=== PATIENT | male | born 1955 | race Caucasian/White ===

== ENCOUNTER 2020-06-06 10:27 | Inpatient (IN) | payer OTHER ==
--- NOTE | 2020-06-06 10:54 | ED ---
General Adult HPI - General Chief complaint: Recheck/Abnormal Lab/Rx Stated complaint: hernia, water retention Time Seen by Provider: 06/06/20 10:38 Source: patient Mode of arrival: ambulatory Limitations: no limitations - History of Present Illness Initial comments: 65-year-old male with a past medical history of hypertension, liver disease, alcoholism presents to the emergency room for abdominal distention. Patient reports he has liver disease that required paracentesis one month ago. States 7 L was removed. Patient states that he has had abdominal distention since that time but has been progressively worsening. Today was worse than before so he came into the ER. Patient is from [place] and does not have any medical care here in the [place]. Patient's paracentesis one month ago was at [facility]. Patient has no other complaints at this time including shortness of breath, chest pain, nausea or vomiting, headache, or visual changes. - Related Data Home Medications Medication Instructions Recorded Confirmed No Known Home Medications 06/06/20 06/06/20 Allergies Allergy/AdvReac Type Severity Reaction Status Date / Time No Known Allergies Allergy Verified 06/06/20 12:48 Review of Systems ROS Statement: Those systems with pertinent positive or pertinent negative responses have been documented in the HPI. ROS Other: All systems not noted in ROS Statement are negative. Past Medical History Past Medical History: Hypertension, Liver Disease History of Any Multi-Drug Resistant Organisms: None Reported Past Surgical History: Appendectomy Additional Past Surgical History / Comment(s): paracentesis, jaw Past Psychological History: No Psychological Hx Reported Smoking Status: Never smoker Past Alcohol Use History: None Reported Past Drug Use History: None Reported, Marijuana General Exam Limitations: no limitations General appearance: alert, in no apparent distress Head exam: Present: atraumatic, normocephalic, normal inspection Eye exam: Present: normal appearance, PERRL, EOMI. Absent: scleral icterus, conjunctival injection, periorbital swelling ENT exam: Present: normal exam, mucous membranes moist Neck exam: Present: normal inspection. Absent: tenderness, meningismus, lympha denopathy Respiratory exam: Present: normal lung sounds bilaterally. Absent: respiratory distress, wheezes, rales, rhonchi, stridor Cardiovascular Exam: Present: regular rate, normal rhythm, normal heart sounds. Absent: systolic murmur, diastolic murmur, rubs, gallop, clicks GI/Abdominal exam: Present: soft, distended (Significant abdominal distention with pitting edema), normal bowel sounds. Absent: tenderness, guarding, rebound, rigid Neurological exam: Present: alert Course Vital Signs 06/06/20 06/06/20 06/06/20 10:30 11:34 13:00 Temperature 98.2 F Pulse Rate 97 87 Respiratory 18 18 20 Rate Blood Pressure 147/86 141/83 O2 Sat by Pulse 100 98 Oximetry EKG Findings - EKG Comments: EKG Findings:: Normal sinus rhythm, ventricular rate 92, VA interval 172, QTc 467 Medical Decision Making - Medical Decision Making Vitals are stable. Patient does have a distended abdomen with pitting edema of the abdomen and legs. There Is no erythema of the abdomen. No tenderness. No evidence for a peritonitis. CBC CMP unremarkable. INR 1.2 which is likely secondary to liver disease, patient does not take any blood thinners. X-ray of the abdomen shows a nonobstructive bowel gas pattern. Chest x-ray does show a possible infiltrate versus atelectasis. Patient does not have cough or fever. Suspect this is atelectasis. Discussed case with Dr. Estrada who is on-call for the [facility]. He does except as admission. Agreeable to GI and IR consultation. - Lab Data Result diagrams: 06/06/20 11:15 06/06/20 10:58 Lab Results 06/06/20 06/06/20 06/06/20 Range/Units 10:58 11:15 11:15 WBC 4.4 (3.8-10.6) k/uL RBC 4.14 L (4.30-5.90) m/uL Hgb 14.4 (13.0-17.5) gm/dL Hct 41.7 (39.0-53.0) % MCV 100.8 H (80.0-100.0) fL MCH 34.7 (25.0-35.0) pg MCHC 34.4 (31.0-37.0) g/dL RDW 13.6 (11.5-15.5) % Plt Count 145 L (150-450) k/uL MPV 7.5 Neutrophils % 63 % Lymphocytes % 20 % Monocytes % 10 % Eosinophils % 3 % Basophils % 1 % Neutrophils # 2.8 (1.3-7.7) k/uL Lymphocytes # 0.9 L (1.0-4.8) k/uL Monocytes # 0.4 (0-1.0) k/uL Eosinophils # 0.1 (0-0.7) k/uL Basophils # 0.1 (0-0.2) k/uL Macrocytosis Slight PT 12.7 H (9.0-12.0) sec INR 1.2 H (<1.2) APTT 28.4 (22.0-30.0) sec Sodium 131 L (137-145) mmol/L Potassium 4.5 (3.5-5.1) mmol/L Chloride 102 (98-107) mmol/L Carbon Dioxide 23 (22-30) mmol/L Anion Gap 6 mmol/L BUN 10 (9-20) mg/dL Creatinine 0.63 L (0.66-1.25) mg/dL Est GFR (CKD-EPI)AfAm >90 (>60 ml/min/1.73 sqM) Est GFR (CKD-EPI)NonAf >90 (>60 ml/min/1.73 sqM) Glucose 98 (74-99) mg/dL Calcium 8.6 (8.4-10.2) mg/dL Total Bilirubin 2.3 H (0.2-1.3) mg/dL AST 53 (17-59) U/L ALT 19 (4-49) U/L Alkaline Phosphatase 94 (38-126) U/L Total Protein 8.1 (6.3-8.2) g/dL Albumin 2.8 L (3.5-5.0) g/dL Amylase 48 (30-110) U/L Lipase 95 (23-300) U/L Serum Alcohol <10 mg/dL Disposition Clinical Impression: Anasarca, Liver disease Disposition: ADMITTED IP TO THIS HOSP Is patient prescribed a controlled substance at d/c from ED?: No Referrals: None,Stated [Primary Care Provider] - 1-2 days Time of Disposition: 13:12
[2020-06-06 11:28] LABS: Basophils # (A) 0.1 k/uL (0-0.2); Basophils % (A) 1 %; Eosinophils # (A) 0.1 k/uL (0-0.7); Eosinophils % (A) 3 %; HCT 41.7 % (39.0-53.0); HGB 14.4 gm/dL (13.0-17.5); Lymphocytes # (A) 0.9 k/uL (1.0-4.8); Lymphocytes % (A) 20 %; MCH 34.7 pg (25.0-35.0); MCHC 34.4 g/dL (31.0-37.0); MCV 100.8 fL (80.0-100.0); Macrocytosis Slight; Mean Platelet Volume 7.5; Monocytes # (A) 0.4 k/uL (0-1.0); Monocytes % (A) 10 %; Neutrophils # (A) 2.8 k/uL (1.3-7.7); Neutrophils % (A) 63 %; Platelet Count 145 k/uL (150-450); RBC 4.14 m/uL (4.30-5.90); RDW 13.6 % (11.5-15.5); WBC 4.4 k/uL (3.8-10.6)
[2020-06-06 11:30] LABS: ALT 19 U/L (4-49); AST 53 U/L (17-59); African American GFR (CKD) >90 (>60 ml/min/1.73 sqM); Albumin 2.8 g/dL (3.5-5.0); Alcohol <10 mg/dL; Alkaline Phosphatase 94 U/L (38-126); Amylase 48 U/L (30-110); Anion Gap 6 mmol/L; Blood Urea Nitrogen 10 mg/dL (9-20); Calcium 8.6 mg/dL (8.4-10.2); Carbon Dioxide 23 mmol/L (22-30); Chloride 102 mmol/L (98-107); Glucose 98 mg/dL (74-99); Lipase 95 U/L (23-300); Non-African American GFR(CKD) >90 (>60 ml/min/1.73 sqM); Potassium 4.5 mmol/L (3.5-5.1); Sodium 131 mmol/L (137-145); Total Bilirubin 2.3 mg/dL (0.2-1.3); Total Protein 8.1 g/dL (6.3-8.2)
[2020-06-06 12:09] LABS: INR 1.2 (<1.2); Partial Thromboplastin Time 28.4 sec (22.0-30.0); Prothrombin Time 12.7 sec (9.0-12.0)
--- NOTE | 2020-06-06 12:29 | XR ---
EXAMINATION TYPE: XR KUB DATE OF EXAM: 06/06/2020 COMPARISON: NONE HISTORY: Pain TECHNIQUE: Single supine KUB image of the abdomen is obtained FINDINGS: Small bowel demonstrates no evidence for dilatation or air fluid levels. Gas and fecal material is seen in non-distended colon. No convincing evidence for pneumoperitoneum. No unusual calcifications. The lung bases are clear. The osseous structures are intact. IMPRESSION: 1. Overall nonobstructive bowel gas pattern.
--- NOTE | 2020-06-06 12:29 | XR ---
EXAMINATION TYPE: XR chest 1V portable DATE OF EXAM: 06/06/2020 HISTORY: Shortness of breath. COMPARISON: None. TECHNIQUE: Single view of the chest is submitted. FINDINGS: Demonstrated are scattered senescent parenchymal change. Right basilar infiltrate and/or atelectasis. The remainder of the lungs are clear. The heart is stable. Hilar and mediastinal structures are within normal limits. Degenerative changes are seen of the dorsal spine. IMPRESSION: 1. Right basilar infiltrate and/or atelectasis. The remainder of the lungs are clear.
[2020-06-06] MEDS ORDERED: NALOXONE 0.4 MG/ML 1 ML VIAL IV PRN (13:08)
[2020-06-06] MEDS ORDERED: HYDROmorphone 0.5 MG/0.5 ML SYRINGE IVP STA (13:09)
[2020-06-06] MEDS: SODIUM CHLORIDE 0.9% 1,000 ML IV SCH (13:33)
--- NOTE | 2020-06-06 14:17 | US ---
EXAMINATION TYPE: US abdomen limited DATE OF EXAM: 06/06/2020 COMPARISON: NONE CLINICAL HISTORY: to assess for fluid pocket please.. Ascites Large amount of fluid visualized. Limited abdomen ultrasound performed. IMPRESSION: Large amount of ascites is present.
[2020-06-06 15:21] LABS: Appearance,Urine Cloudy (Clear); Bacteria,Urine Moderate /hpf; Bilirubin,Urine Negative (Negative); Blood,Urine Trace (Negative); Color,Urine Orange; Glucose,Urine (UA) Negative (Negative); Hyaline Casts,Urine 2 /lpf (0-2); Ketones,Urine Trace (Negative); Leukocyte Esterase,Urine Small (Negative); Mucus,Urine Many /hpf; Nitrite,Urine Positive (Negative); Protein,Urine 1+ (Negative); RBC,Urine 9 /hpf (0-5); Specific Gravity,Urine 1.032 (1.001-1.035); Squamous Epithelial Cell,Urine 1 /hpf (0-4); WBC,Urine 18 /hpf (0-5)
[2020-06-06] MEDS: HYDROmorphone 0.5 MG/0.5 ML SYRINGE IVP PRN ×2 (18:23→22:18)
--- NOTE | 2020-06-06 21:03 | HP ---
HISTORY AND PHYSICAL HISTORY OF PRESENT ILLNESS: 65-year-old male with hypertension, liver disease, alcoholism, presents to the emergency room with severe bloating of the abdomen and ascitic wave. He had a paracentesis 1 month ago with 7 L were removed. Since then, he has taken no diuretics. He is from [place]. No medical care in the [place]. He came in with severe swelling of his abdomen and legs, anasarca type changes with severe abdominal girth. Medicines negative. ALLERGIES: Negative. REVIEW OF SYSTEMS: Fourteen-point review of system: Severe some weight gain in the legs and abdomen. PAST MEDICAL HISTORY: History of hypertension, liver disease, hepatitis C. SURGERIES: Appendectomy. Paracentesis. PHYSICAL EXAMINATION: Vital signs are reviewed. Psych: Fair mood and affect. Giving appropriate answers. NEUROLOGIC: Cranial nerves intact. GI is huge ascites and fluid wave to the abdomen. Full-term gravid abdomen size. HEMATOLOGIC: 2 to 3+ edema in the lower legs. ASSESSMENT: 1. Acute on chronic ascites. 2. Hepatitis C. 3. Liver failure. Diuresis, paracentesis will be done. Consult GI. Please see further orders. MMODL / IJN: [id number] /
[2020-06-06] MEDS: FUROSEMIDE 10 MG/ML 2 ML VIAL IV SCH (21:26)
[2020-06-07] MEDS: HYDROmorphone 0.5 MG/0.5 ML SYRINGE IVP PRN ×5 (01:22→23:38)
[2020-06-07 09:18] LABS: Basophils # (A) 0.05 X 10*3/uL (0.00-0.10); Basophils % (A) 1.2 %; Eosinophils # (A) 0.14 X 10*3/uL (0.04-0.35); Eosinophils % (A) 3.3 %; HGB 12.4 g/dL (13.0-17.0); Lymphocytes # (A) 1.14 X 10*3/uL (0.90-5.00); Lymphocytes % (A) 26.9 %; MCH 33.3 pg (27.0-32.0); MCHC 32.6 g/dL (32.0-37.0); MCV 102.2 fL (80.0-97.0); Mean Platelet Volume 8.8 fL (9.5-12.2); Monocytes # (A) 0.57 X 10*3/uL (0.20-1.00); Monocytes % (A) 13.4 %; Neutrophils # (A) 2.33 X 10*3/uL (1.80-7.70); Platelet Count 105 X 10*3/uL (140-440); RBC 3.72 X 10*6/uL (4.40-5.60); RDW 14.4 % (11.5-14.5); WBC 4.24 X 10*3/uL (4.50-10.00)
[2020-06-07] MEDS: FUROSEMIDE 10 MG/ML 2 ML VIAL IV SCH (09:21)
[2020-06-07 10:44] LABS: African American GFR (CKD) 121.4 (60.0-200.0); Albumin 2.5 g/dL (3.80-4.90); Albumin/Globulin Ratio 0.52 (1.60-3.17); Calcium 8.1 mg/dL (8.7-10.3); Globulin 4.8 g/dL (1.6-3.3); Non-African American GFR(CKD) 104.8 (60.0-200.0); Potassium 4.4 mmol/L (3.5-5.5); Total Bilirubin 2.4 mg/dL (0.2-1.2); Total Protein 7.3 g/dL (6.2-8.2)
[2020-06-07 11:28] LABS: INR 1.3 (<1.2); Prothrombin Time 13.2 sec (9.0-12.0)
[2020-06-07] MEDS: THIAMINE 100 MG TAB PO SCH (13:18)
[2020-06-07] MEDS: SODIUM CHLORIDE 0.9% 1,000 ML IV SCH (13:20)
--- NOTE | 2020-06-07 13:50 | US ---
EXAMINATION TYPE: US paracentesis abd w/image DATE OF EXAM: 06/07/2020 COMPARISON: NONE HISTORY: Ascites. PROCEDURE: Maximal barrier technique was utilized. The skin overlying a suitable pocket of fluid was localized with ultrasound and the overlying skin was prepped and draped. Ultrasound was utilized with sterile technique. Lidocaine was used for local anesthesia and a skin jose m made with a scalpel. Catheter was advanced under direct ultrasound guidance into a suitable pocket of fluid and approximately 13.1 lite rs of serous fluid were removed. Catheter was withdrawn and hemostasis achieved. There is no immedi ate complication; the patient is discharged in stable condition. IMPRESSION: STATUS POST ULTRASOUND GUIDED PARACENTESIS FOR PALLIATION OF ASCITES. THIS PROCEDURE WA S PERFORMED BY THE UNDERSIGNED. Specimen obtained for laboratory analysis.
[2020-06-07] MEDS: ALBUMIN HUMAN 25% 50 ML in EMPTY BAG 1 BAG IVPB SCH ×4 (15:42→16:59)
[2020-06-07 16:13] LABS: Appearance,BF Clear; Nucleated Cells, Body Fluid 53 /uL; RBC, Body Fluid 41 /uL
[2020-06-07 17:47] LABS: Mononuclear WBC,Body Fluid 86 %; Polynuclear WBC,Body Fluid 14 %; Total Cells Counted,Body Fluid 100
[2020-06-07] MEDS: FUROSEMIDE 10 MG/ML 4 ML VIAL IV SCH (22:09)
[2020-06-08 00:32] LABS: Total Protein, Body Fluid 1740 mg/dL
--- NOTE | 2020-06-08 00:51 | P.PN ---
Subjective Progress Note Date: 06/07/20 Principal diagnosis: Ascites Alcoholic liver cirrhosis Patient is a 65-year-old male with a known history of alcoholic liver cirrhosis and previous history of paracentesis and alcohol abuse presents to ER with the complaints of abdominal distention and bilateral leg swelling. Patient states that he did have paracentesis about a month ago and removed 7 L fluid. Patient has been having worsening abdominal distention and presented to ER. Denied any complaints of chest pain or shortness of breath. No fever no chills. Denies any abdominal pain. No headache or dizziness or lightheadedness. Patient is from [place] and does not have any medical care in the [place]. 06/07/2020 Patient underwent paracentesis today with 10 L fluid removal. Patient was being infused with albumin currently. No complaints of abdominal pain. Shortness of breath is better. No chest pain. No nausea vomiting abdominal pain or diarrhea. Patient is being continued Lasix 40 mg every 12 and spironolactone 50 mg daily was added. GI is on board. Urine culture showed gram-negative bacilli. Patient will be started ceftriaxone and follow-up with final culture reports. Peritoneal fluid cytology showed no evidence of SBP. Follow-up culture report. Current medications reviewed. Objective - Vital Signs Vital signs: Vital Signs Temp 98.0 F 06/07/20 21:05 Pulse 72 06/07/20 21:05 Resp 18 06/07/20 21:05 BP 108/57 06/07/20 21:05 Pulse Ox 95 06/07/20 21:05 Intake & Output 06/07/20 06/07/20 06/08/20 06:59 18:59 06:59 Intake Total 200 Balance 200 Intake: Oral 200 Other: Voiding Method Toilet Toilet Toilet Urinal Urinal Urinal # Voids 3 1 - Exam PHYSICAL EXAMINATION: Patient is lying in the bed comfortably, no acute distress, awake alert and oriented.. HEENT: Normocephalic. Neck is supple. Pupils reactive. Nostrils clear. Oral cavity is moist. Ears reveal no drainage. Neck reveals no JVD, carotid bruits, or thyromegaly. CHEST EXAMINATION: Trachea is central. Symmetrical expansion. Bibasilar diminished air entry no wheezing or crackles.. CARDIAC: Normal S1, S2 with no gallops. No murmurs ABDOMEN: Soft. Bowel sounds present, Significantly distended abdomen with large ascites. No organomegaly. No abdominal bruits. Extremities: 2+ LE edema. No clubbing or cyanosis Neurologically awake, alert, oriented x3 with well-coordinated movements. No focal deficits noted Skin: No rash or skin lesions. Psychiatric: Coperative. Nonsuicidal Musculoskeletal: No joint swelling or deformity. Normal range of motion. - Labs CBC & Chem 7: 06/07/20 06:06 06/07/20 06:06 Labs: Abnormal Lab Results - Last 24 Hours (Table) 06/06/20 06/07/20 06/07/20 Range/Units 22:36 06:06 06:06 WBC 4.24 L (4.50-10.00) X 10*3/uL RBC 3.72 L (4.40-5.60) X 10*6/uL Hgb 12.4 L (13.0-17.0) g/dL Hct 38.0 L (39.6-50.0) % MCV 102.2 H (80.0-97.0) fL MCH 33.3 H (27.0-32.0) pg Plt Count 105 L (140-440) X 10*3/uL MPV 8.8 L (9.5-12.2) fL PT 13.2 H (9.0-12.0) sec INR 1.3 H (<1.2) Sodium 132 L (135-145) mmol/L Carbon Dioxide 21.0 L (21.6-31.8) mmol/L Calcium 8.1 L (8.7-10.3) mg/dL Total Bilirubin 2.4 H (0.2-1.2) mg/dL AST 55 H (14-35) U/L Albumin 2.50 L (3.80-4.90) g/dL Globulin 4.8 H (1.6-3.3) g/dL Albumin/Globulin Ratio 0.52 L (1.60-3.17) g/dL Microbiology - Last 24 Hours (Table) 06/06/20 14:22 Urine Culture - Preliminary Urine,Clean Catch Gram Neg Bacilli Assessment and Plan Assessment: Recurrent ascites due to alcoholic liver disease Gram-negative bacilli urinary tract infection hepatitis C Prior history of alcohol abuse DVT prophylaxis with heparin subcu Plan: Patient will be continued on IV Lasix and spironolactone. Patient is currently status post paracentesis with 13.1 l fluid removal. GI is on board. Follow-up culture reports. Continue with ceftriaxone due to gram-negative bacilli urinary tract infection. Prognosis guarded at this time. Time with Patient: Greater than 30
[2020-06-08 01:34] LABS: Albumin, Fluid Source Paracentesis Fluid
[2020-06-08] MEDS: HYDROmorphone 0.5 MG/0.5 ML SYRINGE IVP PRN ×6 (04:52→22:00)
--- NOTE | 2020-06-08 07:10 | P.CONS ---
History of Present Illness - Reason for Consult Consult date: 06/07/20 Ascites, decompensated liver disease Requesting physician: Awilda Webster - Chief Complaint Abdominal distention - History of Present Illness 65-year-old male with multiple medical comorbidities including alcohol abuse, decompensated alcoholic cirrhosis of the liver with ascites who presented to the hospital due to abdominal distention. The patient has had multiple h ospitalizations since late last year. Initially this was at an outside hospital and more recently in 2020 the patient has been hospitalized at [facility] as well as at [facility] for decompensated liver cirrhosis with ascites and scrotal edema. The patient has been seen by the gastroenterology service on his recent admissions and has undergone multiple large-volume paracentesis. The patient hasn't started on diuretic therapy with high-dose Lasix and Aldactone and has been noncompliant with medications after discharge. He reports as he did not take the medications and presumed alcohol consumption after discharge. He presents back with increasing abdominal distention with lower extremity swelling. No other acute complaints at this time. The patient is status post paracentesis with 13.1 L of ascitic fluid removed. Review of Systems REVIEW OF SYSTEMS: CONSTITUTIONAL: Denies any fevers, chills, but he does report fatigue and weight gain in association with medication noncompliance. CARDIOVASCULAR: Denies any chest pain, palpitations high or low blood pressures RESPIRATORY: Denies any shortness of breath, hemoptysis or cough. GENITOURINARY: No dysuria or hematuria, he does have scrotal edema and reports soreness in his genital. MUSCULOSKELETAL: No weakness reported. SKIN: Denies any new rashes or lesions, jaundice or pallor. PSYCHIATRIC: Denies any depression or anxiety, alcohol abuse. NEUROLOGY: Denies headache, denies any new focal deficits. EARS/NOSE/THROAT: No recent hearing change, congestion, nasal discharge or sore throat. EYES: No pain in eyes, discharge or change in vision. GASTROINTESTINAL: As per HPI. Past Medical History Past Medical History: Hypertension, Liver Disease History of Any Multi-Drug Resistant Organisms: None Reported Past Surgical History: Appendectomy Additional Past Surgical History / Comment(s): paracentesis, jaw Past Anesthesia/Blood Transfusion Reactions: No Reported Reaction Past Psychological History: No Psychological Hx Reported Smoking Status: Never smoker Past Alcohol Use History: None Reported Past Drug Use History: None Reported, Marijuana Medications and Allergies Home Medications Medication Instructions Recorded Confirmed Type No Known Home Medications 06/06/20 06/06/20 History Allergies Allergy/AdvReac Type Severity Reaction Status Date / Time No Known Allergies Allergy Verified 06/06/20 12:48 Physical Exam Vitals: Vital Signs Temp Pulse Pulse Resp BP BP Pulse Ox 06/07/20 12:20 84 18 115/50 96 06/07/20 11:50 82 18 116/52 95 06/07/20 11:29 88 18 121/68 97 06/07/20 11:00 89 18 123/66 99 06/07/20 10:30 98 18 129/65 98 06/07/20 07:00 98.0 F 92 18 129/81 96 06/07/20 02:00 91 18 06/07/20 01:32 98.7 F 91 18 127/78 97 06/06/20 22:07 98.3 F 96 22 149/90 98 06/06/20 21:29 98.2 F 89 18 136/79 98 06/06/20 20:00 96 22 06/06/20 19:00 88 20 118/72 98 06/06/20 18:00 90 20 130/74 98 06/06/20 17:00 90 20 140/82 98 06/06/20 15:00 90 20 149/82 98 06/06/20 14:00 20 98 Intake and Output 06/06/20 06/07/20 06/07/20 22:59 06:59 14:59 Other: Voiding Method Toilet Toilet Toilet Urinal Urinal Urinal # Voids 2 3 On physical examination, patient appears comfortable in no apparent distress. HEAD: Normocephalic, atraumatic. EYES: No scleral icterus. No conjunctival injection. MOUTH: No lesions, tongue midline. NECK: Trachea midline, no gross abnormalities. CHEST: Clear to auscultation with no wheezing or rhonchi appreciated. HEART: Regular rate and rhythm. ABDOMEN: Soft, abdominal distention. Bowel sounds are positive. No organomegaly. No guarding or rigidity. EXTREMITIES: Bilateral 2+ lower extremity edema with chronic skin changes. SKIN: No rashes, no jaundice. NEUROLOGIC: Alert and oriented x3. No focal deficits. Results CBC & Chem 7: 06/07/20 06:06 06/07/20 06:06 Labs: Abnormal Lab Results - Last 24 Hours (Table) 06/06/20 06/06/20 06/07/20 Range/Units 14:22 22:36 06:06 WBC 4.24 L (4.50-10.00) X 10*3/uL RBC 3.72 L (4.40-5.60) X 10*6/uL Hgb 12.4 L (13.0-17.0) g/dL Hct 38.0 L (39.6-50.0) % MCV 102.2 H (80.0-97.0) fL MCH 33.3 H (27.0-32.0) pg Plt Count 105 L (140-440) X 10*3/uL MPV 8.8 L (9.5-12.2) fL PT 13.2 H (9.0-12.0) sec INR 1.3 H (<1.2) Sodium (135-145) mmol/L Carbon Dioxide (21.6-31.8) mmol/L Calcium (8.7-10.3) mg/dL Total Bilirubin (0.2-1.2) mg/dL AST (14-35) U/L Albumin (3.80-4.90) g/dL Globulin (1.6-3.3) g/dL Albumin/Globulin Ratio (1.60-3.17) g/dL Urine Protein 1+ H (Negative) Urine Ketones Trace H (Negative) Urine Blood Trace H (Negative) Ur Leukocyte Esterase Small H (Negative) Urine RBC 9 H (0-5) /hpf Urine WBC 18 H (0-5) /hpf Urine Bacteria Moderate H (None) /hpf Urine Mucus Many H (None) /hpf 06/07/20 Range/Units 06:06 WBC (4.50-10.00) X 10*3/uL RBC (4.40-5.60) X 10*6/uL Hgb (13.0-17.0) g/dL Hct (39.6-50.0) % MCV (80.0-97.0) fL MCH (27.0-32.0) pg Plt Count (140-440) X 10*3/uL MPV (9.5-12.2) fL PT (9.0-12.0) sec INR (<1.2) Sodium 132 L (135-145) mmol/L Carbon Dioxide 21.0 L (21.6-31.8) mmol/L Calcium 8.1 L (8.7-10.3) mg/dL Total Bilirubin 2.4 H (0.2-1.2) mg/dL AST 55 H (14-35) U/L Albumin 2.50 L (3.80-4.90) g/dL Globulin 4.8 H (1.6-3.3) g/dL Albumin/Globulin Ratio 0.52 L (1.60-3.17) g/dL Urine Protein (Negative) Urine Ketones (Negative) Urine Blood (Negative) Ur Leukocyte Esterase (Negative) Urine RBC (0-5) /hpf Urine WBC (0-5) /hpf Urine Bacteria (None) /hpf Urine Mucus (None) /hpf Microbiology - Last 24 Hours (Table) 06/06/20 14:22 Urine Culture - Preliminary Urine,Clean Catch US - abdomen: report reviewed (Ultrasound paracentesis with 13.1 L of ascitic fluid removed) Assessment and Plan (1) Decompensation of cirrhosis of liver Narrative/Plan: 65-year-old male with decompensated alcoholic cirrhosis of the liver with ascites. Patient has had multiple admissions to local area hospitals due to fluid overload with large volume paracentesis. Patient has been started on high dose diuretic therapy with Aldactone and Lasix however compliant with m edications after discharge and has resumed drinking alcohol. Current Visit: Yes Status: Acute Code(s): K72.90 - HEPATIC FAILURE, UNSPECIFIED WITHOUT COMA; K74.60 - UNSPECIFIED CIRRHOSIS OF LIVER SNOMED Code (s): 106422668 (2) Ascites due to alcoholic cirrhosis Current Visit: Yes Status: Acute Code(s): K70.31 - ALCOHOLIC CIRRHOSIS OF LIVER WITH ASCITES SNOMED Code(s): 2410901671107772 (3) Noncompliance with medication regimen Current Visit: Yes Status: Acute Code(s): Z91.14 - PATIENT'S OTHER NONCOMPLIANCE WITH MEDICATION REGIMEN SNOMED Code(s): 684571762 (4) Alcohol abuse Current Visit: Yes Status: Acute Code(s): F10.10 - ALCOHOL ABUSE, UNCOMP LICATED SNOMED Code(s): 43096722 Plan: Supportive care Sodium restricted diet Continue to monitor CBC, BMP, LFTs Lasix increased to 40 mg IV twice daily Spironolactone 50 mg daily added Alcohol abstinence Extensive discussion with the patient on the need for medication compliance and alcohol abstinence, overall prognosis is poor Continue large volume paracentesis as needed Albumin ordered due to large-volume paracentesis with 13.1 L of ascitic fluid removed Social work consult placed, patient at risk for readmission Thank you for allowing us to participate in the care of the patient
[2020-06-08] MEDS: THIAMINE 100 MG TAB PO SCH (08:12)
[2020-06-08] MEDS: FUROSEMIDE 10 MG/ML 4 ML VIAL IV SCH ×2 (08:12→22:00)
[2020-06-08 08:13] LABS: African American GFR (CKD) >90 (>60 ml/min/1.73 sqM); Anion Gap 4 mmol/L; Blood Urea Nitrogen 14 mg/dL (9-20); Calcium 7.9 mg/dL (8.4-10.2); Carbon Dioxide 26 mmol/L (22-30); Chloride 101 mmol/L (98-107); Glucose 91 mg/dL (74-99); Non-African American GFR(CKD) >90 (>60 ml/min/1.73 sqM); Potassium 3.8 mmol/L (3.5-5.1); Sodium 131 mmol/L (137-145)
[2020-06-08] MEDS: SPIRONOLACTONE 25 MG TAB PO SCH (08:20)
[2020-06-08 11:42] LABS: Basophils # (A) 0.04 X 10*3/uL (0.00-0.10); Basophils % (A) 1.1 %; Eosinophils % (A) 2.8 %; HCT 35.3 % (39.6-50.0); HGB 11.6 g/dL (13.0-17.0); Lymphocytes # (A) 1.06 X 10*3/uL (0.90-5.00); Lymphocytes % (A) 29.2 %; MCH 33.2 pg (27.0-32.0); MCHC 32.9 g/dL (32.0-37.0); MCV 101.1 fL (80.0-97.0); Mean Platelet Volume 8.5 fL (9.5-12.2); Monocytes # (A) 0.48 X 10*3/uL (0.20-1.00); Monocytes % (A) 13.2 %; Neutrophils # (A) 1.95 X 10*3/uL (1.80-7.70); Neutrophils % (A) 53.7 %; Platelet Count 99 X 10*3/uL (140-440); RBC 3.49 X 10*6/uL (4.40-5.60); RDW 13.8 % (11.5-14.5); WBC 3.63 X 10*3/uL (4.50-10.00)
[2020-06-08] MEDS: SODIUM CHLORIDE 0.9% 1,000 ML IV SCH (14:31)
--- NOTE | 2020-06-08 15:22 | P.PN ---
Subjective Progress Note Date: 06/08/20 Ascites Alcoholic liver cirrhosis Patient is a 65-year-old male with a known history of alcoholic liver cirrhosis and previous history of paracentesis and alcohol abuse presents to ER with the complaints of abdominal distention and bilateral leg swelling. Patient states that he did have paracentesis about a month ago and removed 7 L fluid. Patient has been having worsening abdominal distention and presented to ER. Denied any complaints of chest pain or shortness of breath. No fever no chills. Denies any abdominal pain. No headache or dizziness or lightheadedness. Patient is from [place] and does not have any medical care in the . 06/07/2020 Patient underwent paracentesis today with 10 L fluid removal. Patient was being infused with albumin currently. No complaints of abdominal pain. Shortness of breath is better. No chest pain. No nausea vomiting abdominal pain or diarrhea. Patient is being continued Lasix 40 mg every 12 and spironolactone 50 mg daily was added. GI is on board. Urine culture showed gram-negative bacilli. Patient will be started ceftriaxone and follow-up with final culture reports. Peritoneal fluid cytology showed no evidence of SBP. Follow-up culture report. 06/08/2020 Patient is seen and evaluated and follow-up continues to have severe abdominal distention and being followed by GI. Patient was started on Lasix along with Aldactone and will continue. Patient will likely need another paracentesis in a few days after recovery from almost 13 L removed yesterday. Patient is also status post albumin infusion. Patient continues to have abdominal discomfort and tenderness although states is somewhat improved. Urine culture preliminary shows gram-negative bacilli and patient was started on IV ceftriaxone and will continue to monitor until cultures finalize to determine discharge antibiotics. Hemoglobin is stable at 11.6. Sodium is 131 with a potassium of 3.8 and current creatinine is 0.68. Review of systems: Constitutional: No reports of fatigue, fever, or chills Cardiovascular: No reports of chest pain or palpitations Respiratory: No reports of shortness of breath or cough GI: No reports of nausea, vomiting, or diarrhea, reports continued abdominal discomfort and tenderness : No reports of dysuria or retention Neurovascular: No reports of weakness or numbness All medications have been reviewed Objective - Vital Signs Vital signs: Vital Signs Temp 98.5 F 06/08/20 07:56 Pulse 83 06/08/20 07:56 Resp 20 06/08/20 07:56 BP 105/61 06/08/20 07:56 Pulse Ox 97 06/08/20 07:56 Intake & Output 06/07/20 06/08/20 06/08/20 18:59 06:59 18:59 Intake Total 200 240 Balance 200 240 Intake: Oral 200 240 Other: Voiding Method Toilet Toilet Toilet Urinal Urinal Urinal # Voids 2 - Exam PHYSICAL EXAMINATION: Patient is sitting up in the bed comfortably, no acute distress, awake alert and oriented.. HEENT: Normocephalic. Neck is supple. Pupils reactive. Nostrils clear. Oral cavity is moist. Ears reveal no drainage. Neck reveals no JVD, carotid bruits, or thyromegaly. CHEST EXAMINATION: Trachea is central. Symmetrical expansion. Bibasilar diminished air entry no wheezing or crackles.. CARDIAC: Normal S1, S2 with no gallops. No murmurs ABDOMEN: Soft. Bowel sounds present, continues with Significantly distended abdomen with large ascites. No organomegaly. No abdominal bruits. Mild abdominal tenderness on palpation Extremities: 2+ LE edema. No clubbing or cyanosis Neurologically awake, alert, oriented x3 with well-coordinated movements. No focal deficits noted Skin: No rash or skin lesions. Psychiatric: Cooperative. Non-suicidal Musculoskeletal: No joint swelling or deformity. Normal range of motion. - Labs CBC & Chem 7: 06/08/20 06:49 06/08/20 06:49 Labs: Abnormal Lab Results - Last 24 Hours (Table) 06/08/20 06/08/20 Range/Units 06:49 06:49 WBC 3.63 L (4.50-10.00) X 10*3/uL RBC 3.49 L (4.40-5.60) X 10*6/uL Hgb 11.6 L (13.0-17.0) g/dL Hct 35.3 L (39.6-50.0) % MCV 101.1 H (80.0-97.0) fL MCH 33.2 H (27.0-32.0) pg Plt Count 99 L (140-440) X 10*3/uL Plt Count Comment DECREASED A MPV 8.5 L (9.5-12.2) fL Sodium 131 L (137-145) mmol/L Calcium 7.9 L (8.4-10.2) mg/dL Microbiology - Last 24 Hours (Table) 06/06/20 14:22 Urine Culture - Preliminary Urine,Clean Catch Gram Neg Bacilli Assessment and Plan Assessment: Recurrent ascites due to alcoholic liver disease status post paracentesis with almost 13 m removal Gram-negative bacilli urinary tract infection hepatitis C Prior history of alcohol abuse DVT prophylaxis with heparin subcu Full code Plan: Patient will be continued on IV Lasix and spironolactone. Patient is recently status post paracentesis with 13.1 l fluid removal yesterday and also received albumin infusions. GI is on board. Per GI recommendations patient may follow- up outpatient with nurse practitioner Obdulia Lopez in the office and discuss paracentesis again. Follow-up culture reports. Continue with ceftriaxone due to gram-negative bacilli urinary tract infection while awaiting for cultures to finalize. Prognosis guarded at this time. Further recommendations to follow. Possible discharge in 24-48 hours.
--- NOTE | 2020-06-08 15:25 | P.PN ---
Subjective Progress Note Date: 06/08/20 Principal diagnosis: Ascites, decompensated liver disease Should seen and examined sitting up at bedside. He is tolerating a low sodium diet. He states he still has some abdominal discomfort due to distention. He is status post paracentesis yesterday with 13.1 L of fluid removal. Fluid studies reviewed and consistent with cirrhosis of the liver. Patient also states that he was positive for hepatitis C and treated years ago with interferon. He is denying any nausea or vomiting. He is alert and oriented 3. Objective - Vital Signs Vital signs: Vital Signs Temp 98.5 F 06/08/20 07:56 Pulse 83 06/08/20 07:56 Resp 20 06/08/20 07:56 BP 105/61 06/08/20 07:56 Pulse Ox 97 06/08/20 07:56 Intake & Output 06/07/20 06/08/20 06/08/20 18:59 06:59 18:59 Intake Total 200 Balance 200 Intake: Oral 200 Other: Voiding Method Toilet Toilet Toilet Urinal Urinal Urinal # Voids 2 - Exam General appearance: The patient is alert, oriented, appears in no acute distress. HET: Head is normocephalic and atraumatic. Conjunctiva pink. Sclera icteric. Neck: Supple without lymphadenopathy. Abdomen: Soft, tender, grossly distended. No guarding or rigidity. Extremities: Normal skin color and turgor. Bilateral pedal edema Skin: No rashes, jaundice Neurological: No focal deficits. Alert and oriented 3. - Labs CBC & Chem 7: 06/08/20 06:49 06/08/20 06:49 Labs: Abnormal Lab Results - Last 24 Hours (Table) 06/06/20 06/07/20 06/07/20 Range/Units 22:36 06:06 06:06 WBC 4.24 L (4.50-10.00) X 10*3/uL RBC 3.72 L (4.40-5.60) X 10*6/uL Hgb 12.4 L (13.0-17.0) g/dL Hct 38.0 L (39.6-50.0) % MCV 102.2 H (80.0-97.0) fL MCH 33.3 H (27.0-32.0) pg Plt Count 105 L (140-440) X 10*3/uL MPV 8.8 L (9.5-12.2) fL PT 13.2 H (9.0-12.0) sec INR 1.3 H (<1.2) Sodium 132 L (135-145) mmol/L Carbon Dioxide 21.0 L (21.6-31.8) mmol/L Calcium 8.1 L (8.7-10.3) mg/dL Total Bilirubin 2.4 H (0.2-1.2) mg/dL AST 55 H (14-35) U/L Albumin 2.50 L (3.80-4.90) g/dL Globulin 4.8 H (1.6-3.3) g/dL Albumin/Globulin Ratio 0.52 L (1.60-3.17) g/dL 06/08/20 Range/Units 06:49 WBC (4.50-10.00) X 10*3/uL RBC (4.40-5.60) X 10*6/uL Hgb (13.0-17.0) g/dL Hct (39.6-50.0) % MCV (80.0-97.0) fL MCH (27.0-32.0) pg Plt Count (140-440) X 10*3/uL MPV (9.5-12.2) fL PT (9.0-12.0) sec INR (<1.2) Sodium 131 L (135-145) mmol/L Carbon Dioxide (21.6-31.8) mmol/L Calcium 7.9 L (8.7-10.3) mg/dL Total Bilirubin (0.2-1.2) mg/dL AST (14-35) U/L Albumin (3.80-4.90) g/dL Globulin (1.6-3.3) g/dL Albumin/Globulin Ratio (1.60-3.17) g/dL Microbiology - Last 24 Hours (Table) 06/06/20 14:22 Urine Culture - Preliminary Urine,Clean Catch Gram Neg Bacilli Assessment and Plan (1) Decompensation of cirrhosis of liver Narrative/Plan: 65-year-old male with decompensated alcoholic cirrhosis of the liver with ascites. Patient has had multiple admissions to local area hospitals due to fluid overload with large volume paracentesis. Patient has been started on high dose diuretic therapy with Aldactone and Lasix however compliant with medications after discharge and has resumed drinking alcohol. Current Visit: Yes Status: Acute Code(s): K72.90 - HEPATIC FAILURE, UNSPE CIFIED WITHOUT COMA; K74.60 - UNSPECIFIED CIRRHOSIS OF LIVER SNOMED Code(s): 271920056 (2) Ascites due to alcoholic cirrhosis Narrative/Plan: The patient is status post paracentesis of 13.1 L of fluid removal and albumin. He will likely need weekly outpatient paracentesis. Patient has been noncompliant in the past with diuretics, discussed again with patient importance of compliance with diuretics. Current Visit: Yes Status: Acute Code(s): K70.31 - ALCOHOLIC CIRRHOSIS OF LIVER WITH ASCITES SNOMED Code(s): 1504530639147311 (3) Alcohol abuse Current Visit: Yes Status: Acute Code(s): F10.10 - ALCOHOL ABUSE, UNCOMPLICATED SNOMED Code(s): 71235621 (4) Noncompliance with medication regimen Current Visit: Yes Status: Acute Code(s): Z91.14 - PATIENT'S OTHER NONCOMPLIANCE WITH MEDICATION REGIMEN SNOMED Code(s): 997965466 Plan: Supportive care Sodium restricted diet Continue to monitor CBC, BMP, LFTs Lasix increased to 40 mg IV twice daily Spironolactone 50 mg daily added Alcohol abstinence Extensive discussion with the patient on the need for medication compliance and alcohol abstinence, overall prognosis is poor Continue large volume paracentesis as needed Albumin ordered due to large-volume paracentesis with 13.1 L of ascitic fluid removed Social work consult placed, patient at risk for readmission Thank you for allowing us to participate in the care of the patient, patient may be discharged home with outpatient follow up Dr. Lala I agree with the dictator's note, documented as a scribe by Sheela Romano.
[2020-06-09] MEDS: HYDROmorphone 0.5 MG/0.5 ML SYRINGE IVP PRN ×5 (01:36→23:17)
[2020-06-09] MEDS: FUROSEMIDE 10 MG/ML 4 ML VIAL IV SCH ×3 (09:14→23:17)
[2020-06-09] MEDS: SPIRONOLACTONE 25 MG TAB PO SCH (09:14)
[2020-06-09] MEDS: THIAMINE 100 MG TAB PO SCH (09:14)
--- NOTE | 2020-06-09 12:24 | P.PN ---
Subjective Progress Note Date: 06/09/20 Principal diagnosis: Decompensated alcoholic cirrhosis, ascites The patient is seen lying in bed in no acute complaints. Tolerating diet. Objective - Vital Signs Vital signs: Vital Signs Temp 98.1 F 06/09/20 08:13 Pulse 85 06/09/20 08:13 Resp 20 06/09/20 08:13 BP 120/64 06/09/20 08:13 Pulse Ox 95 06/09/20 08:13 Intake & Output 06/08/20 06/09/20 06/09/20 18:59 06:59 18:59 Intake Total 480 240 Balance 480 240 Intake: Oral 480 240 Other: Voiding Method Toilet Toilet Toilet Urinal Urinal Urinal # Voids 2 3 - Exam On physical examination, patient appears comfortable in no apparent distress. HEAD: Normocephalic, atraumatic. EYES: No scleral icterus. No conjunctival injection. MOUTH: No lesions, tongue midline. NECK: Trachea midline, no gross abnormalities. ABDOMEN: Soft, obese, moderately distended with reducible umbilical hernia and positive fluid wave. Bowel sounds are positive. No organomegaly. No guarding or rigidity. EXTREMITIES: Bilateral 2+ pedal edema. SKIN: No rashes, no jaundice. NEUROLOGIC: Alert and oriented x3. No focal deficits. - Labs CBC & Chem 7: 06/08/20 06:49 06/08/20 06:49 Labs: Abnormal Lab Results - Last 24 Hours (Table) 06/08/20 Range/Units 06:49 WBC 3.63 L (4.50-10.00) X 10*3/uL RBC 3.49 L (4.40-5.60) X 10*6/uL Hgb 11.6 L (13.0-17.0) g/dL Hct 35.3 L (39.6-50.0) % MCV 101.1 H (80.0-97.0) fL MCH 33.2 H (27.0-32.0) pg Plt Count 99 L (140-440) X 10*3/uL Plt Count Comment DECREASED A MPV 8.5 L (9.5-12.2) fL Assessment and Plan (1) Decompensation of cirrhosis of liver Narrative/Plan: 65-year-old male with decompensated alcoholic cirrhosis of the liver with ascites. Patient has had multiple admissions to local area hospitals due to fluid overload with large volume paracentesis. Patient has been started on high dose diuretic therapy with Aldactone and Lasix however compliant with medications after discharge and has resumed drinking alcohol. Current Visit: Yes Status: Acute Code(s): K72.90 - HEPATIC FAILURE, UNSPECIFIED WITHOUT COMA; K74.60 - UNSPECIFIED CIRRHOSIS OF LIVER SNOMED Co de(s): 929418466 (2) Ascites due to alcoholic cirrhosis Current Visit: Yes Status: Acute Code(s): K70.31 - ALCOHOLIC CIRRHOSIS OF LIVER WITH ASCITES SNOMED Code(s): 5433856455801041 (3) Noncompliance with medication regimen Current Visit: Yes Status: Acute Code(s): Z91.14 - PATIENT'S OTHER NONCOMPLIANCE WITH MEDICATION REGIMEN SNOMED Code(s): 049208549 (4) Alcohol abuse Current Visit: Yes Status: Acute Code(s): F10.10 - ALCOHOL ABUSE, UNCO MPLICATED SNOMED Code(s): 84472897 Plan: Supportive care Sodium restricted diet Continue to monitor CBC, BMP, LFTs Lasix increased to 40 mg IV 3 times a day Spironolactone increased to 100 mg daily Alcohol abstinence Extensive discussion with the patient on the need for medication compliance and alcohol abstinence, overall prognosis is poor Consider repeat paracentesis on Thursday if patient has not been discharged Thank you for allowing us to participate in the care of the patient
[2020-06-09] MEDS: SODIUM CHLORIDE 0.9% 1,000 ML IV SCH (13:57)
[2020-06-10] MEDS: HYDROmorphone 0.5 MG/0.5 ML SYRINGE IVP PRN ×6 (03:12→22:32)
[2020-06-10] MEDS: THIAMINE 100 MG TAB PO SCH (08:03)
[2020-06-10] MEDS: SPIRONOLACTONE 25 MG TAB PO SCH (08:03)
[2020-06-10] MEDS: FUROSEMIDE 10 MG/ML 4 ML VIAL IV SCH ×3 (08:03→23:43)
--- NOTE | 2020-06-10 10:51 | P.PN ---
Subjective Progress Note Date: 06/10/20 Principal diagnosis: Decompensated alcoholic cirrhosis, ascites The patient is seen lying in bed and still reporting abdominal distention. No acute complaints. Tolerating diet. Objective - Vital Signs Vital signs: Vital Signs Temp 97.4 F L 06/10/20 08:12 Pulse 84 06/10/20 08:12 Resp 19 06/10/20 08:12 BP 127/68 06/10/20 08:12 Pulse Ox 95 06/10/20 08:12 Intake & Output 06/09/20 06/10/20 06/10/20 18:59 06:59 18:59 Intake Total 720 180 Balance 720 180 Intake: Oral 720 180 Other: Voiding Method Toilet Toilet Urinal Urinal # Voids 3 3 - Exam On physical examination, patient appears comfortable in no apparent distress. HEAD: Normocephalic, atraumatic. EYES: No scleral icterus. No conjunctival injection. MOUTH: No lesions, tongue midline. NECK: Trachea midline, no gross abnormalities. ABDOMEN: Soft, obese, moderately distended with reducible umbilical hernia and positive fluid wave. Bowel sounds are positive. No organomegaly. No guarding or rigidity. EXTREMITIES: Bilateral 2+ pedal edema. SKIN: No rashes, no jaundice. NEUROLOGIC: Alert and oriented x3. No focal deficits. - Labs CBC & Chem 7: 06/08/20 06:49 06/08/20 06:49 Labs: Microbiology - Last 24 Hours (Table) 06/06/20 14:22 Urine Culture - Final Urine,Clean Catch Escherichia coli Assessment and Plan (1) Decompensation of cirrhosis of liver Narrative/Plan: 65-year-old male with decompensated alcoholic cirrhosis of the liver with ascites. Patient has had multiple admissions to local area hospitals due to fluid overload with large volume paracentesis. Patient has been started on high dose diuretic therapy with Aldactone and Lasix however compliant with medications after discharge and has resumed drinking alcohol. Current Visit: Yes Status: Acute Code(s): K72.90 - HEPATIC FAILURE, UNSPECIFIED WITHOUT COMA; K74.60 - UNSPECIFIED CIRRHOSIS OF LIVER SNOMED Code(s): 409464851 (2) Ascites due to alcoholic cirrhosis Current Visit: Yes Status: Acute Code(s): K70.31 - ALCOHOLIC CIRRHOSIS OF LI MALLY WITH ASCITES SNOMED Code(s): 0767483432779881 (3) Noncompliance with medication regimen Current Visit: Yes Status: Acute Code(s): Z91.14 - PATIENT'S OTHER NONCOMPLIANCE WITH MEDICATION REGIMEN SNOMED Code(s): 374011134 (4) Alcohol abuse Current Visit: Yes Status: Acute Code(s): F10.10 - ALCOHOL ABUSE, UNCOMPLICATED SNOMED Code(s): 21599282 Plan: Supportive care Sodium restricted diet Continue to monitor CBC, BMP, LFTs Lasix IV 3 times a day Spironolactone 100 mg daily Alcohol abstinence Extensive discussion with the patient on the need for medication compliance and alcohol abstinence, overall prognosis is poor Therapeutic paracentesis ordered Thank you for allowing us to participate in the care of the patient
[2020-06-10] MEDS: SODIUM CHLORIDE 0.9% 1,000 ML IV SCH (12:59)
--- NOTE | 2020-06-11 02:15 | P.PN ---
Subjective Progress Note Date: 06/09/20 Principal diagnosis: Ascites Alcoholic liver cirrhosis Patient is a 65-year-old male with a known history of alcoholic liver cirrhosis and previous history of paracentesis and alcohol abuse presents to ER with the complaints of abdominal distention and bilateral leg swelling. Patient states that he did have paracentesis about a month ago and removed 7 L fluid. Patient has been having worsening abdominal distention and presented to ER. Denied any complaints of chest pain or shortness of breath. No fever no chills. Denies any abdominal pain. No headache or dizziness or lightheadedness. Patient is from [place] and does not have any medical care in the . 06/07/2020 Patient underwent paracentesis today with 10 L fluid removal. Patient was being infused with albumin currently. No complaints of abdominal pain. Shortness of breath is better. No chest pain. No nausea vomiting abdominal pain or diarrhea. Patient is being continued Lasix 40 mg every 12 and spironolactone 50 mg daily was added. GI is on board. Urine culture showed gram-negative bacilli. Patient will be started ceftriaxone and follow-up with final culture reports. Peritoneal fluid cytology showed no evidence of SBP. Follow-up culture report. 06/09/2020 Patient is currently lying in the bed. Awake alert oriented x3. Denies any abdominal pain. Patient states that he is feeling tired.. Abdominal still distended with ascites. Patient is being treated Lasix and spironolactone. GI is on board. Patient has been afebrile. Urine culture showed E. coli. Continue ceftriaxone. Current medications reviewed. Objective - Vital Signs Vital signs: Vital Signs Temp 97.8 F 06/09/20 14:45 Pulse 83 06/09/20 14:45 Resp 20 06/09/20 14:45 BP 101/57 06/09/20 14:45 Pulse Ox 97 06/09/20 14:45 Intake & Output 06/09/20 06/09/20 06/10/20 06:59 18:59 06:59 Intake Total 720 Balance 720 Intake: Oral 720 Other: Voiding Method Toilet Toilet Urinal Urinal # Voids 3 3 - Exam PHYSICAL EXAMINATION: Patient is lying in the bed comfortably, no acute distress, awake alert and oriented.. HEENT: Normocephalic. Neck is supple. Pupils reactive. Nostrils clear. Oral cavity is moist. Ears reveal no drainage. Neck reveals no JVD, carotid bruits, or thyromegaly. CHEST EXAMINATION: Trachea is central. Symmetrical expansion. Bibasilar di minished air entry no wheezing or crackles.. CARDIAC: Normal S1, S2 with no gallops. No murmurs ABDOMEN: Soft. Bowel sounds present, Significantly distended abdomen with large ascites. No organomegaly. No abdominal bruits. Extremities: 2+ LE edema. No clubbing or cyanosis Neurologically awake, alert, oriented x3 with well-coordinated movements. No focal deficits noted Skin: No rash or skin lesions. Psychiatric: Coperative. Nonsuicidal Musculoskeletal: No joint swelling or deformity. Normal range of motion. - Labs CBC & Chem 7: 06/08/20 06:49 06/08/20 06:49 Labs: Microbiology - Last 24 Hours (Table) 06/06/20 14:22 Urine Culture - Final Urine,Clean Catch Escherichia coli Assessment and Plan Assessment: Recurrent ascites due to alcoholic liver disease Gram-negative bacilli/ Ecoli urinary tract infection hepatitis C Prior history of alcohol abuse DVT prophylaxis with heparin subcu Plan: Patient will be continued on IV Lasix and spironolactone. Patient is currently status post paracentesis with 13.1 l fluid removal. Repeat paracentesis on Thursday due to significant ascites. GI is on board. Follow-up culture reports. Continue with ceftriaxone due to gram-negative bacilli urinary tract infection. Prognosis guarded at this time. Time with Patient: Greater than 30
--- NOTE | 2020-06-11 02:16 | P.PN ---
Subjective Progress Note Date: 06/10/20 Principal diagnosis: Ascites Alcoholic liver cirrhosis Patient is a 65-year-old male with a known history of alcoholic liver cirrhosis and previous history of paracentesis and alcohol abuse presents to ER with the complaints of abdominal distention and bilateral leg swelling. Patient states that he did have paracentesis about a month ago and removed 7 L fluid. Patient has been having worsening abdominal distention and presented to ER. Denied any complaints of chest pain or shortness of breath. No fever no chills. Denies any abdominal pain. No headache or dizziness or lightheadedness. Patient is from [place] and does not have any medical care in the [place]. 06/07/2020 Patient underwent paracentesis today with 10 L fluid removal. Patient was being infused with albumin currently. No complaints of abdominal pain. Shortness of breath is better. No chest pain. No nausea vomiting abdominal pain or diarrhea. Patient is being continued Lasix 40 mg every 12 and spironolactone 50 mg daily was added. GI is on board. Urine culture showed gram-negative bacilli. Patient will be started ceftriaxone and follow-up with final culture reports. Peritoneal fluid cytology showed no evidence of SBP. Follow-up culture report. 06/09/2020 Patient is currently lying in the bed. Awake alert oriented x3. Denies any abdominal pain. Patient states that he is feeling tired.. Abdominal still distended with ascites. Patient is being treated Lasix and spironolactone. GI is on board. Patient has been afebrile. Urine culture showed E. coli. Continue ceftriaxone. 06/09/2020 Patient is currently resting in the bed. Still complains of abdominal distention and feeling tired. Continued on IV Lasix and spironolactone. Monitor electrolytes. Repeat paracentesis tomorrow followed by albumin infusion. GI is on board. Patient has been afebrile. Continue antibiotics for an E. coli urinary tract infection. No nausea vomiting or diarrhea. Current medications reviewed. Objective - Vital Signs Vital signs: Vital Signs Temp 98.5 F 06/10/20 19:33 Pulse 85 06/10/20 19:33 Resp 18 06/10/20 19:33 BP 109/62 06/10/20 19:33 Pulse Ox 96 06/10/20 19:33 Intake & Output 06/10/20 06/10/20 06/11/20 06:59 18:59 06:59 Intake Total 660 Balance 660 Intake: Oral 660 Other: Voiding Method Toilet Toilet Urinal Urinal # Voids 3 4 # Bowel Movements 1 - Exam PHYSICAL EXAMINATION: Patient is lying in the bed comfortably, no acute distress, awake alert and oriented.. HEENT: Normocephalic. Neck is supple. Pupils reactive. Nostrils clear. Oral cavity is moist. Ears reveal no drainage. Neck reveals no JVD, carotid bruits, or thyromegaly. CHEST EXAMINATION: Trachea is central. Symmetrical expansion. Bibasilar diminished air entry no wheezing or crackles.. CARDIAC: Normal S1, S2 with no gallops. No murmurs ABDOMEN: Soft. Bowel sounds present, Significantly distended abdomen with large ascites. No organomegaly. No abdominal bruits. Extremities: 2+ LE edema. No clubbing or cyanosis Neurologically awake, alert, oriented x3 with well-coordinated movements. No focal deficits noted Skin: No rash or skin lesions. Psychiatric: Coperative. Nonsuicidal Musculoskeletal: No joint swelling or deformity. Normal range of motion. - Labs CBC & Chem 7: 06/08/20 06:49 06/08/20 06:49 Assessment and Plan Assessment: Recurrent ascites due to alcoholic liver disease Gram-negative bacilli/ Ecoli urinary tract infection hepatitis C Prior history of alcohol abuse DVT prophylaxis with heparin subcu Plan: Patient will be continued on IV Lasix and spironolactone. Patient is currently status post paracentesis with 13.1 l fluid removal. Repeat paracentesis on Thursday due to significant ascites. GI is on board. Follow-up culture reports. Continue with ceftriaxone due to gram-negative bacilli urinary tract infection. Prognosis guarded at this time.
[2020-06-11] MEDS: HYDROmorphone 0.5 MG/0.5 ML SYRINGE IVP PRN ×4 (02:58→21:32)
[2020-06-11 06:27] LABS: Basophils % (A) 1 %; Eosinophils # (A) 0.1 k/uL (0-0.7); Eosinophils % (A) 4 %; HCT 34.9 % (39.0-53.0); Lymphocytes % (A) 31 %; MCHC 32.8 g/dL (31.0-37.0); MCV 100.6 fL (80.0-100.0); Macrocytosis Slight; Mean Platelet Volume 6.6; Monocytes # (A) 0.4 k/uL (0-1.0); Monocytes % (A) 11 %; Neutrophils # (A) 1.7 k/uL (1.3-7.7); Neutrophils % (A) 50 %; Platelet Count 120 k/uL (150-450); RBC 3.47 m/uL (4.30-5.90); WBC 3.3 k/uL (3.8-10.6)
[2020-06-11 06:28] LABS: ALT 16 U/L (4-49); AST 48 U/L (17-59); African American GFR (CKD) >90 (>60 ml/min/1.73 sqM); Albumin 2.2 g/dL (3.5-5.0); Albumin/Globulin Ratio 0.5; Alkaline Phosphatase 79 U/L (38-126); Anion Gap 4 mmol/L; Blood Urea Nitrogen 15 mg/dL (9-20); Calcium 7.4 mg/dL (8.4-10.2); Carbon Dioxide 29 mmol/L (22-30); Chloride 99 mmol/L (98-107); Globulin 4.3 g/dL; Glucose 93 mg/dL (74-99); Non-African American GFR(CKD) >90 (>60 ml/min/1.73 sqM); Potassium 3.1 mmol/L (3.5-5.1); Sodium 132 mmol/L (137-145); Total Bilirubin 1.6 mg/dL (0.2-1.3); Total Protein 6.5 g/dL (6.3-8.2)
[2020-06-11 06:33] LABS: HGB 11.4 gm/dL (13.0-17.5)
[2020-06-11] MEDS: FUROSEMIDE 10 MG/ML 4 ML VIAL IV SCH ×3 (07:58→23:22)
[2020-06-11 10:14] LABS: Mean Platelet Volume 6.6; Platelet Count 146 k/uL (150-450)
[2020-06-11 10:26] LABS: INR 1.2 (<1.2); Prothrombin Time 12.7 sec (9.0-12.0)
--- NOTE | 2020-06-11 11:31 | P.PN ---
Subjective Progress Note Date: 06/11/20 Principal diagnosis: Ascites, decompensated liver disease This is a pleasant 65-year-old male with multiple medical comorbidities including alcohol abuse, decompensated alcoholic cirrhosis of the liver with ascites who was admitted to the hospital for increased abdominal distention. He has multiple hospitalizations for the same, he is noncompliant with medications and follow-up appointments. He said previous multiple large-volume paracentesis in the past. He continues to drink alcohol. Today he denies any severe abdominal pain, nausea, or vomiting. He still reports abdominal discomfort due to distention. He is scheduled today for a therapeutic paracentesis. He is status post paracentesis 4 days ago with 13.1 L of fluid removed. Objective - Vital Signs Vital signs: Vital Signs Temp 98.2 F 06/11/20 07:03 Pulse 80 06/11/20 07:03 Resp 18 06/11/20 08:00 BP 102/50 06/11/20 07:03 Pulse Ox 96 06/11/20 07:03 Intake & Output 06/10/20 06/11/20 06/11/20 18:59 06:59 18:59 Intake Total 660 Balance 660 Intake: Oral 660 Other: Voiding Method Toilet Toilet Toilet Urinal Urinal Urinal # Voids 4 4 # Bowel Movements 1 - Exam General appearance: The patient is alert, oriented, appears in no acute distress. HET: Head is normocephalic and atraumatic. Conjunctiva pink. Sclera icteric. Neck: Supple without lymphadenopathy. Abdomen: Soft, tender, grossly distended. No guarding or rigidity. Extremities: Normal skin color and turgor. Bilateral pedal edema Skin: No rashes, jaundice Neurological: No focal deficits. Alert and oriented 3. - Labs CBC & Chem 7: 06/11/20 09:42 06/11/20 05:41 Labs: Abnormal Lab Results - Last 24 Hours (Table) 06/11/20 06/11/20 06/11/20 Range/Units 05:41 05:41 09:42 WBC 3.3 L (3.8-10.6) k/uL RBC 3.47 L (4.30-5.90) m/uL Hgb 11.4 L D (13.0-17.5) gm/dL Hct 34.9 L (39.0-53.0) % MCV 100.6 H (80.0-100.0) fL Plt Count 120 L 146 L (150-450) k/uL PT (9.0-12.0) sec INR (<1.2) Sodium 132 L (137-145) mmol/L Potassium 3.1 L (3.5-5.1) mmol/L Creatinine 0.60 L (0.66-1.25) mg/dL Calcium 7.4 L (8.4-10.2) mg/dL Total Bilirubin 1.6 H (0.2-1.3) mg/dL Albumin 2.2 L (3.5-5.0) g/dL 06/11/20 Range/Units 09:42 WBC (3.8-10.6) k/uL RBC (4.30-5.90) m/uL Hgb (13.0-17.5) gm/dL Hct (39.0-53.0) % MCV (80.0-100.0) fL Plt Count (150-450) k/uL PT 12.7 H (9.0-12.0) sec INR 1.2 H (<1.2) Sodium (137-145) mmol/L Potassium (3.5-5.1) mmol/L Creatinine (0.66-1.25) mg/dL Calcium (8.4-10.2) mg/dL Total Bilirubin (0.2-1.3) mg/dL Albumin (3.5-5.0) g/dL Assessment and Plan (1) Decompensation of cirrhosis of liver Narrative/Plan: 65-year-old male with decompensated alcoholic cirrhosis of the liver with ascites. Patient has had multiple admissions to local area hospitals due to fluid overload with large volume paracentesis. Patient has been started on high dose diuretic therapy with Aldactone and Lasix however compliant with medications after discharge and has resumed drinking alcohol. Current Visit: Yes Status: Acute Code(s): K72.90 - HEPATIC FAILURE, UNSPEC IFIED WITHOUT COMA; K74.60 - UNSPECIFIED CIRRHOSIS OF LIVER SNOMED Code(s): 186970938 (2) Ascites due to alcoholic cirrhosis Narrative/Plan: The patient is status post paracentesis of 13.1 L of fluid removal and albumin. He will likely need weekly outpatient paracentesis. Patient has been noncompliant in the past with diuretics, discussed again with patient importance of compliance with diuretics. Patient is scheduled for repeat therapeutic paracentesis today Current Visit: Yes Status: Acute Code(s): K70.31 - ALCOHOLIC CIRRHOSIS OF LIVER WITH ASCITES SNOMED Code(s): 7158225111821639 (3) Alcohol abuse Current Visit: Yes Status: Acute Code(s): F10.10 - ALCOHOL ABUSE, UNCOMPLICATED SNOMED Code(s): 59505594 (4) Noncompliance with medication regimen Current Visit: Yes Status: Acute Code(s): Z91.14 - PATIENT'S OTHER NONCOMPLIANCE WITH MEDICATION REGIMEN SNOMED Code(s): 070382522 Plan: 1. Supportive care 2. Sodium restricted diet 3. Continue to monitor CBC, BMP, LFTs 4. Continue Lasix 40 mg IV 3 times daily 5. Spironolactone 100 mg daily added 6. Alcohol abstinence 7. Extensive discussion with the patient on the need for medication compliance and alcohol abstinence, overall prognosis is poor 8. Continue large volume paracentesis as needed 9. Social work consult placed, patient at risk for readmission Thank you for this consultation, we will continue to follow Dr. Allan Juarez I agree with the dictator's note, documented as a scribe by Sheela Romano.
[2020-06-11] MEDS: THIAMINE 100 MG TAB PO SCH (18:12)
[2020-06-11] MEDS: SPIRONOLACTONE 25 MG TAB PO SCH (18:12)
[2020-06-11] MEDS: ALBUMIN HUMAN 25% 50 ML in EMPTY BAG 1 BAG IVPB SCH ×4 (20:07→21:34)
[2020-06-11] MEDS: SODIUM CHLORIDE 0.9% 1,000 ML IV SCH (20:14)
[2020-06-12] MEDS: HYDROmorphone 0.5 MG/0.5 ML SYRINGE IVP PRN ×7 (00:43→22:47)
[2020-06-12] MEDS: SPIRONOLACTONE 25 MG TAB PO SCH (08:20)
[2020-06-12] MEDS: FUROSEMIDE 10 MG/ML 4 ML VIAL IV SCH ×3 (08:20→22:50)
[2020-06-12] MEDS: THIAMINE 100 MG TAB PO SCH (08:20)
[2020-06-12 10:22] LABS: Basophils # (A) 0.03 X 10*3/uL (0.00-0.10); Basophils % (A) 0.9 %; Eosinophils # (A) 0.13 X 10*3/uL (0.04-0.35); HCT 33.6 % (39.6-50.0); HGB 11.2 g/dL (13.0-17.0); Lymphocytes # (A) 1.11 X 10*3/uL (0.90-5.00); Lymphocytes % (A) 33.8 %; MCH 33.1 pg (27.0-32.0); MCHC 33.3 g/dL (32.0-37.0); MCV 99.4 fL (80.0-97.0); Monocytes # (A) 0.42 X 10*3/uL (0.20-1.00); Monocytes % (A) 12.8 %; Neutrophils # (A) 1.59 X 10*3/uL (1.80-7.70); Neutrophils % (A) 48.5 %; Platelet Count 95 X 10*3/uL (140-440); RBC 3.38 X 10*6/uL (4.40-5.60); RDW 13.3 % (11.5-14.5); WBC 3.28 X 10*3/uL (4.50-10.00)
[2020-06-12 10:29] LABS: INR 1.29 (0.90-1.11); Prothrombin Time 13.8 sec (9.9-11.9)
[2020-06-12 10:58] LABS: Reticulocyte % 2.1 % (0.10-1.80)
[2020-06-12 11:27] LABS: Ferritin 100.8 ng/mL (22.0-322.0); Folate, Serum 5.6 ng/mL
[2020-06-12 11:43] LABS: % Iron Saturation 10.89 (15.00-50.00); African American GFR (CKD) 121.4 (60.0-200.0); Albumin 2.4 g/dL (3.80-4.90); Albumin/Globulin Ratio 0.69 (1.60-3.17); Anion Gap 5.2 mmol/L (4.00-12.00); Calcium 7.7 mg/dL (8.7-10.3); Carbon Dioxide 28.8 mmol/L (21.6-31.8); Globulin 3.5 g/dL (1.6-3.3); Non-African American GFR(CKD) 104.8 (60.0-200.0); Potassium 3.2 mmol/L (3.5-5.5); Protein, Total 5.7 g/dL (6.2-8.2); Total Bilirubin 1.2 mg/dL (0.2-1.2); Total Protein 5.9 g/dL (6.2-8.2)
[2020-06-12 12:43] LABS: Immunoglobulin M 70.1 mg/dL (40.0-280.0)
--- NOTE | 2020-06-12 12:45 | P.PN ---
Subjective Progress Note Date: 06/12/20 Principal diagnosis: Ascites, decompensated liver disease This is a pleasant 65-year-old male with multiple medical comorbidities including alcohol abuse, decompensated alcoholic cirrhosis of the liver with ascites who was admitted to the hospital for increased abdominal distention. He has multiple hospitalizations for the same, he is noncompliant with medications and follow-up appointments. He previously has had multiple large-volume paracentesis in the past. He continues to drink alcohol. Today he denies any severe abdominal pain, nausea, or vomiting. Nominal distention improved, he is status post paracentesis unknown amount of fluid removed, report pending. Darryl tology has been consulted per primary medicine for pancytopenia. No acute changes through the night, no signs of GI bleed. Objective - Vital Signs Vital signs: Vital Signs Temp 98.4 F 06/12/20 07:10 Pulse 76 06/12/20 07:10 Resp 14 06/12/20 07:10 BP 98/54 06/12/20 07:10 Pulse Ox 96 06/12/20 07:10 Intake & Output 06/11/20 06/12/20 06/12/20 18:59 06:59 18:59 Other: Voiding Method Toilet Toilet Toilet Urinal Urinal Urinal # Voids 1 2 # Bowel Movements 2 - Exam General appearance: The patient is alert, oriented, appears in no acute distress. HET: Head is normocephalic and atraumatic. Conjunctiva pink. Sclera icteric. Neck: Supple without lymphadenopathy. Abdomen: Soft, tender, distended. No guarding or rigidity. Extremities: Normal skin color and turgor. Bilateral pedal edema Skin: No rashes, jaundice Neurological: No focal deficits. Alert and oriented 3. - Labs CBC & Chem 7: 06/12/20 06:00 06/12/20 06:00 Labs: Abnormal Lab Results - Last 24 Hours (Table) 06/12/20 06/12/20 Range/Units 06:00 06:00 WBC 3.28 L (4.50-10.00) X 10*3/uL RBC 3.38 L (4.40-5.60) X 10*6/uL Hgb 11.2 L (13.0-17.0) g/dL Hct 33.6 L (39.6-50.0) % MCV 99.4 H (80.0-97.0) fL MCH 33.1 H (27.0-32.0) pg Plt Count 95 L (140-440) X 10*3/uL MPV 9.0 L (9.5-12.2) fL Neutrophils # 1.59 L (1.80-7.70) X 10*3/uL PT 13.8 H (9.9-11.9) sec INR 1.29 H (0.90-1.11) Assessment and Plan (1) Decompensation of cirrhosis of liver Narrative/Plan: 65-year-old male with decompensated alcoholic cirrhosis of the liver with ascites. Patient has had multiple admissions to local area hospitals due to fluid overload with large volume paracentesis. Patient has been started on high dose diuretic therapy with Aldactone and Lasix however compliant with medications after discharge and has resumed drinking alcohol. Current Visit: Yes Status: Acute Code(s): K72.90 - HEPATIC FAILURE, UNSPECIFIED WITHOUT COMA; K74.60 - UNSPECIFIED CIRRHOSIS OF LIVER SNOMED Code(s): 500932012 (2) Ascites due to alcoholic cirrhosis Narrative/Plan: The patient is status post paracentesis of 13.1 L of fluid removal and albumin. He will likely need weekly outpatient paracentesis. Patient has been noncompliant in the past with diuretics, discussed again with patient importance of compliance with diuretics. Patient had a repeat paracentesis, report pending. Current Visit: Yes Status: Acute Code(s): K70.31 - ALCOHOLIC CIRRHOSIS OF LIVER WITH ASCITES SNOMED Code(s): 0588604101761101 (3) Alcohol abuse Current Visit: Yes Status: Acute Code(s): F10.10 - ALCOHOL ABUSE, UNCOMPLICATED SNOMED Code(s): 87316311 (4) Noncompliance with medication regimen Current Visit: Yes Status: Acute Code(s): Z91.14 - PATIENT'S OTHER NONCOMPLIANCE WITH MEDICATION REGIMEN SNOMED Code(s): 199287217 Plan: 1. Supportive care 2. Sodium restricted diet 3. Continue to monitor CBC, BMP, LFTs 4. Continue Lasix 40 mg IV 3 times daily 5. Spironolactone 100 mg daily added 6. Alcohol abstinence 7. Extensive discussion with the patient on the need for medication compliance and alcohol abstinence, overall prognosis is poor 8. Continue large volume paracentesis as needed 9. Social work consult placed, patient at risk for readmission Thank you for this consultation, she may be discharged home from a gastroenterology standpoint once otherwise medically stable. Discussed again with patient he will need close follow-up with gastroenterology as well as outpatient weekly to biweekly paracentesis. Dr. Allan Juarez I agree with the dictator's note, documented as a scribe by Sheela Romano.
[2020-06-12 15:46] LABS: Erythrocyte Sedimentation Rate 14 mm/Hr (0-20)
--- NOTE | 2020-06-12 16:04 | PN ---
PROGRESS NOTE DATE OF SERVICE: 06/11/2020 This is a 65-year-old white male, alcohol abuse, decompensated liver with severe ascites. He underwent paracentesis today. Blood pressure 90s over 50s. Pulse 70 to 76, respiratory rate 12-16, temperature 98.4. CARDIOVASCULAR: S1, S2. LUNGS: Clear. GI: Soft. Distended due to obesity and severe fluid wave. Gravid type abdomen. ASSESSMENT: 1. Ascites. 2. Alcoholic cirrhosis. 3. Decompensated cirrhosis of the liver. 4. Alcohol abuse. 5. Alcohol abstinence. Large-volume paracentesis is scheduled for tomorrow. Prognosis guarded. MMODL / IJN: [id number] /
--- NOTE | 2020-06-12 18:49 | PN ---
PROGRESS NOTE A 65-year-old white male who remains on pain control, Lasix 40 IV q.8h, Rocephin for possible infection, spironolactone 100 mg daily, thiamine [address] Juarez wants aggressive treatment done so IV Lasix is to be continued. He has pancytopenia, for which Dr. Washburn has been consulted. INR is 1.29. Sodium 134, potassium 3.2. Prognosis is extremely guarded. Wait for further recommendations from GI and long-term treatment for outpatient paracentesis which may have to be done on a weekly basis. MMODL / IJN: [id number] /
--- NOTE | 2020-06-12 19:11 | P.CONS ---
History of Present Illness - Reason for Consult Consult date: 06/11/20 Pancytopenia Requesting physician: Hector Estrada - History of Present Illness Mr. Hendrickson is a 65 year old male patient who has known history of ETOH abuse, cirrhosis of the liver, we have been assessed to further assess for pancytopenia. He has abdominal ascites and known non-adherence to medications. Review of Systems All systems: negative Constitutional: Reports as per HPI Past Medical History Past Medical History: Hypertension, Liver Disease History of Any Multi-Drug Resistant Organisms: None Reported Past Surgical History: Appendectomy Additional Past Surgical History / Comment(s): paracentesis, jaw Past Anesthesia/Blood Transfusion Reactions: No Reported Reaction Past Psychological History: No Psychological Hx Reported Smoking Status: Never smoker Past Alcohol Use History: None Reported Past Drug Use History: None Reported, Marijuana Medications and Allergies Home Medications Medication Instructions Recorded Confirmed Type No Known Home Medications 06/06/20 06/06/20 History Allergies Allergy/AdvReac Type Severity Reaction Status Date / Time No Known Allergies Allergy Verified 06/06/20 12:48 Physical Exam Vitals: Vital Signs Temp Pulse Resp BP BP Pulse Ox 06/11/20 20:40 98.4 F 77 18 97/53 99 06/11/20 17:50 88 16 112/64 97 06/11/20 17:26 81 16 108/57 96 06/11/20 17:02 76 16 109/59 96 06/11/20 16:30 78 16 116/60 97 06/11/20 16:00 76 16 113/54 96 06/11/20 14:13 98.1 F 76 20 115/63 97 06/11/20 08:00 18 06/11/20 07:03 98.2 F 80 18 102/50 96 06/11/20 01:59 98.2 F 77 18 103/64 95 Intake and Output 06/11/20 06/11/20 06/11/20 06:59 14:59 22:59 Other: Voiding Method Toilet Urinal # Voids 4 1 - Constitutional General appearance: cooperative, no acute distress - EENT Eyes: EOMI, PERRLA ENT: NA/AT, normal oropharynx - Respiratory Respiratory: bilateral: diminished - Cardiovascular Rhythm: irregularly irregular leg Peripheral Edema: bilateral: 3+ - Gastrointestinal General gastrointestinal: distended - Genitourinary Male genitourinary: scrotal edema - Integumentary Integumentary: pale - Neurologic Neurologic: CNII-XII intact - Musculoskeletal Musculoskeletal: generalized weakness - Psychiatric Psychiatric: A&O x's 3 Results CBC & Chem 7: 06/12/20 06:00 06/12/20 06:00 Labs: Abnormal Lab Results - Last 24 Hours (Table) 06/11/20 06/11/20 06/11/20 Range/Units 05:41 05:41 09:42 WBC 3.3 L (3.8-10.6) k/uL RBC 3.47 L (4.30-5.90) m/uL Hgb 11.4 L D (13.0-17.5) gm/dL Hct 34.9 L (39.0-53.0) % MCV 100.6 H (80.0-100.0) fL Plt Count 120 L 146 L (150-450) k/uL PT (9.0-12.0) sec INR (<1.2) Sodium 132 L (137-145) mmol/L Potassium 3.1 L (3.5-5.1) mmol/L Creatinine 0.60 L (0.66-1.25) mg/dL Calcium 7.4 L (8.4-10.2) mg/dL Total Bilirubin 1.6 H (0.2-1.3) mg/dL Albumin 2.2 L (3.5-5.0) g/dL 06/11/20 Range/Units 09:42 WBC (3.8-10.6) k/uL RBC (4.30-5.90) m/uL Hgb (13.0-17.5) gm/dL Hct (39.0-53.0) % MCV (80.0-100.0) fL Plt Count (150-450) k/uL PT 12.7 H (9.0-12.0) sec INR 1.2 H (<1.2) Sodium (137-145) mmol/L Potassium (3.5-5.1) mmol/L Creatinine (0.66-1.25) mg/dL Calcium (8.4-10.2) mg/dL Total Bilirubin (0.2-1.3) mg/dL Albumin (3.5-5.0) g/dL Assessment and Plan (1) Pancytopenia Current Visit: Yes Status: Acute Code(s): D61.818 - OTHER PANCYTOPENIA SNOMED Code(s): 726199690 (2) Alcohol abuse Current Visit: Yes Status: Acute Code(s): F10.10 - ALCOHOL ABUSE, UNCOMPLICATED SNOMED Code(s): 86813710 (3) Ascites due to alcoholic cirrhosis Current Visit: Yes Status: Acute Code(s): K70.31 - ALCOHOLIC CIRRHOSIS OF LIVER WITH ASCITES SNOMED Code(s): 8746506878161229 Plan: Pancytopenia likely due to liver disease and ETOH Additional pancytopenia work-up ordered At this time his bloodwork is within safe ranges and no intervention is needed Further recs to follow Physician Attest: I have completed the full history and physical and agree with above dictation, dictated as a ascribe.
[2020-06-12] MEDS: SODIUM CHLORIDE 0.9% 1,000 ML IV SCH (19:49)
[2020-06-13] MEDS: HYDROmorphone 0.5 MG/0.5 ML SYRINGE IVP PRN ×5 (05:43→23:35)
[2020-06-13] MEDS: THIAMINE 100 MG TAB PO SCH (07:51)
[2020-06-13] MEDS: SPIRONOLACTONE 25 MG TAB PO SCH (07:51)
[2020-06-13] MEDS: FUROSEMIDE 10 MG/ML 4 ML VIAL IV SCH (07:51)
--- NOTE | 2020-06-13 08:50 | US ---
EXAMINATION TYPE: US paracentesis abd w/image DATE OF EXAM: 06/11/2020 COMPARISON: none HISTORY: Ascites. PROCEDURE: Maximal barrier technique was utilized. The skin overlying a suitable pocket of fluid was localized with ultrasound and the overlying skin was prepped and draped. Ultrasound was utilized with sterile technique. Lidocaine was used for local anesthesia and a skin jose m made with a scalpel. Catheter was advanced under direct ultrasound guidance into a suitable pocket of fluid and approximately 12.2 lite rs of serous fluid were removed. Catheter was withdrawn and hemostasis achieved. There is no immedi ate complication; the patient is discharged in stable condition. IMPRESSION: STATUS POST ULTRASOUND GUIDED PARACENTESIS FOR PALLIATION OF ASCITES. THIS PROCEDURE WA S PERFORMED BY THE UNDERSIGNED.
[2020-06-13 10:05] LABS: Albumin 2.3 g/dL (3.80-4.90); Albumin/Globulin Ratio 0.68 (1.60-3.17); Anion Gap 5.1 mmol/L (4.00-12.00); BUN/Creat Ratio 22.86 Ratio (12.00-20.00); Calcium 7.7 mg/dL (8.7-10.3); Carbon Dioxide 28.9 mmol/L (21.6-31.8); Globulin 3.4 g/dL (1.6-3.3); Non-African American GFR(CKD) 98.3 (60.0-200.0); Potassium 3.4 mmol/L (3.5-5.5); Total Bilirubin 0.9 mg/dL (0.2-1.2); Total Protein 5.7 g/dL (6.2-8.2)
[2020-06-13 12:44] LABS: Basophils # (A) 0.04 X 10*3/uL (0.00-0.10); Basophils % (A) 1.2 %; Eosinophils # (A) 0.15 X 10*3/uL (0.04-0.35); Eosinophils % (A) 4.6 %; HCT 34.5 % (39.6-50.0); HGB 11.5 g/dL (13.0-17.0); Lymphocytes # (A) 1.14 X 10*3/uL (0.90-5.00); Lymphocytes % (A) 34.7 %; MCHC 33.3 g/dL (32.0-37.0); MCV 99.1 fL (80.0-97.0); Mean Platelet Volume 9.6 fL (9.5-12.2); Monocytes # (A) 0.49 X 10*3/uL (0.20-1.00); Monocytes % (A) 14.9 %; Neutrophils # (A) 1.46 X 10*3/uL (1.80-7.70); Neutrophils % (A) 44.3 %; Platelet Count 85 X 10*3/uL (140-440); RBC 3.48 X 10*6/uL (4.40-5.60); RDW 13.4 % (11.5-14.5); WBC 3.29 X 10*3/uL (4.50-10.00)
[2020-06-13] MEDS: SODIUM CHLORIDE 0.9% 1,000 ML IV SCH (12:51)
--- NOTE | 2020-06-13 13:15 | P.PN ---
Subjective Progress Note Date: 06/13/20 Iron deficiency note, rec GI further evaluation, awaiting for rest of anemia/pancytopenia work-up Objective - Vital Signs Vital signs: Vital Signs Temp 97.9 F 06/13/20 08:00 Pulse 81 06/13/20 08:00 Resp 20 06/13/20 08:00 BP 108/56 06/13/20 08:00 Pulse Ox 95 06/13/20 08:00 Intake & Output 06/12/20 06/13/20 06/13/20 18:59 06:59 18:59 Intake Total 400 400 Balance 400 400 Intake: Oral 400 400 Other: Voiding Method Toilet Toilet Toilet Urinal Urinal Urinal # Voids 3 2 # Bowel Movements 1 1 - Exam - Constitutional General appearance: cooperative, no acute distress - EENT Eyes: EOMI, PERRLA ENT: NA/AT, normal oropharynx - Respiratory Respiratory: bilateral: diminished - Cardiovascular Rhythm: irregularly irregular leg Peripheral Edema: bilateral: 3+ - Gastrointestinal General gastrointestinal: distended - Genitourinary Male genitourinary: scrotal edema - Integumentary Integumentary: pale - Neurologic Neurologic: CNII-XII intact - Musculoskeletal Musculoskeletal: generalized weakness - Psychiatric Psychiatric: A&O x's 3 - Labs CBC & Chem 7: 06/13/20 05:10 06/13/20 05:10 Labs: Abnormal Lab Results - Last 24 Hours (Table) 06/08/20 06/13/20 06/13/20 Range/Units 11:06 05:10 05:10 WBC 3.29 L (4.50-10.00) X 10*3/uL RBC 3.48 L (4.40-5.60) X 10*6/uL Hgb 11.5 L (13.0-17.0) g/dL Hct 34.5 L (39.6-50.0) % MCV 99.1 H (80.0-97.0) fL MCH 33.0 H (27.0-32.0) pg Plt Count 85 L (140-440) X 10*3/uL Plt Count Comment DECREASED A Neutrophils # 1.46 L (1.80-7.70) X 10*3/uL Sodium 134 L (135-145) mmol/L Potassium 3.4 L (3.5-5.5) mmol/L BUN/Creatinine Ratio 22.86 H (12.00-20.00) Ratio Calcium 7.7 L (8.7-10.3) mg/dL AST 51 H (14-35) U/L Total Protein 5.7 L (6.2-8.2) g/dL Albumin 2.30 L (3.80-4.90) g/dL Globulin 3.4 H (1.6-3.3) g/dL Albumin/Globulin Ratio 0.68 L (1.60-3.17) g/dL Hepatitis C RNA Quant 3800 H (0-0) IU/mL Assessment and Plan (1) Pancytopenia Current Visit: Yes Status: Acute Code(s): D61.818 - OTHER PANCYTOPENIA SNOMED Code(s): 009643218 (2) Alcohol abuse Current Visit: Yes Status: Acute Code(s): F10.10 - ALCOHOL ABUSE, UNCOMPLICATED SNOMED Code(s): 58798585 (3) Ascites due to alcoholic cirrhosis Current Visit: Yes Status: Acute Code(s): K70.31 - ALCOHOLIC CIRRHOSIS OF LIVER WITH ASCITES SNOMED Code(s): 2583071226022381 Plan: Pancytopenia likely due to liver disease and ETOH Additional pancytopenia work-up ordered At this time his bloodwork is within safe ranges and no intervention is needed Still awaiting full work-up, iron studies are decreased this could be nutritional versus GI blood loss, recommend further evaluation by GI
[2020-06-13 13:45] LABS: Albumin 2.28 g/dL (3.80-4.90); Gamma Globulin 1.89 g/dL (0.70-1.50)
--- NOTE | 2020-06-13 15:49 | P.PN ---
Subjective Progress Note Date: 06/13/20 Principal diagnosis: Ascites, decompensated liver disease This is a pleasant 65-year-old male with multiple medical comorbidities including alcohol abuse, decompensated alcoholic cirrhosis of the liver with ascites who was admitted to the hospital for increased abdominal distention. He has multiple hospitalizations for the same, he is noncompliant with medications and follow-up appointments. He previously has had multiple large-volume paracentesis in the past. HEENT and evaluated today lying in bed. He is without any acute changes through the night. He is status post 2 large-volume paracentesis this admission. He denies any abdominal pain, nausea, or vomiting. Abdominal distention improved since his paracentesis. Objective - Vital Signs Vital signs: Vital Signs Temp 98.6 F 06/13/20 14:00 Pulse 74 06/13/20 14:00 Resp 16 06/13/20 14:00 BP 103/47 06/13/20 14:00 Pulse Ox 96 06/13/20 14:00 Intake & Output 06/12/20 06/13/20 06/13/20 18:59 06:59 18:59 Intake Total 400 1080 Balance 400 1080 Intake: Oral 400 1080 Other: Voiding Method Toilet Toilet Toilet Urinal Urinal Urinal # Voids 3 2 # Bowel Movements 1 1 - Exam General appearance: The patient is alert, oriented, appears in no acute distress. HET: Head is normocephalic and atraumatic. Conjunctiva pink. Sclera icteric. Neck: Supple without lymphadenopathy. Abdomen: Soft, tnontender, distended, however improved. No guarding or rigidity. Extremities: Normal skin color and turgor. Bilateral pedal edema Skin: No rashes, jaundice Neurological: No focal deficits. Alert and oriented 3. - Labs CBC & Chem 7: 06/13/20 05:10 06/13/20 05:10 Labs: Abnormal Lab Results - Last 24 Hours (Table) 06/08/20 06/12/20 06/13/20 Range/Units 11:06 06:00 05:10 WBC 3.29 L (4.50-10.00) X 10*3/uL RBC 3.48 L (4.40-5.60) X 10*6/uL Hgb 11.5 L (13.0-17.0) g/dL Hct 34.5 L (39.6-50.0) % MCV 99.1 H (80.0-97.0) fL MCH 33.0 H (27.0-32.0) pg Plt Count 85 L (140-440) X 10*3/uL Plt Count Comment DECREASED A Neutrophils # 1.46 L (1.80-7.70) X 10*3/uL Sodium (135-145) mmol/L Potassium (3.5-5.5) mmol/L BUN/Creatinine Ratio (12.00-20.00) Ratio Calcium (8.7-10.3) mg/dL AST (14-35) U/L Total Protein (6.2-8.2) g/dL Albumin (3.80-4.90) g/dL Albumin (PEP) 2.28 L (3.80-4.90) g/dL Globulin (1.6-3.3) g/dL Albumin/Globulin Ratio (1.60-3.17) g/dL Llubo-0-Sfpigencv 0.33 L (0.60-1.00) g/dL Gamma Globulins 1.89 H (0.70-1.50) g/dL Hepatitis C RNA Quant 3800 H (0-0) IU/mL 06/13/20 Range/Units 05:10 WBC (4.50-10.00) X 10*3/uL RBC (4.40-5.60) X 10*6/uL Hgb (13.0-17.0) g/dL Hct (39.6-50.0) % MCV (80.0-97.0) fL MCH (27.0-32.0) pg Plt Count (140-440) X 10*3/uL Plt Count Comment Neutrophils # (1.80-7.70) X 10*3/uL Sodium 134 L (135-145) mmol/L Potassium 3.4 L (3.5-5.5) mmol/L BUN/Creatinine Ratio 22.86 H (12.00-20.00) Ratio Calcium 7.7 L (8.7-10.3) mg/dL AST 51 H (14-35) U/L Total Protein 5.7 L (6.2-8.2) g/dL Albumin 2.30 L (3.80-4.90) g/dL Albumin (PEP) (3.80-4.90) g/dL Globulin 3.4 H (1.6-3.3) g/dL Albumin/Globulin Ratio 0.68 L (1.60-3.17) g/dL Zuwtv-7-Vhjuwgbty (0.60-1.00) g/dL Gamma Globulins (0.70-1.50) g/dL Hepatitis C RNA Quant (0-0) IU/mL Assessment and Plan (1) Decompensation of cirrhosis of liver Narrative/Plan: 65-year-old male with decompensated alcoholic cirrhosis of the liver with ascites. Patient has had multiple admissions to local area hospitals due to fluid overload with large volume paracentesis. Patient has been started on high dose diuretic therapy with Aldactone and Lasix however compliant with medications after discharge and has resumed drinking alcohol. Current Visit: Yes Status: Acute Code(s): K72.90 - HEPATIC FAILURE, UNSPECIFIED WITHOUT COMA; K74.60 - UNSPECIFIED CIRRHOSIS OF LIVER SNOMED Code(s): 806390682 (2) Ascites due to alcoholic cirrhosis Narrative/Plan: The patient is status post paracentesis of 13.1 L of fluid removal and albumin. He will likely need weekly outpatient paracentesis. Patient has been noncompliant in the past with diuretics, discussed again with patient importance of compliance with diuretics. Patient had a repeat paracentesis, with 12 L of fluid removed Current Visit: Yes Status: Acute Code(s): K70.31 - ALCOHOLIC CIRRHOSIS OF LIVER WITH ASCITES SNOMED Code(s): 0381958482315612 (3) Alcohol abuse Current Visit: Yes Status: Acute Code(s): F10.10 - ALCOHOL ABUSE, UNCOMPLICATED SNOMED Code(s): 58824856 (4) Noncompliance with medication regimen Current Visit: Yes Status: Acute Code(s): Z91.14 - PATIENT'S OTHER NONCOMPLIANCE WITH MEDICATION REGIMEN SNOMED Code(s): 114233709 Plan: 1. Supportive care 2. Sodium restricted diet 3. Continue to monitor CBC, BMP, LFTs 4. Decrease Lasix to 40 mg twice a day, patient to go home on Lasix 40 mg by mouth twice a day 5. Increase Spironolactone 100 mg twice a day 6. Alcohol abstinence 7. Extensive discussion with the patient on the need for medication compliance and alcohol abstinence, overall prognosis is poor 8. Continue large volume paracentesis as needed 9. Social work consult placed, patient at risk for readmission Thank you for this consultation, she may be discharged home from a gastroenterology standpoint once otherwise medically stable. Discussed again with patient he will need close follow-up with gastroenterology as well as outpatient weekly to biweekly paracentesis. Dr. Allan Juarez I agree with the dictator's note, documented as a scribe by Sheela Romano.
[2020-06-13] MEDS ORDERED: FUROSEMIDE 10 MG/ML 4 ML VIAL IV SCH (21:00)
[2020-06-14] MEDS: HYDROmorphone 0.5 MG/0.5 ML SYRINGE IVP PRN ×7 (02:07→23:03)
[2020-06-14] MEDS: POTASSIUM CHLORIDE ER 20 MEQ TAB.ER PO SCH (08:25)
[2020-06-14] MEDS: SPIRONOLACTONE 25 MG TAB PO SCH (08:25)
[2020-06-14] MEDS: THIAMINE 100 MG TAB PO SCH (08:25)
[2020-06-14] MEDS: FUROSEMIDE 40 MG TAB PO SCH ×2 (08:25→16:27)
[2020-06-14 09:19] LABS: Basophils # (A) 0.04 X 10*3/uL (0.00-0.10); Eosinophils # (A) 0.23 X 10*3/uL (0.04-0.35); Eosinophils % (A) 5.7 %; HCT 35.3 % (39.6-50.0); HGB 11.7 g/dL (13.0-17.0); Lymphocytes # (A) 1.39 X 10*3/uL (0.90-5.00); Lymphocytes % (A) 34.5 %; MCHC 33.1 g/dL (32.0-37.0); MCV 99.4 fL (80.0-97.0); Mean Platelet Volume 9.4 fL (9.5-12.2); Monocytes # (A) 0.49 X 10*3/uL (0.20-1.00); Monocytes % (A) 12.2 %; Neutrophils # (A) 1.87 X 10*3/uL (1.80-7.70); Neutrophils % (A) 46.4 %; Platelet Count 106 X 10*3/uL (140-440); RBC 3.55 X 10*6/uL (4.40-5.60); RDW 13.1 % (11.5-14.5); WBC 4.03 X 10*3/uL (4.50-10.00)
[2020-06-14 11:33] LABS: Albumin 2.4 g/dL (3.80-4.90); Albumin/Globulin Ratio 0.67 (1.60-3.17); Anion Gap 6.9 mmol/L (4.00-12.00); BUN/Creat Ratio 24.29 Ratio (12.00-20.00); Calcium 7.9 mg/dL (8.7-10.3); Carbon Dioxide 27.1 mmol/L (21.6-31.8); Globulin 3.6 g/dL (1.6-3.3); Non-African American GFR(CKD) 98.3 (60.0-200.0); Potassium 3.7 mmol/L (3.5-5.5); Total Bilirubin 1.1 mg/dL (0.3-1.2)
[2020-06-14 14:07] VITALS: BMI 38.3
--- NOTE | 2020-06-14 15:55 | P.GSCN ---
History of Present Illness Consult date: 06/14/20 History of present illness: CHIEF COMPLAINT: Abdominal distention HISTORY OF PRESENT ILLNESS: This is a 65-year-old male with a known history of alcohol abuse, hepatitis C, liver cirrhosis with abdominal ascites that requires frequent paracentesis. Patient admitted to the hospital for abdominal distention. Patient has had 2 large volume paracentesis during this admission. Surgical service has been consulted in regards to patient's umbilical hernia. Patient denies any abdominal pain. Denies any pain at the hernia site. Denies any nausea or vomiting. Reports having regular bowel movements. He is afebrile. Patient seen and examined with Dr. haque PAST MEDICAL HISTORY: See list. PAST SURGICAL HISTORY: See list. MEDICATIONS: See list. ALLERGIES: See list. SOCIAL HISTORY: No illicit drug use. REVIEW OF SYSTEMS: CONSTITUTIONAL: Denies fever or chills. HEENT: Denies blurred vision, vision changes, or eye pain. Denies hemoptysis CARDIOVASCULAR: Denies chest pain or pressure. RESPIRATORY: No shortness of breath. GASTROINTESTINAL: See HPI for pertinent findings HEMATOLOGIC: Denies bleeding disorders. GENITOURINARY: Denies any blood in urine or increased urinary frequency. SKIN: Denies pruitis. Denies rash. PHYSICAL EXAM: VITAL SIGNS: Reviewed GENERAL: Well-developed in no acute distress. HEENT: No sclera icterus. Extraocular movements grossly intact. Moist buccal mucosa. Head is atraumatic, normocephalic. No nasal drainage. ABDOMEN: Soft. Distended umbilical hernia present. Nontender. NEUROLOGIC: Alert and oriented. Cranial nerves II through XII grossly intact. LABORATORY DATA: WBC 4.03 he will 11.7 platelets 106 IMAGING: ASSESSMENT: 1. Umbilical hernia 2. Liver cirrhosis with abdominal ascites PLAN: -No surgical intervention planned. Patient would be high risk for surgery due to his liver cirrhosis and abdominal ascites -Continue supportive care Thank you for this consultation Physician Master Lay Out Specialist note has been reviewed by physician. Signing provider agrees with the documented findings, assessment, and plan of care. Past Medical History Past Medical History: Hypertension, Liver Disease History of Any Multi-Drug Resistant Organisms: None Reported Past Surgical History: Appendectomy Additional Past Surgical History / Comment(s): paracentesis, jaw Past Anesthesia/Blood Transfusion Reactions: No Reported Reaction Past Psychological History: No Psychological Hx Reported Smoking Status: Never smoker Past Alcohol Use History: None Reported Past Drug Use History: None Reported, Marijuana Medications and Allergies Home Medications Medication Instructions Recorded Confirmed Type Furosemide [Lasix] 40 mg PO BID@0900,1600 90 Days #90 06/13/20 Rx tab Potassium Chloride ER [K-Dur 20] 20 meq PO DAILY 90 Days #90 06/13/20 Rx tab.er.prt Spironolactone [Aldactone] 100 mg PO DAILY 90 Days #90 tab 06/13/20 Rx Thiamine [Vitamin B-1] 100 mg PO DAILY 90 Days #90 tab 06/13/20 Rx Allergies Allergy/AdvReac Type Severity Reaction Status Date / Time No Known Allergies Allergy Verified 06/06/20 12:48 Surgical - Exam Vital Signs Temp Pulse Resp BP Pulse Ox 98.2 F 97 18 147/86 100 06/06/20 10:30 06/06/20 10:30 06/06/20 10:30 06/06/20 10:30 06/06/20 10:30 Results - Labs 06/14/20 06:04 06/14/20 06:04 Abnormal Lab Results - Last 24 Hours (Table) 06/13/20 06/14/20 06/14/20 Range/Units 16:06 06:04 06:04 WBC 4.03 L (4.50-10.00) X 10*3/uL RBC 3.55 L (4.40-5.60) X 10*6/uL Hgb 11.7 L (13.0-17.0) g/dL Hct 35.3 L (39.6-50.0) % MCV 99.4 H (80.0-97.0) fL MCH 33.0 H (27.0-32.0) pg Plt Count 106 L (140-440) X 10*3/uL MPV 9.4 L (9.5-12.2) fL BUN/Creatinine Ratio 24.29 H (12.00-20.00) Ratio Glucose 121 H (70-110) mg/dL Calcium 7.9 L (8.7-10.3) mg/dL AST 56 H (14-35) U/L Total Protein 6.0 L (6.2-8.2) g/dL Albumin 2.40 L (3.80-4.90) g/dL Globulin 3.6 H (1.6-3.3) g/dL Albumin/Globulin Ratio 0.67 L (1.60-3.17) g/dL Vitamin B12 984.0 H (200.0-944.0) pg/mL Diabetes panel 06/14/20 Range/Units 06:04 Sodium 136 (135-145) mmol/L Potassium 3.7 (3.5-5.5) mmol/L Chloride 102 (96-109) mmol/L Carbon Dioxide 27.1 (21.6-31.8) mmol/L BUN 17.0 (9.0-27.0) mg/dL Creatinine 0.7 (0.6-1.5) mg/dL Glucose 121 H (70-110) mg/dL Calcium 7.9 L (8.7-10.3) mg/dL AST 56 H (14-35) U/L ALT 20 (10-49) U/L Alkaline Phosphatase 91 (41-126) U/L Total Protein 6.0 L (6.2-8.2) g/dL Albumin 2.40 L (3.80-4.90) g/dL Calcium panel 06/14/20 Range/Units 06:04 Calcium 7.9 L (8.7-10.3) mg/dL Albumin 2.40 L (3.80-4.90) g/dL Pituitary panel 06/14/20 Range/Units 06:04 Sodium 136 (135-145) mmol/L Potassium 3.7 (3.5-5.5) mmol/L Chloride 102 (96-109) mmol/L Carbon Dioxide 27.1 (21.6-31.8) mmol/L BUN 17.0 (9.0-27.0) mg/dL Creatinine 0.7 (0.6-1.5) mg/dL Glucose 121 H (70-110) mg/dL Calcium 7.9 L (8.7-10.3) mg/dL Adrenal panel 06/14/20 Range/Units 06:04 Sodium 136 (135-145) mmol/L Potassium 3.7 (3.5-5.5) mmol/L Chloride 102 (96-109) mmol/L Carbon Dioxide 27.1 (21.6-31.8) mmol/L BUN 17.0 (9.0-27.0) mg/dL Creatinine 0.7 (0.6-1.5) mg/dL Glucose 121 H (70-110) mg/dL Calcium 7.9 L (8.7-10.3) mg/dL Total Bilirubin 1.1 (0.3-1.2) mg/dL AST 56 H (14-35) U/L ALT 20 (10-49) U/L Alkaline Phosphatase 91 (41-126) U/L Total Protein 6.0 L (6.2-8.2) g/dL Albumin 2.40 L (3.80-4.90) g/dL
--- NOTE | 2020-06-14 15:59 | P.PN ---
Subjective Progress Note Date: 06/14/20 Principal diagnosis: Ascites, decompensated liver disease This is a pleasant 65-year-old male with multiple medical comorbidities including alcohol abuse, decompensated alcoholic cirrhosis of the liver with ascites who was admitted to the hospital for increased abdominal distention. He has multiple hospitalizations for the same, he is noncompliant with medications and follow-up appointments. He previously has had multiple large-volume paracentesis in the past. He is seen and evaluated today lying in bed. He is without any acute changes through the night. He is status post 2 large-volume paracentesis this admission. He denies any abdominal pain, nausea, or vomiting. Denies any coffee-ground emesis, hematemesis, dark or maroon-colored stools. Abdominal distention improved since his paracentesis. Globin remained stable at 11.7, liver enzymes have been trending down. Objective - Vital Signs Vital signs: Vital Signs Temp 98.2 F 06/14/20 07:20 Pulse 75 06/14/20 07:20 Resp 20 06/14/20 08:00 BP 122/63 06/14/20 07:20 Pulse Ox 95 06/14/20 07:20 Intake & Output 06/13/20 06/14/20 06/14/20 18:59 06:59 18:59 Intake Total 1280 460 200 Balance 1280 460 200 Weight 124.738 kg Intake: Oral 1280 460 200 Other: Voiding Method Toilet Toilet Toilet Urinal Urinal Urinal # Voids 2 3 - Exam General appearance: The patient is alert, oriented, appears in no acute distress. HET: Head is normocephalic and atraumatic. Conjunctiva pink. Sclera icteric. Neck: Supple without lymphadenopathy. Abdomen: Soft, tnontender, distended, however improved, umbilical hernia, reducible. No guarding or rigidity. Extremities: Normal skin color and turgor. Bilateral pedal edema Skin: No rashes, jaundice Neurological: No focal deficits. Alert and oriented 3. - Labs CBC & Chem 7: 06/14/20 06:04 06/14/20 06:04 Labs: Abnormal Lab Results - Last 24 Hours (Table) 06/13/20 06/14/20 06/14/20 Range/Units 16:06 06:04 06:04 WBC 4.03 L (4.50-10.00) X 10*3/uL RBC 3.55 L (4.40-5.60) X 10*6/uL Hgb 11.7 L (13.0-17.0) g/dL Hct 35.3 L (39.6-50.0) % MCV 99.4 H (80.0-97.0) fL MCH 33.0 H (27.0-32.0) pg Plt Count 106 L (140-440) X 10*3/uL MPV 9.4 L (9.5-12.2) fL BUN/Creatinine Ratio 24.29 H (12.00-20.00) Ratio Glucose 121 H (70-110) mg/dL Calcium 7.9 L (8.7-10.3) mg/dL AST 56 H (14-35) U/L Total Protein 6.0 L (6.2-8.2) g/dL Albumin 2.40 L (3.80-4.90) g/dL Globulin 3.6 H (1.6-3.3) g/dL Albumin/Globulin Ratio 0.67 L (1.60-3.17) g/dL Vitamin B12 984.0 H (200.0-944.0) pg/mL Assessment and Plan (1) Decompensation of cirrhosis of liver Narrative/Plan: 65-year-old male with decompensated alcoholic cirrhosis of the liver with ascites. Patient has had multiple admissions to local area hospitals due to fluid overload with large volume paracentesis. Patient has been started on high dose diuretic therapy with Aldactone and Lasix however compliant with medications after discharge and has resumed drinking alcohol. Current Visit: Yes Status: Acute Code(s): K72.90 - HEPATIC FAILURE, UNSPECIFIED WITHOUT COMA; K74.60 - UNSPECIFIED CIRRHOSIS OF LIVER SNOMED Code(s): 741968836 (2) Ascites due to alcoholic cirrhosis Narrative/Plan: The patient is status post paracentesis of 13.1 L of fluid removal and albumin. He will likely need weekly outpatient paracentesis. Patient has been noncom pliant in the past with diuretics, discussed again with patient importance of compliance with diuretics. Patient had a repeat paracentesis, with 12 L of fluid removed Current Visit: Yes Status: Acute Code(s): K70.31 - ALCOHOLIC CIRRHOSIS OF LIVER WITH ASCITES SNOMED Code(s): 7253590054329565 (3) Alcohol abuse Current Visit: Yes Status: Acute Code(s): F10.10 - ALCOHOL ABUSE, UNCOMPLICATED SNOMED Code(s): 48924260 (4) Noncompliance with medication regimen Current Visit: Yes Status: Acute Code(s): Z91.14 - PATIENT'S OTHER NONCOMPLIANCE WITH MEDICATION REGIMEN SNOMED Code(s): 564194756 Plan: 1. Supportive care 2. Sodium restricted diet 3. Continue to monitor CBC, BMP, LFTs 4. Continue Lasix to 40 mg twice a day, patient to go home on Lasix 40 mg by mouth twice a day 5. Continue Spironolactone 100 mg twice a day 6. Alcohol abstinence 7. Extensive discussion with the patient on the need for medication compliance and alcohol abstinence, overall prognosis is poor 8. Continue large volume paracentesis as needed 9. No plans for endoscopic evaluation during this admission 10. Social work consult placed, patient at risk for readmission Thank you for this consultation, he may be discharged home from a gastroenterology standpoint once otherwise medically stable. Discussed again with patient he will need close follow-up with gastroenterology as well as outpatient weekly to biweekly paracentesis. Dr. Allan Juarez I agree with the dictator's note, documented as a scribe by Sheela Romano.
--- NOTE | 2020-06-14 19:25 | P.PN ---
Subjective Progress Note Date: 06/14/20 Discussed with kelsi CARIAS monitor outpatient for possible GI evaluation, no immediate risk felt inpatient Objective - Vital Signs Vital signs: Vital Signs Temp 98.4 F 06/14/20 14:00 Pulse 81 06/14/20 14:00 Resp 16 06/14/20 14:00 BP 113/54 06/14/20 14:00 Pulse Ox 98 06/14/20 14:00 Intake & Output 06/14/20 06/14/20 06/15/20 06:59 18:59 06:59 Intake Total 460 450 Balance 460 450 Weight 124.738 kg Intake: IV 50 cefTRIAXone 1 gm In 50 Sodium Chloride 0.9% 50 ml @ 100 mls/hr IVPB Q24HR [facility] Rx#:[id number] Oral 460 400 Other: Voiding Method Toilet Toilet Urinal # Voids 3 3 - Exam - Constitutional General appearance: cooperative, no acute distress - EENT Eyes: EOMI, PERRLA ENT: NA/AT, normal oropharynx - Respiratory Respiratory: bilateral: diminished - Cardiovascular Rhythm: irregularly irregular leg Peripheral Edema: bilateral: 3+ - Gastrointestinal General gastrointestinal: distended - Genitourinary Male genitourinary: scrotal edema - Integumentary Integumentary: pale - Neurologic Neurologic: CNII-XII intact - Musculoskeletal Musculoskeletal: generalized weakness - Psychiatric Psychiatric: A&O x's 3 - Labs CBC & Chem 7: 06/14/20 06:04 06/14/20 06:04 Labs: Abnormal Lab Results - Last 24 Hours (Table) 06/13/20 06/14/20 06/14/20 Range/Units 16:06 06:04 06:04 WBC 4.03 L (4.50-10.00) X 10*3/uL RBC 3.55 L (4.40-5.60) X 10*6/uL Hgb 11.7 L (13.0-17.0) g/dL Hct 35.3 L (39.6-50.0) % MCV 99.4 H (80.0-97.0) fL MCH 33.0 H (27.0-32.0) pg Plt Count 106 L (140-440) X 10*3/uL MPV 9.4 L (9.5-12.2) fL BUN/Creatinine Ratio 24.29 H (12.00-20.00) Ratio Glucose 121 H (70-110) mg/dL Calcium 7.9 L (8.7-10.3) mg/dL AST 56 H (14-35) U/L Total Protein 6.0 L (6.2-8.2) g/dL Albumin 2.40 L (3.80-4.90) g/dL Globulin 3.6 H (1.6-3.3) g/dL Albumin/Globulin Ratio 0.67 L (1.60-3.17) g/dL Vitamin B12 984.0 H (200.0-944.0) pg/mL Assessment and Plan (1) Pancytopenia Current Visit: Yes Status: Acute Code(s): D61.818 - OTHER PANCYTOPENIA SNOMED Code(s): 934710323 (2) Alcohol abuse Current Visit: Yes Status: Acute Code(s): F10.10 - ALCOHOL ABUSE, UNCOMPLICATED SNOMED Code(s): 72006002 (3) Ascites due to alcoholic cirrhosis Current Visit: Yes Status: Acute Code(s): K70.31 - ALCOHOLIC CIRRHOSIS OF LIVER WITH ASCITES SNOMED Code(s): 7258897575308880 Plan: Pancytopenia likely due to liver disease and ETOH Additional pancytopenia work-up ordered At this time his bloodwork is within safe ranges and no intervention is needed iron studies are decreased this could be nutritional versus GI blood loss, Discussed with GI and will follow outpatient for further evaluation
[2020-06-14] MEDS: SODIUM CHLORIDE 0.9% 1,000 ML IV SCH (23:06)
[2020-06-15] MEDS: HYDROmorphone 0.5 MG/0.5 ML SYRINGE IVP PRN ×3 (01:51→09:11)
[2020-06-15 07:35] VITALS: BP 112/67; PULSE 73; RESP 16; TEMP 98.2
[2020-06-15] MEDS: POTASSIUM CHLORIDE ER 20 MEQ TAB.ER PO SCH (08:02)
[2020-06-15] MEDS: THIAMINE 100 MG TAB PO SCH (08:02)
[2020-06-15] MEDS: FUROSEMIDE 40 MG TAB PO SCH (08:03)
[2020-06-15] MEDS: SPIRONOLACTONE 25 MG TAB PO SCH (08:03)
--- NOTE | 2020-06-15 09:01 | P.PN ---
Subjective Progress Note Date: 06/15/20 Principal diagnosis: Ascites, decompensated liver disease This is a pleasant 65-year-old male with multiple medical comorbidities including alcohol abuse, decompensated alcoholic cirrhosis of the liver with ascites who was admitted to the hospital for increased abdominal distention. He has multiple hospitalizations for the same, he is noncompliant with medications and follow-up appointments. He previously has had multiple large-volume paracentesis in the past. He is seen and evaluated today lying in bed. He is without any acute changes through the night. He is status post 2 large-volume paracentesis this admission. He denies any abdominal pain, nausea, or vomiting. Denies any coffee-ground emesis, hematemesis, dark or maroon-colored stools. As for discharge home today with his son. Discuss with patient the importance of medication compliance, follow-up in office next week to schedule outpatient paracentesis. Patient states he does not know if he wants to go through all that. I discussed with him he can discuss further treatment with GI office at follow-up appointment. Objective - Vital Signs Vital signs: Vital Signs Temp 98.2 F 06/15/20 07:35 Pulse 73 06/15/20 07:35 Resp 16 06/15/20 07:35 BP 112/67 06/15/20 07:35 Pulse Ox 97 06/15/20 07:35 Intake & Output 06/14/20 06/15/20 06/15/20 18:59 06:59 18:59 Intake Total 450 240 Balance 450 240 Weight 124.738 kg Intake: IV 50 cefTRIAXone 1 gm In 50 Sodium Chloride 0.9% 50 ml @ 100 mls/hr IVPB Q24HR [facility] Rx#:[id number] Oral 400 240 Other: Voiding Method Toilet Toilet # Voids 3 3 - Exam General appearance: The patient is alert, oriented, appears in no acute distress. HET: Head is normocephalic and atraumatic. Conjunctiva pink. Sclera anicteric. Neck: Supple without lymphadenopathy. Abdomen: Soft, tnontender, distended, umbilical hernia, reducible. No guarding or rigidity. Extremities: Normal skin color and turgor. Bilateral pedal edema Skin: No rashes, mild jaundice Neurological: No focal deficits. Alert and oriented 3. - Labs CBC & Chem 7: 06/14/20 06:04 06/14/20 06:04 Labs: Abnormal Lab Results - Last 24 Hours (Table) 06/13/20 06/14/20 06/14/20 Range/Units 16:06 06:04 06:04 WBC 4.03 L (4.50-10.00) X 10*3/uL RBC 3.55 L (4.40-5.60) X 10*6/uL Hgb 11.7 L (13.0-17.0) g/dL Hct 35.3 L (39.6-50.0) % MCV 99.4 H (80.0-97.0) fL MCH 33.0 H (27.0-32.0) pg Plt Count 106 L (140-440) X 10*3/uL MPV 9.4 L (9.5-12.2) fL BUN/Creatinine Ratio 24.29 H (12.00-20.00) Ratio Glucose 121 H (70-110) mg/dL Calcium 7.9 L (8.7-10.3) mg/dL AST 56 H (14-35) U/L Total Protein 6.0 L (6.2-8.2) g/dL Albumin 2.40 L (3.80-4.90) g/dL Globulin 3.6 H (1.6-3.3) g/dL Albumin/Globulin Ratio 0.67 L (1.60-3.17) g/dL Vitamin B12 984.0 H (200.0-944.0) pg/mL Assessment and Plan (1) Decompensation of cirrhosis of liver Narrative/Plan: 65-year-old male with decompensated alcoholic cirrhosis of the liver with ascites. Patient has had multiple admissions to local area hospitals due to fluid overload with large volume paracentesis. Patient has been started on high dose diuretic therapy with Aldactone and Lasix however compliant with medications after discharge and has resumed drinking alcohol. Current Visit: Yes Status: Acute Code(s): K72.90 - HEPATIC FAILURE, UNSPECIFIED WITHOUT COMA; K74.60 - UNSPECIFIED CIRRHOSIS OF LIVER SNOMED Code(s): 840696192 (2) Ascites due to alcoholic cirrhosis Narrative/Plan: The patient is status post paracentesis of 13.1 L of fluid removal and albumin. He will likely need weekly outpatient paracentesis. Patient has been noncompliant in the past with diuretics, discussed again with patient importance of compliance with diuretics. Patient had a repeat paracentesis, with 12 L of fluid removed Current Visit: Yes Status: Acute Code(s): K70.31 - ALCOHOLIC CIRRHOSIS OF LIVER WITH ASCITES SNOMED Code(s): 4692980599449481 (3) Alcohol abuse Current Visit: Yes Status: Acute Code(s): F10.10 - ALCOHOL ABUSE, UNCOMPLICATED SNOMED Code(s): 68803830 (4) Noncompliance with medication regimen Current Visit: Yes Status: Acute Code(s): Z91.14 - PATIENT'S OTHER NONCOMPLIANCE WITH MEDICATION REGIMEN SNOMED Code(s): 321831870 Plan: 1. Supportive care 2. Sodium restricted diet 3. Continue to monitor CBC, BMP, LFTs 4. Continue Lasix to 40 mg twice a day, patient to go home on Lasix 40 mg by mouth twice a day 5. Continue Spironolactone 100 mg twice a day 6. Alcohol abstinence 7. Extensive discussion with the patient on the need for medication compliance and alcohol abstinence, overall prognosis is poor 8. Continue large volume paracentesis as needed 9. No plans for endoscopic evaluation during this admission 10. Social work consult placed, patient at risk for readmission Thank you for this consultation, he may be discharged home from a astroenterology standpoint once otherwise medically stable. Discussed again with patient improtanceofmedication compliance and close follow-up with gastroenterology as well as outpatient weekly to biweekly paracentesis. Dr. Allan Juarez I agree with the dictator's note, documented as a scribe by Sheela Romano.
[2020-06-15] MEDS ORDERED: IBUPROFEN 200 MG TAB PO PRN (10:10)
--- NOTE | 2020-06-15 10:12 | PN ---
PROGRESS NOTE DATE OF SERVICE: 06/14/2020 A 65-year-old white male who has end-stage liver disease. Hemoglobin stable at 11.7. He is going to be set up with GI as an outpatient for possible weekly secondary to severe ascites and end-stage renal disease. Surgery is going to see him for possible umbilical hernia repair before he goes home. He has had 2 large volume paracenteses this admission. Denies any coffee-ground emesis. He is going to go home with his son since he come to the house. PHYSICAL EXAMINATION: Temperature 98.2, pulse 70s, respiratory rate 16 to 18, blood pressure 112/67, O2 97%. CARDIOVASCULAR: S1, S2. GI: Soft, distended due to large fluid wave, umbilical hernia. Mild jaundice. Labs are reviewed. He has a large umbilical hernia. ASSESSMENT: Decompensated cirrhosis of the liver. Remains on Lasix, spironolactone, and quit alcohol drinking has been stressed to him multiple times. He has had 13.1 L and 12 L fluid removed. Diuretics are to be complied with as an outpatient, which he has not done recently, noncompliance in the past. Prognosis is guarded. MMODL / IJN: [id number] /
--- NOTE | 2020-06-15 13:42 | P.PN ---
Subjective Progress Note Date: 06/15/20 CHIEF COMPLAINT: Abdominal distention HISTORY OF PRESENT ILLNESS: 30 service is following in regards to patient's umbilical hernia. Patient denies any abdominal pain. Denies any nausea or vomiting. He is having bowel movements. He is tolerating diet. He is afebrile. WBC 4.03 PHYSICAL EXAM: VITAL SIGNS: Reviewed. GENERAL: Well-developed in no acute distress. HEENT: No sclera icterus. Extraocular movements grossly intact. Moist buccal mucosa. Head is atraumatic, normocephalic. ABDOMEN: Soft. Distended Nontender. Umbilical hernia nontender with palpation NEUROLOGIC: Alert and oriented. Cranial nerves II through XII grossly intact. ASSESSMENT: 1. Umbilical hernia 2. Liver cirrhosis with abdominal ascites PLAN: -No surgical intervention planned. Patient would be high risk for surgery due to his liver cirrhosis and abdominal ascites -Continue supportive care -Patient can be discharge from surgical standpoint Physician Carpenter Prototype note has been reviewed by physician. Signing provider agrees with the documented findings, assessment, and plan of care. Objective - Vital Signs Vital signs: Vital Signs Temp 98.2 F 06/15/20 07:35 Pulse 73 06/15/20 07:35 Resp 16 06/15/20 08:00 BP 112/67 06/15/20 07:35 Pulse Ox 97 06/15/20 07:35 Intake & Output 06/14/20 06/15/20 06/15/20 18:59 06:59 18:59 Intake Total 450 240 634 Balance 450 240 634 Weight 124.738 kg Intake: IV 50 cefTRIAXone 1 gm In 50 Sodium Chloride 0.9% 50 ml @ 100 mls/hr IVPB Q24HR [facility] Rx#:[id number] Oral 400 240 634 Other: Voiding Method Toilet Toilet Toilet # Voids 3 3 - Labs CBC & Chem 7: 06/14/20 06:04 06/14/20 06:04
--- NOTE | 2020-06-15 19:53 | P.PN ---
Subjective Progress Note Date: 06/15/20 Principal diagnosis: late entry seen and evaluated in am patient hoping for discharge today Objective - Vital Signs Vital signs: Vital Signs Temp 98.2 F 06/15/20 07:35 Pulse 73 06/15/20 07:35 Resp 16 06/15/20 08:00 BP 112/67 06/15/20 07:35 Pulse Ox 97 06/15/20 07:35 Intake & Output 06/15/20 06/15/20 06/16/20 06:59 18:59 06:59 Intake Total 240 634 Balance 240 634 Intake: Oral 240 634 Other: Voiding Method Toilet Toilet # Voids 3 - Exam - Constitutional General appearance: cooperative, no acute distress - EENT Eyes: EOMI, PERRLA ENT: NA/AT, normal oropharynx - Respiratory Respiratory: bilateral: diminished - Cardiovascular Rhythm: irregularly irregular leg Peripheral Edema: bilateral: 3+ - Gastrointestinal General gastrointestinal: distended - Genitourinary Male genitourinary: scrotal edema - Integumentary Integumentary: pale - Neurologic Neurologic: CNII-XII intact - Musculoskeletal Musculoskeletal: generalized weakness - Psychiatric Psychiatric: A&O x's 3 - Labs CBC & Chem 7: 06/14/20 06:04 06/14/20 06:04 Assessment and Plan (1) Pancytopenia Status: Acute Code(s): D61.818 - OTHER PANCYTOPENIA SNOMED Code(s): 089425257 (2) Alcohol abuse Status: Acute Code(s): F10.10 - ALCOHOL ABUSE, UNCOMPLICATED SNOMED Code(s): 25128868 (3) Ascites due to alcoholic cirrhosis Status: Acute Code(s): K70.31 - ALCOHOLIC CIRRHOSIS OF LIVER WITH ASCITES SNOMED Code(s): 2716759115363212 Plan: Pancytopenia likely due to liver disease and ETOH Additional pancytopenia work-up ordered At this time his bloodwork is within safe ranges and no intervention is needed iron studies are decreased this could be nutritional versus GI blood loss, Discussed with GI and will follow outpatient for further evaluation Labs stable, ok for discharge from oncology stand point, discussed with primary and nursing
[2020-06-18 13:55] LABS: HCV Qualitative Result DETECTED (Not detected); HCV Quant Log 3.32 (<1.08)
== END 2020-06-15 14:17 | disposition home or self-care (01) | DRG 433 ==
LOC: EC 10:27 → 6NMEDSUR 13:08 → OBSVTOIN 06-09 13:45 → 6NMEDSUR 06-11 23:26
PROVIDERS: ADMIT Family Medicine; ATTEND Family Medicine
PROC: 0W9G3ZZ Drainage of Peritoneal Cavity, Percutaneous Approach (ICD-10-PCS; principal; 2020-06-07)
PROC: 0W9G3ZZ Drainage of Peritoneal Cavity, Percutaneous Approach (ICD-10-PCS; 2020-06-13)
DX: K70.31 Alcoholic cirrhosis of liver with ascites (principal); N39.0 Urinary tract infection, site not specified; D61.818 Other pancytopenia; F10.20 Alcohol dependence, uncomplicated; Z91.14 Patient's other noncompliance with medication regimen; B19.20 Unspecified viral hepatitis C without hepatic coma; B96.20 Unspecified Escherichia coli [E. coli] as the cause of diseases classified elsewhere; I10 Essential (primary) hypertension; K72.90 Hepatic failure, unspecified without coma; K42.9 Umbilical hernia without obstruction or gangrene; Z20.822 Contact with and (suspected) exposure to COVID-19; Z91.19 Patient's noncompliance with other medical treatment and regimen; E66.9 Obesity, unspecified; Z68.38 Body mass index [BMI] 38.0-38.9, adult; Z79.899 Other long term (current) drug therapy
CPT/HCPCS: 36415; 49083; 71045; 74018; 76705; 80048; 80053; 80320; 81001; 82042; 82140; 82150; 82607; 82728; 82746; 82784; 83540; 83550; 83615; 83690; 83883; 83921; 84157; 84165; 85025; 85045; 85049; 85610; 85652; 85730; 86334; 87077; 87086; 87186; 87522; 87635; 89050; 93005; 99285

== ENCOUNTER 2020-08-08 12:41 | Inpatient (IN) | payer OTHER ==
--- NOTE | 2020-08-08 14:17 | ED ---
General Adult HPI - General Chief complaint: Recheck/Abnormal Lab/Rx Stated complaint: fluid retention Time Seen by Provider: 08/08/20 12:55 Source: patient, EMS, RN notes reviewed, old records reviewed Mode of arrival: wheelchair Limitations: no limitations - History of Present Illness Initial comments: This is a 65-year-old male who comes to the emergency department for abdominal distention and leg edema. Patient has a history of drinking and ascites. Patient isn't really sure why is here he states he should've asked my son he is the one that called the ambulance. Patient denies any difficulty breathing or abdominal pain. Patient did tell triage that he might have some difficulty breathing but he denied it to me. Patient however is not oriented to place or time. Patient is oriented to self. Patient denies any headache patient states he did fall a few days ago and asked why he has an abrasion on his forehead. Patient denies any neck pain. Patient denies numbness or weakness. Patient denies any chest pain or palpitations. Patient denies any recent fever chills or cough per patient denies any vomiting or diarrhea. Patient does state he is still drinking. - Related Data Previous Rx's Medication Instructions Recorded Furosemide [Lasix] 40 mg PO BID@0900,1600 90 Days #90 06/13/20 tab Potassium Chloride ER [K-Dur 20] 20 meq PO DAILY 90 Days #90 06/13/20 tab.er.prt Spironolactone [Aldactone] 100 mg PO DAILY 90 Days #90 tab 06/13/20 Thiamine [Vitamin B-1] 100 mg PO DAILY 90 Days #90 tab 06/13/20 Allergies Allergy/AdvReac Type Severity Reaction Status Date / Time No Known Allergies Allergy Verified 08/08/20 13:22 Review of Systems ROS Statement: Those systems with pertinent positive or pertinent negative responses have been documented in the HPI. ROS Other: All systems not noted in ROS Statement are negative. Past Medical History Past Medical History: Hypertension, Liver Disease History of Any Multi-Drug Resistant Organisms: None Reported Past Surgical History: Appendectomy Additional Past Surgical History / Comment(s): paracentesis, jaw Past Anesthesia/Blood Transfusion Reactions: No Reported Reaction Past Psychological History: No Psychological Hx Reported Smoking Status: Never smoker Past Alcohol Use History: None Reported Past Drug Use History: None Reported, Marijuana General Exam - General Exam Comments Initial Comments: GENERAL: Patient is well-developed and well-nourished. Patient is nontoxic and well- hydrated and is in mild distress. ENT: Neck is soft and supple. No significant lymphadenopathy is noted. Oropharynx is clear. Moist mucous membranes. Neck has full range of motion without eliciting any pain. EYES: The sclera were anicteric and conjunctiva were pink and moist. Extraocular movements were intact and pupils were equal round and reactive to light. Eyelids were unremarkable. PULMONARY: Unlabored respirations. Good breath sounds bilaterally. No audible rales rhonchi or wheezing was noted. CARDIOVASCULAR: There is a regular rate and rhythm without any murmurs gallops or rubs. ABDOMEN: Abdomen is grossly distended typical of ascites. Patient has an umbilical hernia which is easily reducible SKIN: Skin is clear with no lesions or rashes and otherwise unremarkable. NEUROLOGIC: Patient is alert and oriented 1. Cranial nerves II through XII are grossly intact. Motor and sensory are also intact. Normal speech, volume and content. Symmetrical smile. MUSCULOSKELETAL: Normal extremities with adequate strength and full range of motion. 3+ edema bilaterally LYMPHATICS: No significant lymphadenopathy is noted PSYCHIATRIC: Normal psychiatric evaluation. Limitations: no limitations Course Vital Signs 08/08/20 08/08/20 13:21 14:01 Temperature 97.6 F Pulse Rate 109 H Pulse Rate [ 110 H [employer] ] Respiratory 22 Rate Blood Pressure 102/70 O2 Sat by Pulse 95 Oximetry Medical Decision Making - Medical Decision Making EKG shows sinus tachycardia at 111 bpm VA interval is 176 QRS is 88 QT interval 346 QTC is 470. Patient's EKG shows no ST segment elevation or depression. Patient has obvious ascites. CT of the brain shows no acute abnormality. CBC is C-spine shows no acute abnormality. X-ray of the chest shows no acute abnormality. I spoke with sounds this out once patient admitted radiology be consulted for paracentesis. - Lab Data Result diagrams: 08/08/20 14:10 08/08/20 14:10 Lab Results 08/08/20 08/08/20 08/08/20 Range/Units 14:10 14:10 14:10 WBC 5.7 (3.8-10.6) k/uL RBC 4.11 L (4.30-5.90) m/uL Hgb 13.7 (13.0-17.5) gm/dL Hct 38.9 L (39.0-53.0) % MCV 94.7 D (80.0-100.0) fL MCH 33.4 (25.0-35.0) pg MCHC 35.3 (31.0-37.0) g/dL RDW 14.2 (11.5-15.5) % Plt Count 126 L (150-450) k/uL MPV 6.9 Neutrophils % 78 % Lymphocytes % 14 % Monocytes % 6 % Eosinophils % 1 % Basophils % 1 % Neutrophils # 4.4 (1.3-7.7) k/uL Lymphocytes # 0.8 L (1.0-4.8) k/uL Monocytes # 0.3 (0-1.0) k/uL Eosinophils # 0.1 (0-0.7) k/uL Basophils # 0.0 (0-0.2) k/uL PT (9.0-12.0) sec INR (<1.2) APTT (22.0-30.0) sec Sodium 131 L (137-145) mmol/L Potassium 4.6 (3.5-5.1) mmol/L Chloride 100 (98-107) mmol/L Carbon Dioxide 19 L (22-30) mmol/L Anion Gap 12 mmol/L BUN 13 (9-20) mg/dL Creatinine 1.02 (0.66-1.25) mg/dL Est GFR (CKD-EPI)AfAm 88 (>60 ml/min/1.73 sqM) Est GFR (CKD-EPI)NonAf 77 (>60 ml/min/1.73 sqM) Glucose 90 (74-99) mg/dL Calcium 8.7 (8.4-10.2) mg/dL Magnesium 1.7 (1.6-2.3) mg/dL Total Bilirubin 4.5 H (0.2-1.3) mg/dL AST 63 H (17-59) U/L ALT 20 (4-49) U/L Alkaline Phosphatase 99 (38-126) U/L Ammonia 21 (<30) umol/L Total Protein 8.5 H (6.3-8.2) g/dL Albumin 3.4 L (3.5-5.0) g/dL Amylase 60 (30-110) U/L Lipase 39 (23-300) U/L Serum Alcohol <10 mg/dL 08/08/20 Range/Units 14:10 WBC (3.8-10.6) k/uL RBC (4.30-5.90) m/uL Hgb (13.0-17.5) gm/dL Hct (39.0-53.0) % MCV (80.0-100.0) fL MCH (25.0-35.0) pg MCHC (31.0-37.0) g/dL RDW (11.5-15.5) % Plt Count (150-450) k/uL MPV Neutrophils % % Lymphocytes % % Monocytes % % Eosinophils % % Basophils % % Neutrophils # (1.3-7.7) k/uL Lymphocytes # (1.0-4.8) k/uL Monocytes # (0-1.0) k/uL Eosinophils # (0-0.7) k/uL Basophils # (0-0.2) k/uL PT 12.5 H (9.0-12.0) sec INR 1.2 H (<1.2) APTT 26.3 (22.0-30.0) sec Sodium (137-145) mmol/L Potassium (3.5-5.1) mmol/L Chloride (98-107) mmol/L Carbon Dioxide (22-30) mmol/L Anion Gap mmol/L BUN (9-20) mg/dL Creatinine (0.66-1.25) mg/dL Est GFR (CKD-EPI)AfAm (>60 ml/min/1.73 sqM) Est GFR (CKD-EPI)NonAf (>60 ml/min/1.73 sqM) Glucose (74-99) mg/dL Calcium (8.4-10.2) mg/dL Magnesium (1.6-2.3) mg/dL Total Bilirubin (0.2-1.3) mg/dL AST (17-59) U/L ALT (4-49) U/L Alkaline Phosphatase (38-126) U/L Ammonia (<30) umol/L Total Protein (6.3-8.2) g/dL Albumin (3.5-5.0) g/dL Amylase (30-110) U/L Lipase (23-300) U/L Serum Alcohol mg/dL Disposition Clinical Impression: Ascites Disposition: ADMITTED IP TO THIS HOSP Referrals: None,Stated [Primary Care Provider] - 1-2 days Time of Disposition: 15:41
[2020-08-08 14:31] LABS: Basophils % (A) 1 %; Eosinophils # (A) 0.1 k/uL (0-0.7); Eosinophils % (A) 1 %; HCT 38.9 % (39.0-53.0); HGB 13.7 gm/dL (13.0-17.5); Lymphocytes # (A) 0.8 k/uL (1.0-4.8); Lymphocytes % (A) 14 %; MCH 33.4 pg (25.0-35.0); MCHC 35.3 g/dL (31.0-37.0); Mean Platelet Volume 6.9; Monocytes # (A) 0.3 k/uL (0-1.0); Monocytes % (A) 6 %; Neutrophils # (A) 4.4 k/uL (1.3-7.7); Neutrophils % (A) 78 %; Platelet Count 126 k/uL (150-450); RBC 4.11 m/uL (4.30-5.90); RDW 14.2 % (11.5-15.5); WBC 5.7 k/uL (3.8-10.6)
[2020-08-08 14:36] LABS: MCV 94.7 fL (80.0-100.0)
[2020-08-08 14:44] LABS: INR 1.2 (<1.2); Partial Thromboplastin Time 26.3 sec (22.0-30.0); Prothrombin Time 12.5 sec (9.0-12.0)
--- NOTE | 2020-08-08 14:56 | XR ---
EXAMINATION TYPE: XR chest 1V portable DATE OF EXAM: 08/08/2020 COMPARISON: 06/06/2020 INDICATION: Short of breath TECHNIQUE: Single frontal view of the chest is obtained. FINDINGS: The heart size is normal. The pulmonary vasculature is normal. The lungs are clear. There is chronic elevation of the right diaphragm. Old clavicular fractures are present IMPRESSION: 1. No acute pulmonary process.
[2020-08-08 15:05] LABS: ALT 20 U/L (4-49); AST 63 U/L (17-59); African American GFR (CKD) 88 (>60 ml/min/1.73 sqM); Albumin 3.4 g/dL (3.5-5.0); Alcohol <10 mg/dL; Alkaline Phosphatase 99 U/L (38-126); Amylase 60 U/L (30-110); Anion Gap 12 mmol/L; Blood Urea Nitrogen 13 mg/dL (9-20); Calcium 8.7 mg/dL (8.4-10.2); Carbon Dioxide 19 mmol/L (22-30); Chloride 100 mmol/L (98-107); Glucose 90 mg/dL (74-99); Lipase 39 U/L (23-300); Magnesium 1.7 mg/dL (1.6-2.3); Non-African American GFR(CKD) 77 (>60 ml/min/1.73 sqM); Potassium 4.6 mmol/L (3.5-5.1); Sodium 131 mmol/L (137-145); Total Bilirubin 4.5 mg/dL (0.2-1.3); Total Protein 8.5 g/dL (6.3-8.2)
--- NOTE | 2020-08-08 15:06 | CT ---
EXAMINATION TYPE: CT brain tyler coburn DATE OF EXAM: 08/08/2020 COMPARISON: None HISTORY: Trauma, shortness of breath, alcoholism CT DLP: 1382.3 mGycm Automated exposure control for dose reduction was used. TECHNIQUE: CT scan of the head and cervical spine are performed without contrast. FINDINGS: There is no acute intracranial hemorrhage, mass effect, or midline shift identified. The re is encephalomalacia involving the left occipital lobe consistent with remote infarct, correlate fo r appropriate history. The ventricles and sulci are within normal limits in size for patient's age, t here is cortical atrophy, periventricular white matter shows patchy low attenuation. There are cereb ral vascular calcifications. The patient is edentulous. The globes are intact and the visualized sinu ses are clear. Cervical spine is visualized in its entirety from C1 through upper thoracic levels and demonstrates s atisfactory alignment without evidence of acute fracture or dislocation. Prevertebral soft tissue ap pears within normal limits. There is multilevel disc disease, spondylosis with loss of disc height, t here is associated facet arthropathy change. Probable nutrient foramen present through the posterior elements of the right C2 vertebral body The C1-C2 articulation is unremarkable. Carotid artery calci fications are present. IMPRESSION: 1. There is no acute fracture or dislocation evident in the cervical spine. 2. No acute intracranial hemorrhage, mass effect, or midline shift is seen. Chronic small vessel isch emic changes including cerebral vascular accident, age related atrophy
[2020-08-08] MEDS ORDERED: THIAMINE 100 MG/ML 2 ML VIAL IM STA (15:42)
--- NOTE | 2020-08-08 17:00 | P.HPIM ---
History of Present Illness H&P Date: 08/08/20 This is a 65-year-old male with past medical history significant for heavy alcohol abuse with alcoholic liver cirrhosis that was brought into the emergency room by his son secondary to abdominal distention. Patient is awake and alert. He is oriented 3. He is a very poor historian. I called his son over the phone to obtain medical history. He told me that his father is been living with his brother that has not been taking care of him. Patient continues to drink. He has been getting weaker and now is unable to move around. He went to visit him today and found him with severe abdominal distention and decided to bring him to the hospital for further evaluation. Patient himself does not have any specific complaints. Apparently he had multiple falls over the last several weeks. Review of Systems Review of system: 14 points review of systems were obtained and were negative except to what were mentioned in the HPI. Past Medical History Past Medical History: Hypertension, Liver Disease History of Any Multi-Drug Resistant Organisms: None Reported Past Surgical History: Appendectomy Additional Past Surgical History / Comment(s): paracentesis, jaw Past Anesthesia/Blood Transfusion Reactions: No Reported Reaction Past Psychological History: No Psychological Hx Reported Smoking Status: Never smoker Past Alcohol Use History: None Reported Past Drug Use History: None Reported, Marijuana Medications and Allergies Home Medications Medication Instructions Recorded Confirmed Type Furosemide [Lasix] 40 mg PO BID@0900,1600 90 Days #90 06/13/20 08/08/20 Rx tab Potassium Chloride ER [K-Dur 20] 20 meq PO DAILY 90 Days #90 06/13/20 08/08/20 Rx tab.er.prt Spironolactone [Aldactone] 100 mg PO DAILY 90 Days #90 tab 06/13/20 08/08/20 Rx Thiamine [Vitamin B-1] 100 mg PO DAILY 90 Days #90 tab 06/13/20 08/08/20 Rx Allergies Allergy/AdvReac Type Severity Reaction Status Date / Time No Known Allergies Allergy Verified 08/08/20 16:09 Physical Exam Vitals: Vital Signs Temp Pulse Pulse Resp BP Pulse Ox 08/08/20 15:20 112 H 18 120/89 98 08/08/20 14:01 110 H 08/08/20 13:21 97.6 F 109 H 22 102/70 95 Intake and Output 06/08/08/20 08/08/20 06:59 14:59 22:59 Other: Weight 127.006 kg General: The patient is awake and alert, in no distress Eye: there is normal conjunctiva bilaterally. Neck: The neck is supple, there is no JVD. Cardiovascular: Normal S1-S2, no S3-S4, no murmurs. Respiratory: Lungs clear to auscultation bilaterally Gastrointestinal: Abdomen is severely distended with evidence of large ascites Musculoskeletal: There is +2 pedal edema. Neurological:. Speech is normal. Skin: Skin is warm and dry Results CBC & Chem 7: 08/08/20 14:10 08/08/20 14:10 Labs: Abnormal Lab Results - Last 24 Hours (Table) 08/08/20 08/08/20 08/08/20 Range/Units 14:10 14:10 14:10 RBC 4.11 L (4.30-5.90) m/uL Hct 38.9 L (39.0-53.0) % Plt Count 126 L (150-450) k/uL Lymphocytes # 0.8 L (1.0-4.8) k/uL PT 12.5 H (9.0-12.0) sec INR 1.2 H (<1.2) Sodium 131 L (137-145) mmol/L Carbon Dioxide 19 L (22-30) mmol/L Total Bilirubin 4.5 H (0.2-1.3) mg/dL AST 63 H (17-59) U/L Total Protein 8.5 H (6.3-8.2) g/dL Albumin 3.4 L (3.5-5.0) g/dL Assessment and Plan Assessment: 1. Large ascites, recurrent 2. Decompensated alcoholic liver cirrhosis 3. Alcohol abuse 4. Physical debility 5. Noncompliance with medication 6. CODE STATUS: Patient is full code Today, I reviewed his medication list and lab work results. Consult IR for paracentesis. Anticipate that patient will require large paracentesis so albumin ordered to be given after paracentesis. Continue diuretics with IV Lasix 40 mg twice daily and spironolactone 100 mg daily. Consult PT/OT and social work. I discussed with his son today over the phone with the status and plan for discharge. He would like to take them with him home.
--- NOTE | 2020-08-08 17:01 | P.PN ---
Progress Note - Text Progress Note Date: 08/08/20 Today, I had a prolonged discussion over the phone with his son El regarding goals of care and CODE STATUS. We discussed the meaning of resuscitation including cardiac resuscitation and intubation and mechanical ventilator if needed. His son told me that patient wishes to be a full code. They're not interested in comfort measures at this time.
[2020-08-08] MEDS ORDERED: IBUPROFEN 400 MG TAB PO STA (20:10)
[2020-08-08] MEDS: FUROSEMIDE 10 MG/ML 4 ML VIAL IV SCH (20:21)
[2020-08-08] MEDS: LORazepam 2 MG/ML INJ IV PRN (21:24)
[2020-08-09] MEDS ORDERED: traMADol 50 MG TAB PO STA (00:23)
[2020-08-09] MEDS: LORazepam 2 MG/ML INJ IV PRN ×6 (02:17→23:26)
[2020-08-09] MEDS: FUROSEMIDE 10 MG/ML 4 ML VIAL IV SCH ×2 (08:18→20:03)
[2020-08-09] MEDS: SPIRONOLACTONE 25 MG TAB PO SCH (08:18)
[2020-08-09] MEDS: THIAMINE 100 MG TAB PO SCH ×2 (08:18→17:30)
[2020-08-09] MEDS ORDERED: THIAMINE 100 MG TAB PO SCH (09:00)
[2020-08-09] MEDS ORDERED: POTASSIUM CHLORIDE ER 20 MEQ TAB.ER PO SCH (09:00)
[2020-08-09] MEDS ORDERED: SPIRONOLACTONE 25 MG TAB PO SCH (09:00)
[2020-08-09 09:41] LABS: African American GFR (CKD) 80.6 (60.0-200.0); BUN/Creat Ratio 14.55 Ratio (12.00-20.00); Calcium 7.8 mg/dL (8.7-10.3); Magnesium 1.6 mg/dL (1.5-2.4); Non-African American GFR(CKD) 69.6 (60.0-200.0); Potassium 4.1 mmol/L (3.5-5.5)
[2020-08-09] MEDS ORDERED: ALBUMIN HUMAN 25% 50 ML in EMPTY BAG 1 BAG IVPB SCH (10:00)
--- NOTE | 2020-08-09 14:21 | US ---
EXAMINATION TYPE: US paracentesis abd w/image DATE OF EXAM: 08/09/2020 COMPARISON: NONE HISTORY: Ascites. PROCEDURE: Maximal barrier technique was utilized. The skin overlying a suitable pocket of fluid was localized with ultrasound and the overlying skin was prepped and draped. Ultrasound was utilized with sterile technique. Lidocaine was used for local anesthesia and a skin jose m made with a scalpel. Catheter was advanced under direct ultrasound guidance into a suitable pocket of fluid and approximately 10.7 lite rs of serous fluid were removed. Catheter was withdrawn and hemostasis achieved. There is no immedi ate complication; the patient is discharged in stable condition. IMPRESSION: STATUS POST ULTRASOUND GUIDED PARACENTESIS FOR PALLIATION OF ASCITES. THIS PROCEDURE WA S PERFORMED BY THE UNDERSIGNED.
--- NOTE | 2020-08-09 15:23 | P.EN ---
I Responded to a rapid response called on patient secondary to tachycardia. Patient just returned from paracentesis after approximately 10 L of fluid were removed. Patient was tachycardic with heart rate of 175. I'll obtain a 12-lead EKG showing evidence of SVT. Patient was hemodynamically stable. Plan was to push IV adenosine that his IV was nonfunctional and by the time nurses established a new IV his heart rate was down to the 90s and in normal sinus rhythm. Patient blood pressure dropped transiently to 85/40 after heart rate improvement his blood pressure was back to 108/60. He is about to receive IV albumin infusion. He was also noted to have urinary retention on bladder scan was approximately 600 mL of urine noted. Machuca catheter was inserted. Patient was stabilized.
--- NOTE | 2020-08-09 15:28 | P.PN ---
Subjective Progress Note Date: 08/09/20 Patient just returned from paracentesis. A rapid response was called secondary to tachycardia detailed on separate note. Patient himself does not have any complaints. He is frustrated that we wanted him eat his lunch quietly. Objective - Vital Signs Vital signs: Vital Signs Temp 97.9 F 08/09/20 07:00 Pulse 96 08/09/20 13:11 Resp 16 08/09/20 13:11 BP 110/61 08/09/20 13:11 Pulse Ox 95 08/09/20 13:11 Intake & Output 08/08/20 08/09/20 08/09/20 18:59 06:59 18:59 Output Total 150 Balance -150 Weight 127.006 kg Output: Urine 150 Other: Voiding Method Bedside Commode Urinal Urinal Diaper Diaper # Voids 2 2 - Exam General: The patient is awake and alert, in no distress Eye: there is normal conjunctiva bilaterally. Neck: The neck is supple, there is no JVD. Cardiovascular: Normal S1-S2, no S3-S4, no murmurs. Respiratory: Lungs clear to auscultation bilaterally Gastrointestinal: Abdomen is soft, still distended but significantly better compared to yesterday Musculoskeletal: There is no pedal edema. Neurological:. Speech is normal. Skin: Skin is warm and dry - Labs CBC & Chem 7: 08/08/20 14:10 08/09/20 04:52 Labs: Abnormal Lab Results - Last 24 Hours (Table) 08/09/20 Range/Units 04:52 Sodium 131 L (135-145) mmol/L Glucose 111 H (70-110) mg/dL Calcium 7.8 L (8.7-10.3) mg/dL Assessment and Plan Assessment: This is a 65-year-old male with very complex past medical history noted below who was brought in to the emergency room with complaint of weakness and worsening abdominal distention. Patient was evaluated in the ER and admitted to the hospital for further management of his medical problems noted below. 1. Large ascites, recurrent: Status post paracentesis with approximately 10 L of fluid removed. Albumin will be transfused today. Continue diuretics with Lasix and Aldactone. 2. Decompensated alcoholic liver cirrhosis 3. Obstructive uropathy, 600 mL of urine noted on bladder ultrasound PVR. The Machuca catheter will be inserted. Start Flomax 0.4 mg daily. Voiding trial within the next day or 2 4. Transient episode of supraventricular tachycardia, probably secondary to volume depletion. Electrolytes within normal range. I would obtain echocardiogram. Continue telemetry monitoring. 5. Alcohol abuse 6. Physical debility: Physical therapy consulted 7. Noncompliance with medication 8. CODE STATUS: Patient is full code Today, I reviewed his medication list and lab work results. Continue current management. At Work in the morning.
[2020-08-09] MEDS: ALBUMIN HUMAN 25% 50 ML in EMPTY BAG 1 BAG IVPB SCH ×5 (15:59→18:30)
[2020-08-09] MEDS: TAMSULOSIN 0.4 MG CAP.ER.24H PO SCH (18:42)
[2020-08-09 18:58] LABS: Appearance,BF Clear; Color,BF Yellow; Nucleated Cells, Body Fluid 74 /uL; RBC, Body Fluid 48 /uL
[2020-08-09 19:06] LABS: Mononuclear WBC,Body Fluid 95 %; Polynuclear WBC,Body Fluid 5 %; Total Cells Counted,Body Fluid 100
[2020-08-09] MEDS: MAGNESIUM SULFATE-D5W PMX 1 GM in DEXTROSE/WATER 1 100ML.BAG IVPB SCH ×2 (20:03→21:32)
[2020-08-09] MEDS: diazePAM 5 MG TAB PO SCH (20:03)
[2020-08-10] MEDS: LORazepam 2 MG/ML INJ IV PRN ×13 (00:33→23:53)
[2020-08-10] MEDS ORDERED: chlordiazePOXIDE 25 MG CAP PO STA (03:51)
[2020-08-10] MEDS: THIAMINE 100 MG TAB PO SCH ×2 (06:16→17:42)
[2020-08-10 07:36] LABS: Basophils % (A) 0 %; Eosinophils # (A) 0.1 k/uL (0-0.7); Eosinophils % (A) 2 %; HCT 32.3 % (39.0-53.0); HGB 11.8 gm/dL (13.0-17.5); Lymphocytes # (A) 0.8 k/uL (1.0-4.8); Lymphocytes % (A) 22 %; MCH 34.5 pg (25.0-35.0); MCHC 36.4 g/dL (31.0-37.0); MCV 94.8 fL (80.0-100.0); Mean Platelet Volume 6.8; Monocytes # (A) 0.3 k/uL (0-1.0); Monocytes % (A) 8 %; Neutrophils # (A) 2.4 k/uL (1.3-7.7); Neutrophils % (A) 66 %; Platelet Count 100 k/uL (150-450); RBC 3.41 m/uL (4.30-5.90); RDW 14.4 % (11.5-15.5); WBC 3.6 k/uL (3.8-10.6)
[2020-08-10 08:03] LABS: African American GFR (CKD) >90 (>60 ml/min/1.73 sqM); Anion Gap 8 mmol/L; Blood Urea Nitrogen 12 mg/dL (9-20); Calcium 8.2 mg/dL (8.4-10.2); Carbon Dioxide 23 mmol/L (22-30); Chloride 104 mmol/L (98-107); Glucose 101 mg/dL (74-99); Magnesium 1.8 mg/dL (1.6-2.3); Non-African American GFR(CKD) >90 (>60 ml/min/1.73 sqM); Potassium 3.7 mmol/L (3.5-5.1); Sodium 135 mmol/L (137-145)
[2020-08-10] MEDS: FUROSEMIDE 10 MG/ML 4 ML VIAL IV SCH ×2 (08:08→20:31)
[2020-08-10] MEDS: diazePAM 5 MG TAB PO SCH ×3 (08:09→22:50)
[2020-08-10] MEDS: SPIRONOLACTONE 25 MG TAB PO SCH (08:09)
--- NOTE | 2020-08-10 11:48 | P.PN ---
Subjective Progress Note Date: 08/10/20 Patient is having severe alcohol withdrawal. He is requiring Ativan every hour. He appears slightly more confused compared to yesterday. Objective - Vital Signs Vital signs: Vital Signs Temp 97.9 F 08/10/20 08:00 Pulse 96 08/10/20 08:00 Resp 17 08/10/20 08:00 BP 106/66 08/10/20 08:00 Pulse Ox 97 08/10/20 08:00 Intake & Output 08/09/20 08/10/20 08/10/20 18:59 06:59 18:59 Intake Total 240 240 Output Total 300 3175 1000 Balance -300 -2935 -760 Weight 95.5 kg Intake: Oral 240 240 Output: Urine 300 3175 1000 Uretheral (Machuca) 400 Other: Voiding Method Urinal Indwelling Catheter Indwelling Catheter Diaper # Voids 2 - Exam General: The patient is awake and alert, in no distress Eye: there is normal conjunctiva bilaterally. Neck: The neck is supple, there is no JVD. Cardiovascular: Normal S1-S2, no S3-S4, no murmurs. Respiratory: Lungs clear to auscultation bilaterally Gastrointestinal: Abdomen is soft, still distended but significantly better compared to yesterday Musculoskeletal: There is no pedal edema. Neurological:. Speech is normal. Skin: Skin is warm and dry - Labs CBC & Chem 7: 08/10/20 07:05 08/10/20 07:05 Labs: Abnormal Lab Results - Last 24 Hours (Table) 08/10/20 08/10/20 Range/Units 07:05 07:05 WBC 3.6 L (3.8-10.6) k/uL RBC 3.41 L (4.30-5.90) m/uL Hgb 11.8 L (13.0-17.5) gm/dL Hct 32.3 L (39.0-53.0) % Plt Count 100 L (150-450) k/uL Lymphocytes # 0.8 L (1.0-4.8) k/uL Sodium 135 L (137-145) mmol/L Glucose 101 H (74-99) mg/dL Calcium 8.2 L (8.4-10.2) mg/dL Microbiology - Last 24 Hours (Table) 08/09/20 13:47 Gram Stain - Preliminary Ascites Fluid Body Fluid Culture - Preliminary 08/09/20 13:47 Anaerobic Culture - Preliminary Ascites Fluid Assessment and Plan Assessment: This is a 65-year-old male with very complex past medical history noted below who was brought in to the emergency room with complaint of weakness and wor sening abdominal distention. Patient was evaluated in the ER and admitted to the hospital for further management of his medical problems noted below. 1. Large ascites, recurrent: Status post paracentesis with approximately 10 L of fluid removed. Albumin transfused. Continue diuretics with Lasix and Aldactone. 2. Decompensated alcoholic liver cirrhosis 3. Obstructive uropathy, 600 mL of urine noted on bladder ultrasound PVR. Status post Machuca catheter insertion. Started Flomax 0.4 mg daily. Voiding trial within the next day or 2 4. Transient episode of supraventricular tachycardia after paracentesis, probably secondary to volume depletion. Electrolytes within normal range. I would obtain echocardiogram. Continue telemetry monitoring. 5. Alcohol abuse 6. Physical debility: Physical therapy consulted 7. Noncompliance with medication 8. CODE STATUS: Patient is full code Today, I reviewed his medication list and lab work results. Continue current management. I would check ammonia level today. He was normal on presentation. Increase Valium dose to 5 mg 3 times a day
[2020-08-10] MEDS: MAGNESIUM OXIDE 400 MG TAB PO SCH (13:23)
[2020-08-10] MEDS: TAMSULOSIN 0.4 MG CAP.ER.24H PO SCH (17:42)
[2020-08-11] MEDS: LORazepam 2 MG/ML INJ IV PRN ×3 (02:18→22:38)
[2020-08-11] MEDS: THIAMINE 100 MG TAB PO SCH ×2 (06:39→18:00)
[2020-08-11] MEDS: SPIRONOLACTONE 25 MG TAB PO SCH (09:39)
[2020-08-11] MEDS: MAGNESIUM OXIDE 400 MG TAB PO SCH (09:39)
[2020-08-11] MEDS: diazePAM 5 MG TAB PO SCH ×2 (09:39→20:01)
[2020-08-11] MEDS: FUROSEMIDE 10 MG/ML 4 ML VIAL IV SCH ×2 (09:41→20:01)
--- NOTE | 2020-08-11 13:20 | P.PN ---
Subjective Progress Note Date: 08/11/20 Patient is doing better today. No evidence of withdrawal. He is maintained on Valium. He is very weak and is unable to get out of bed. Objective - Vital Signs Vital signs: Vital Signs Temp 98.0 F 08/11/20 12:30 Pulse 92 08/11/20 12:30 Resp 20 08/11/20 12:30 BP 103/69 08/11/20 12:30 Pulse Ox 99 08/11/20 12:30 Intake & Output 08/10/20 08/11/20 08/11/20 18:59 06:59 18:59 Intake Total 240 Output Total 2200 2950 1400 Balance -1959 -2950 -1400 Weight 101 kg Intake: Oral 240 Output: Urine 2200 2950 1400 Uretheral (Machuca) 1400 Other: Voiding Method Indwelling Catheter Indwelling Catheter Indwelling Catheter # Bowel Movements 1 - Exam General: The patient is awake and alert, in no distress Eye: there is normal conjunctiva bilaterally. Neck: The neck is supple, there is no JVD. Cardiovascular: Normal S1-S2, no S3-S4, no murmurs. Respiratory: Lungs clear to auscultation bilaterally Gastrointestinal: Abdomen is soft, still distended but significantly better compared to yesterday Musculoskeletal: There is no pedal edema. Neurological:. Speech is normal. Skin: Skin is warm and dry - Labs CBC & Chem 7: 08/10/20 07:05 08/10/20 07:05 Labs: Microbiology - Last 24 Hours (Table) 08/09/20 13:47 Gram Stain - Preliminary Ascites Fluid Body Fluid Culture - Preliminary Assessment and Plan Assessment: This is a 65-year-old male with very complex past medical history noted below who was brought in to the emergency room with complaint of weakness and wo rsening abdominal distention. Patient was evaluated in the ER and admitted to the hospital for further management of his medical problems noted below. 1. Large ascites, recurrent: Status post paracentesis with approximately 10.7 L of fluid removed. Albumin transfused. Continue diuretics with Lasix and Aldactone. 2. Decompensated alcoholic liver cirrhosis 3. Obstructive uropathy, 600 mL of urine noted on bladder ultrasound PVR. Status post Machuca catheter insertion. Started Flomax 0.4 mg daily. Voiding trial within the next day or 2 4. Transient episode of supraventricular tachycardia after paracentesis, probably secondary to volume depletion. Electrolytes within normal range. I w ould obtain echocardiogram. Continue telemetry monitoring. 5. Alcohol abuse 6. Physical debility: Physical therapy consulted 7. Noncompliance with medication 8. CODE STATUS: Patient is full code Today, I reviewed his medication list and lab work results. Continue current management. Ammonia level checked and normal. Voiding trial tomorrow Decrease Valium dose to 5 mg twice daily
[2020-08-11] MEDS: TAMSULOSIN 0.4 MG CAP.ER.24H PO SCH (18:00)
[2020-08-12] MEDS: LORazepam 2 MG/ML INJ IV PRN ×2 (01:14→06:58)
[2020-08-12] MEDS: THIAMINE 100 MG TAB PO SCH ×2 (06:58→18:41)
[2020-08-12 07:10] LABS: Basophils % (A) 1 %; Eosinophils # (A) 0.1 k/uL (0-0.7); Eosinophils % (A) 2 %; HCT 38.7 % (39.0-53.0); HGB 13.6 gm/dL (13.0-17.5); Lymphocytes # (A) 0.9 k/uL (1.0-4.8); Lymphocytes % (A) 20 %; MCH 33.9 pg (25.0-35.0); MCHC 35.1 g/dL (31.0-37.0); MCV 96.5 fL (80.0-100.0); Mean Platelet Volume 6.7; Monocytes # (A) 0.3 k/uL (0-1.0); Monocytes % (A) 6 %; Neutrophils # (A) 3.1 k/uL (1.3-7.7); Neutrophils % (A) 70 %; Platelet Count 137 k/uL (150-450); RBC 4.01 m/uL (4.30-5.90); RDW 14.7 % (11.5-15.5); WBC 4.5 k/uL (3.8-10.6)
[2020-08-12 07:21] LABS: AST 53 U/L (17-59); African American GFR (CKD) >90 (>60 ml/min/1.73 sqM); Albumin 3.2 g/dL (3.5-5.0); Alkaline Phosphatase 73 U/L (38-126); Anion Gap 10 mmol/L; Blood Urea Nitrogen 13 mg/dL (9-20); Calcium 8.6 mg/dL (8.4-10.2); Carbon Dioxide 27 mmol/L (22-30); Chloride 100 mmol/L (98-107); Glucose 106 mg/dL (74-99); Magnesium 1.5 mg/dL (1.6-2.3); Non-African American GFR(CKD) >90 (>60 ml/min/1.73 sqM); Potassium 3.5 mmol/L (3.5-5.1); Sodium 137 mmol/L (137-145); Total Bilirubin 2.9 mg/dL (0.2-1.3); Total Protein 7.7 g/dL (6.3-8.2)
[2020-08-12 07:30] LABS: ALT 25 U/L (4-49)
[2020-08-12] MEDS: SPIRONOLACTONE 25 MG TAB PO SCH (09:07)
[2020-08-12] MEDS: MAGNESIUM OXIDE 400 MG TAB PO SCH (09:07)
[2020-08-12] MEDS: diazePAM 5 MG TAB PO SCH (09:07)
[2020-08-12] MEDS: FUROSEMIDE 10 MG/ML 4 ML VIAL IV SCH (09:22)
[2020-08-12] MEDS ORDERED: POTASSIUM CHLORIDE ER 20 MEQ TAB.ER PO STA (10:54)
[2020-08-12] MEDS: MAGNESIUM SULFATE-D5W PMX 1 GM in DEXTROSE/WATER 1 100ML.BAG IVPB SCH ×3 (11:58→16:28)
[2020-08-12] MEDS ORDERED: MAGNESIUM SULFATE-D5W PMX 1 GM in DEXTROSE/WATER 1 100ML.BAG IVPB SCH (12:15)
--- NOTE | 2020-08-12 13:35 | P.PN ---
Subjective Progress Note Date: 08/12/20 Patient is awake and alert today. No acute events overnight. Objective - Vital Signs Vital signs: Vital Signs Temp 97.9 F 08/12/20 11:59 Pulse 100 08/12/20 11:59 Resp 18 08/12/20 11:59 BP 92/48 08/12/20 11:59 Pulse Ox 96 08/12/20 11:59 Intake & Output 08/11/20 08/12/20 08/12/20 18:59 06:59 18:59 Intake Total 218 150 Output Total 1400 1400 Balance -1182 -1400 150 Weight 75 kg Intake: Oral 218 150 Output: Urine 1400 1400 Uretheral (Machuca) 1400 Other: Voiding Method Indwelling Catheter Indwelling Catheter Indwelling Catheter - Exam General: The patient is awake and alert, in no distress Eye: there is normal conjunctiva bilaterally. Neck: The neck is supple, there is no JVD. Cardiovascular: Normal S1-S2, no S3-S4, no murmurs. Respiratory: Lungs clear to auscultation bilaterally Gastrointestinal: Abdomen is soft, still distended but significantly better compared to yesterday Musculoskeletal: There is no pedal edema. Neurological:. Speech is normal. Skin: Skin is warm and dry - Labs CBC & Chem 7: 08/12/20 06:47 08/12/20 06:47 Labs: Abnormal Lab Results - Last 24 Hours (Table) 08/12/20 08/12/20 Range/Units 06:47 06:47 RBC 4.01 L (4.30-5.90) m/uL Hct 38.7 L (39.0-53.0) % Plt Count 137 L (150-450) k/uL Lymphocytes # 0.9 L (1.0-4.8) k/uL Glucose 106 H (74-99) mg/dL Magnesium 1.5 L (1.6-2.3) mg/dL Total Bilirubin 2.9 H (0.2-1.3) mg/dL Albumin 3.2 L (3.5-5.0) g/dL Microbiology - Last 24 Hours (Table) 08/09/20 13:47 Anaerobic Culture - Preliminary Ascites Fluid 08/09/20 13:47 Gram Stain - Preliminary Ascites Fluid Body Fluid Culture - Preliminary Assessment and Plan Assessment: This is a 65-year-old male with very complex past medical history noted below who was brought in to the emergency room with complaint of weakness and worsening abdominal distention. Patient was evaluated in the ER and admitted to the hospital for further management of his medical problems noted below. 1. Large ascites, recurrent: Status post paracentesis with approximately 10.7 L of fluid removed. Albumin transfused. Continue diuretics with Lasix and Aldactone. 2. Decompensated alcoholic liver cirrhosis 3. Obstructive uropathy, 600 mL of urine noted on bladder ultrasound PVR. Status post Machuca catheter insertion. Started Flomax 0.4 mg daily. Voiding trial within the next day or 2 4. Transient episode of supraventricular tachycardia after paracentesis, p robably secondary to volume depletion. Electrolytes within normal range. I would obtain echocardiogram. Continue telemetry monitoring. 5. Alcohol abuse 6. Physical debility: Physical therapy consulted 7. Noncompliance with medication 8. CODE STATUS: Patient is full code Today, I reviewed his medication list and lab work results. Continue current management. Ammonia level checked and normal. Voiding trial today Discontinue Valium
[2020-08-12] MEDS: FOLIC ACID 1 MG TAB PO SCH (16:29)
[2020-08-12] MEDS: FUROSEMIDE 40 MG TAB PO SCH (16:29)
[2020-08-12] MEDS: CYANOCOBALAMIN 500 MCG TAB PO SCH (16:29)
[2020-08-12] MEDS: TAMSULOSIN 0.4 MG CAP.ER.24H PO SCH (18:41)
[2020-08-13] MEDS: FOLIC ACID 1 MG TAB PO SCH (07:23)
[2020-08-13] MEDS: THIAMINE 100 MG TAB PO SCH ×2 (07:23→18:01)
[2020-08-13] MEDS: CYANOCOBALAMIN 500 MCG TAB PO SCH (07:23)
[2020-08-13] MEDS: FUROSEMIDE 40 MG TAB PO SCH ×2 (07:23→16:03)
[2020-08-13] MEDS: SPIRONOLACTONE 25 MG TAB PO SCH (07:23)
[2020-08-13] MEDS: MAGNESIUM OXIDE 400 MG TAB PO SCH (07:24)
--- NOTE | 2020-08-13 13:19 | P.DS ---
Providers Date of admission: 08/09/20 15:28 Expected date of discharge: 08/13/20 Attending physician: Reji Oleary Primary care physician: Stated None Hospital Course: This is a 65-year-old male with very complex past medical history noted below who was brought in to the emergency room with complaint of weakness and worsening abdominal distention. Patient was evaluated in the ER and admitted to the hospital for further management of his medical problems noted below. 1. Large ascites, recurrent: Status post paracentesis with approximately 10.7 L of fluid removed. Albumin transfused. Continue diuretics with Lasix and Aldactone. 2. Decompensated alcoholic liver cirrhosis 3. Obstructive uropathy, 600 mL of urine noted on bladder ultrasound PVR. Status post Machuca catheter insertion. Started Flomax 0.4 mg daily. Voiding trial today prior to discharge 4. Transient episode of supraventricular tachycardia after paracentesis, probably secondary to volume depletion. Electrolytes within normal range. Echocardiogram ordered by me was consulted by cardiology 5. Alcohol abuse 6. Physical debility: Physical therapy consulted 7. Noncompliance with medication 8. CODE STATUS: Patient is full code Patient will be discharged to [facility] in a stable condition Patient Condition at Discharge: Serious Plan - Discharge Summary Discharge Rx Participant: No New Discharge Prescriptions: New Folic Acid 1 mg PO DAILY tab Magnesium Oxide [Mag-Ox] 400 mg PO DAILY tab Cyanocobalamin [Vitamin B-12] 2,000 mcg PO DAILY tab Tamsulosin [Flomax] 0.4 mg PO PC-SUPPER cap.er.24h Furosemide [Lasix] 40 mg PO BID@0900,1600 tab Continue Spironolactone [Aldactone] 100 mg PO DAILY 90 Days #90 tab Thiamine [Vitamin B-1] 100 mg PO DAILY 90 Days #90 tab Potassium Chloride ER [K-Dur 20] 20 meq PO DAILY 90 Days #90 tab.er.prt Discontinued Furosemide [Lasix] 40 mg PO BID@0900,1600 90 Days #90 tab Discharge Medication List Potassium Chloride ER [K-Dur 20] 20 meq PO DAILY 90 Days #90 tab.er.prt 06/13/20 [Rx] Spironolactone [Aldactone] 100 mg PO DAILY 90 Days #90 tab 06/13/20 [Rx] Thiamine [Vitamin B-1] 100 mg PO DAILY 90 Days #90 tab 06/13/20 [Rx] Cyanocobalamin [Vitamin B-12] 2,000 mcg PO DAILY tab 08/13/20 [Rx] Folic Acid 1 mg PO DAILY tab 08/13/20 [Rx] Furosemide [Lasix] 40 mg PO BID@0900,1600 tab 08/13/20 [Rx] Magnesium Oxide [Mag-Ox] 400 mg PO DAILY tab 08/13/20 [Rx] Tamsulosin [Flomax] 0.4 mg PO PC-SUPPER cap.er.24h 08/13/20 [Rx] Follow up Appointment(s)/Referral(s): None,Stated [Primary Care Provider] - 1-2 days Discharge Disposition: TRANSFER TO SNF/ECF
[2020-08-13 14:38] VITALS: BP 90/56; PULSE 92; RESP 17; TEMP 98.4
[2020-08-13] MEDS: TAMSULOSIN 0.4 MG CAP.ER.24H PO SCH (18:01)
== END 2020-08-13 18:25 | DRG 433 ==
LOC: EC 12:41 → 6NMEDSUR 15:41 → 3SCARD 08-09 15:20 → OBSVTOIN 08-09 15:28 → 4SSUR 08-13 05:50
PROVIDERS: ADMIT Internal Medicine; ATTEND Internal Medicine
PROC: 0W9G3ZZ Drainage of Peritoneal Cavity, Percutaneous Approach (ICD-10-PCS; principal; 2020-08-09)
DX: K70.31 Alcoholic cirrhosis of liver with ascites (principal); I47.1 Supraventricular tachycardia; F10.139 Alcohol abuse with withdrawal, unspecified; I10 Essential (primary) hypertension; Z91.81 History of falling; F10.10 Alcohol abuse, uncomplicated; Z91.14 Patient's other noncompliance with medication regimen; E83.42 Hypomagnesemia; N13.9 Obstructive and reflux uropathy, unspecified; E86.9 Volume depletion, unspecified; Z79.899 Other long term (current) drug therapy; Z20.822 Contact with and (suspected) exposure to COVID-19
CPT/HCPCS: 36415; 49083; 70450; 71045; 72125; 80048; 80053; 80320; 82140; 82150; 83690; 83735; 85025; 85610; 85730; 87070; 87075; 87205; 87635; 89050; 93005; 99285

== ENCOUNTER 2020-09-06 23:36 | Inpatient (IN) | payer OTHER ==
[2020-09-07] MEDS ORDERED: HYDROmorphone 0.5 MG/0.5 ML SYRINGE IVP STA (00:12)
[2020-09-07] MEDS ORDERED: ONDANSETRON 4 MG/2 ML VIAL IVP STA (00:12)
[2020-09-07] MEDS ORDERED: SODIUM CHLORIDE 0.9% 1,000 ML IV STA (00:13)
[2020-09-07 00:44] LABS: Basophils % (A) 1 %; Eosinophils # (A) 0.1 k/uL (0-0.7); Eosinophils % (A) 3 %; HCT 38.4 % (39.0-53.0); HGB 13.1 gm/dL (13.0-17.5); Lymphocytes # (A) 0.9 k/uL (1.0-4.8); Lymphocytes % (A) 19 %; MCH 34.2 pg (25.0-35.0); MCHC 34.2 g/dL (31.0-37.0); Mean Platelet Volume 7.3; Monocytes # (A) 0.4 k/uL (0-1.0); Monocytes % (A) 8 %; Neutrophils # (A) 3.3 k/uL (1.3-7.7); Neutrophils % (A) 68 %; Platelet Count 118 k/uL (150-450); RBC 3.84 m/uL (4.30-5.90); RDW 12.8 % (11.5-15.5); WBC 4.9 k/uL (3.8-10.6)
[2020-09-07 00:59] LABS: ALT 62 U/L (4-49); AST 114 U/L (17-59); African American GFR (CKD) >90 (>60 ml/min/1.73 sqM); Albumin 2.5 g/dL (3.5-5.0); Alkaline Phosphatase 135 U/L (38-126); Anion Gap 4 mmol/L; Blood Urea Nitrogen 23 mg/dL (9-20); Calcium 7.8 mg/dL (8.4-10.2); Carbon Dioxide 22 mmol/L (22-30); Chloride 105 mmol/L (98-107); Glucose 106 mg/dL (74-99); Lipase 90 U/L (23-300); Non-African American GFR(CKD) 82 (>60 ml/min/1.73 sqM); Potassium 4.5 mmol/L (3.5-5.1); Sodium 131 mmol/L (137-145); Total Bilirubin 1.4 mg/dL (0.2-1.3); Total Protein 6.5 g/dL (6.3-8.2)
--- NOTE | 2020-09-07 01:24 | ED ---
Abdominal Pain HPI - General Chief Complaint: Abdominal Pain Stated Complaint: Abd Pain Time Seen by Provider: 09/06/20 23:48 Source: patient, family, EMS Mode of arrival: EMS Limitations: no limitations - History of Present Illness Initial Comments: 65-year-old male with history of liver cirrhosis and ascites presents emergency Department with a chief complaint of leaking from the bellybutton. Patient states about a month ago he underwent paracentesis at this hospital. States she had gradual increasing abdominal distention and today noticed leaking from his umbilical hernia. He noticed serosanguineous fluid coming out of his umbilical hernia. The son states the patient had large abdominal distention which has significantly decreased after he began to leak fluid from his umbilicus. He does report the abdominal pain, sharp, 8/10. He does report some nausea but denies any vomiting constipation or diarrhea. - Related Data Previous Rx's Medication Instructions Recorded Potassium Chloride ER [K-Dur 20] 20 meq PO DAILY 90 Days #90 06/13/20 tab.er.prt Spironolactone [Aldactone] 100 mg PO DAILY 90 Days #90 tab 06/13/20 Thiamine [Vitamin B-1] 100 mg PO DAILY 90 Days #90 tab 06/13/20 Cyanocobalamin [Vitamin B-12] 2,000 mcg PO DAILY tab 08/13/20 Folic Acid 1 mg PO DAILY tab 08/13/20 Furosemide [Lasix] 40 mg PO BID@0900,1600 tab 08/13/20 Magnesium Oxide [Mag-Ox] 400 mg PO DAILY tab 08/13/20 Metoprolol Tartrate [Lopressor] 12.5 mg PO BID #60 dose 08/13/20 Tamsulosin [Flomax] 0.4 mg PO PC-SUPPER cap.er.24h 08/13/20 Allergies Allergy/AdvReac Type Severity Reaction Status Date / Time No Known Allergies Allergy Verified 08/08/20 16:09 Review of Systems ROS Statement: Those systems with pertinent positive or pertinent negative responses have been documented in the HPI. ROS Other: All systems not noted in ROS Statement are negative. Past Medical History Past Medical History: Hypertension, Liver Disease Additional Past Medical History / Comment(s): hep C History of Any Multi-Drug Resistant Organisms: None Reported Past Surgical History: Appendectomy Additional Past Surgical History / Comment(s): paracentesis, jaw Past Anesthesia/Blood Transfusion Reactions: No Reported Reaction Past Psychological History: No Psychological Hx Reported Smoking Status: Never smoker Past Alcohol Use History: Occasional Past Drug Use History: None Reported, Marijuana - Past Family History Mother Family Medical History: Unable to Obtain Additional Family Medical History / Comment(s): unknown General Exam Limitations: no limitations General appearance: alert, in no apparent distress Head exam: Present: atraumatic, normocephalic, normal inspection Eye exam: Present: normal appearance, PERRL, EOMI Pupils: Present: normal accommodation ENT exam: Present: normal exam, normal oropharynx, mucous membranes moist Neck exam: Present: normal inspection, full ROM. Absent: tenderness, lymphadenopathy Respiratory exam: Present: normal lung sounds bilaterally. Absent: respiratory distress Cardiovascular Exam: Present: regular rate, normal rhythm, normal heart sounds. Absent: systolic murmur GI/Abdominal exam: Present: soft, tenderness, hernia (Serosanguineous fluid leaking from the umbilicus). Absent: distended, guarding, rebound, rigid Extremities exam: Present: normal inspection, full ROM, normal capillary refill. Absent: tenderness, pedal edema, joint swelling Back exam: Present: normal inspection, full ROM. Absent: tenderness, CVA tenderness (R), CVA tenderness (L) Neurological exam: Present: alert, oriented X3 Psychiatric exam: Present: normal affect, normal mood Skin exam: Present: warm, dry, intact, normal color Course Vital Signs 09/06/20 09/07/20 23:38 01:48 Pulse Rate 100 92 Respiratory 18 16 Rate Blood Pressure 103/51 112/61 O2 Sat by Pulse 98 96 Oximetry Medical Decision Making - Medical Decision Making 65-year-old male with history of liver cirrhosis and ascites presents emergency Department with a chief complaint of leaking from the bellybutton. On physical examination, serosanguineous fluid discharge from the umbilicus. CT of abdomen and pelvis shows an umbilical hernia. There is also an ileus noted multiple locations. Cholelithiasis without cholecystitis. Transaminitis noted. Patient will be started on antibiotics. Lactic acid within normal limits. Patient will be admitted for further medical management. Case discussed with Dr.Roskopp CARIAS on consult next Gen. surgery consult. - Lab Data Result diagrams: 09/07/20 00:12 09/07/20 00:12 Lab Results 09/07/20 09/07/20 09/07/20 Range/Units 00:12 00:12 00:13 WBC 4.9 (3.8-10.6) k/uL RBC 3.84 L (4.30-5.90) m/uL Hgb 13.1 (13.0-17.5) gm/dL Hct 38.4 L (39.0-53.0) % MCV 100.0 (80.0-100.0) fL MCH 34.2 (25.0-35.0) pg MCHC 34.2 (31.0-37.0) g/dL RDW 12.8 (11.5-15.5) % Plt Count 118 L (150-450) k/uL MPV 7.3 Neutrophils % 68 % Lymphocytes % 19 % Monocytes % 8 % Eosinophils % 3 % Basophils % 1 % Neutrophils # 3.3 (1.3-7.7) k/uL Lymphocytes # 0.9 L (1.0-4.8) k/uL Monocytes # 0.4 (0-1.0) k/uL Eosinophils # 0.1 (0-0.7) k/uL Basophils # 0.0 (0-0.2) k/uL Sodium 131 L (137-145) mmol/L Potassium 4.5 (3.5-5.1) mmol/L Chloride 105 (98-107) mmol/L Carbon Dioxide 22 (22-30) mmol/L Anion Gap 4 mmol/L BUN 23 H (9-20) mg/dL Creatinine 0.97 (0.66-1.25) mg/dL Est GFR (CKD-EPI)AfAm >90 (>60 ml/min/1.73 sqM) Est GFR (CKD-EPI)NonAf 82 (>60 ml/min/1.73 sqM) Glucose 106 H (74-99) mg/dL Plasma Lactic Acid Eddie 0.9 (0.7-2.0) mmol/L Calcium 7.8 L (8.4-10.2) mg/dL Total Bilirubin 1.4 H (0.2-1.3) mg/dL AST 114 H (17-59) U/L ALT 62 H (4-49) U/L Alkaline Phosphatase 135 H (38-126) U/L Total Protein 6.5 (6.3-8.2) g/dL Albumin 2.5 L (3.5-5.0) g/dL Lipase 90 (23-300) U/L Disposition Clinical Impression: Umbilical hernia, Ascites, Transaminitis Disposition: ADMITTED IP TO THIS HOSP Condition: Fair Is patient prescribed a controlled substance at d/c from ED?: No Referrals: None,Stated [Primary Care Provider] - 1-2 days Time of Disposition: 02:11
--- NOTE | 2020-09-07 01:44 | CT ---
EXAMINATION TYPE: CT abdomen pelvis w con DATE OF EXAM: 09/07/2020 COMPARISON: None HISTORY: pain CT DLP: mGycm Automated exposure control for dose reduction was used. CONTRAST: Performed with IV Contrast, patient injected with 100 mL of Isovue 300. Images obtained from the diaphragm to the floor the pelvis with IV contrast. The lung bases are clear of consolidation. Heart size is normal. There is no pericardial effusion. Th ere is multiple calcified gallstones along the gallbladder wall. The bile ducts are not dilated. Sple en is large and measures 14 cm. The liver is intact. Stomach is intact. There is no pancreatic mass. There is mild abdominal ascites. There is umbilical hernia that contains fat. There is subcutaneous e sol around the abdomen and pelvis. There is some gas and fluid-filled distended small bowel in the lower abdomen measuring up to 2.6 cm. This is likely related to ileus. There is no adrenal mass. Kidneys show satisfactory contrast opacification. There is no hydronephrosi s. Delayed images show normal renal excretion. Bladder distends smoothly. Lumbar spine is intact. The re is no compression fracture. There is no inguinal hernia. I see no evidence of a bowel obstruction. There are some splenic varices. IMPRESSION: There is abdominal ascites. There is splenomegaly and some of abdominal varices that is suggestive of portal venous hypertension. Cholelithiasis. Umbilical hernia noted. No evidence of thickened appendix. Extensive subcutaneous mulugeta ma around the abdomen. Multiple ileus.
[2020-09-07] MEDS ORDERED: ONDANSETRON 4 MG/2 ML VIAL IVP PRN (02:07)
[2020-09-07] MEDS ORDERED: NALOXONE 0.4 MG/ML 1 ML VIAL IV PRN (02:07)
[2020-09-07] MEDS ORDERED: PIPERACILLIN-TAZOBACTAM 3.375 GM in SODIUM CHLORIDE 0.9% 100 ML IVPB STA (02:11)
[2020-09-07] MEDS: HYDROmorphone 0.5 MG/0.5 ML SYRINGE IVP PRN ×4 (02:19→21:14)
[2020-09-07] MEDS: SODIUM CHLORIDE 0.9% 1,000 ML IV SCH ×2 (02:28→12:54)
[2020-09-07] MEDS ORDERED: SODIUM CHLORIDE 0.9% 500 ML 500 ML IV ONE ×2 (04:59→05:34)
--- NOTE | 2020-09-07 05:02 | ED ---
Medical Decision Making - Medical Decision Making This 65 male presents today for evaluation of complicated peritonitis, patient does have (communication secondary to umbilical hernia. Patient is having ascitic fluid drained from his anterior abdominal hernia. Patient significant amount of size lost his belly and presents today for evaluation. Patient has no significant abdominal pain or tenderness no fevers. During ER stay patient seen During ER stay patient develops significant tachycardia with labile blood pressure EKG shows a sinus tachycardia or SVT versus an A. fib at a rate of 140 QRS 86 QTc 499 - Lab Data Result diagrams: 09/07/20 00:12 09/07/20 00:12 Lab Results 09/07/20 09/07/20 09/07/20 Range/Units 00:12 00:12 00:13 WBC 4.9 (3.8-10.6) k/uL RBC 3.84 L (4.30-5.90) m/uL Hgb 13.1 (13.0-17.5) gm/dL Hct 38.4 L (39.0-53.0) % MCV 100.0 (80.0-100.0) fL MCH 34.2 (25.0-35.0) pg MCHC 34.2 (31.0-37.0) g/dL RDW 12.8 (11.5-15.5) % Plt Count 118 L (150-450) k/uL MPV 7.3 Neutrophils % 68 % Lymphocytes % 19 % Monocytes % 8 % Eosinophils % 3 % Basophils % 1 % Neutrophils # 3.3 (1.3-7.7) k/uL Lymphocytes # 0.9 L (1.0-4.8) k/uL Monocytes # 0.4 (0-1.0) k/uL Eosinophils # 0.1 (0-0.7) k/uL Basophils # 0.0 (0-0.2) k/uL Sodium 131 L (137-145) mmol/L Potassium 4.5 (3.5-5.1) mmol/L Chloride 105 (98-107) mmol/L Carbon Dioxide 22 (22-30) mmol/L Anion Gap 4 mmol/L BUN 23 H (9-20) mg/dL Creatinine 0.97 (0.66-1.25) mg/dL Est GFR (CKD-EPI)AfAm >90 (>60 ml/min/1.73 sqM) Est GFR (CKD-EPI)NonAf 82 (>60 ml/min/1.73 sqM) Glucose 106 H (74-99) mg/dL Plasma Lactic Acid Eddie 0.9 (0.7-2.0) mmol/L Calcium 7.8 L (8.4-10.2) mg/dL Total Bilirubin 1.4 H (0.2-1.3) mg/dL AST 114 H (17-59) U/L ALT 62 H (4-49) U/L Alkaline Phosphatase 135 H (38-126) U/L Total Protein 6.5 (6.3-8.2) g/dL Albumin 2.5 L (3.5-5.0) g/dL Lipase 90 (23-300) U/L Critical Care Time Critical Care Time: Yes Total Critical Care Time: 31 Disposition Clinical Impression: Umbilical hernia, Ascites, Transaminitis, Anasarca, Liver disease, Alcohol abuse, Peritonitis Disposition: ADMITTED IP TO THIS HOSP Condition: Fair
[2020-09-07 05:30] LABS: INR 1.2 (<1.2); Partial Thromboplastin Time 28.9 sec (22.0-30.0); Prothrombin Time 12.3 sec (9.0-12.0)
[2020-09-07 05:43] LABS: ALT 59 U/L (4-49); AST 113 U/L (17-59); African American GFR (CKD) >90 (>60 ml/min/1.73 sqM); Albumin 2.3 g/dL (3.5-5.0); Albumin/Globulin Ratio 0.6; Alkaline Phosphatase 105 U/L (38-126); Anion Gap 3 mmol/L; Blood Urea Nitrogen 20 mg/dL (9-20); Calcium 7.5 mg/dL (8.4-10.2); Carbon Dioxide 23 mmol/L (22-30); Chloride 105 mmol/L (98-107); Glucose 108 mg/dL (74-99); Lipase 56 U/L (23-300); Non-African American GFR(CKD) >90 (>60 ml/min/1.73 sqM); Phosphorus 3.5 mg/dL (2.5-4.5); Potassium 4.7 mmol/L (3.5-5.1); Sodium 131 mmol/L (137-145); Total Bilirubin 2.2 mg/dL (0.2-1.3); Total Protein 6.3 g/dL (6.3-8.2)
[2020-09-07] MEDS ORDERED: SODIUM CHLORIDE 0.9% 1,000 ML IV ONE (05:46)
[2020-09-07] MEDS ORDERED: IPRATROPIUM-ALBUTEROL 3 ML NEB INHALATION PRN (07:12)
[2020-09-07] MEDS ORDERED: NOREPINEPHRINE 32 MG in SODIUM CHLORIDE 0.9% 218 ML IV ONE (07:30)
[2020-09-07 07:32] LABS: Basophils % (A) 0 %; Eosinophils # (A) 0.1 k/uL (0-0.7); Eosinophils % (A) 2 %; HCT 39.5 % (39.0-53.0); HGB 13.4 gm/dL (13.0-17.5); Lymphocytes # (A) 1.3 k/uL (1.0-4.8); Lymphocytes % (A) 22 %; MCH 34.8 pg (25.0-35.0); MCV 102.4 fL (80.0-100.0); Macrocytosis Slight; Mean Platelet Volume 7.1; Monocytes # (A) 0.8 k/uL (0-1.0); Monocytes % (A) 13 %; Neutrophils # (A) 3.5 k/uL (1.3-7.7); Neutrophils % (A) 60 %; Platelet Count 111 k/uL (150-450); RBC 3.85 m/uL (4.30-5.90); RDW 12.8 % (11.5-15.5); WBC 5.8 k/uL (3.8-10.6)
--- NOTE | 2020-09-07 08:18 | P.GSCN ---
History of Present Illness Consult date: 09/07/20 Reason for Consult: Umbilical hernia History of present illness: This a 65-year-old male who is admitted through the emergency room. Patient has a known history of occult cirrhosis. He has ascites. Patient has an umbilical hernia. There is evidence of skin necrosis with some ascitic fluid draining through the skin. Past Medical History Past Medical History: Hypertension, Liver Disease Additional Past Medical History / Comment(s): hep C History of Any Multi-Drug Resistant Organisms: None Reported Past Surgical History: Appendectomy Additional Past Surgical History / Comment(s): paracentesis, jaw Past Anesthesia/Blood Transfusion Reactions: No Reported Reaction Past Psychological History: No Psychological Hx Reported Smoking Status: Never smoker Past Alcohol Use History: Occasional Past Drug Use History: None Reported, Marijuana - Past Family History Mother Family Medical History: Unable to Obtain Additional Family Medical History / Comment(s): unknown Medications and Allergies Home Medications Medication Instructions Recorded Confirmed Type Potassium Chloride ER [K-Dur 20] 20 meq PO DAILY 90 Days #90 06/13/20 09/07/20 Rx tab.er.prt Thiamine [Vitamin B-1] 100 mg PO DAILY 90 Days #90 tab 06/13/20 09/07/20 Rx Cyanocobalamin [Vitamin B-12] 2,000 mcg PO DAILY tab 08/13/20 09/07/20 Rx Folic Acid 1 mg PO DAILY tab 08/13/20 09/07/20 Rx Furosemide [Lasix] 40 mg PO BID@0900,1600 tab 08/13/20 09/07/20 Rx Magnesium Oxide [Mag-Ox] 400 mg PO DAILY tab 08/13/20 09/07/20 Rx Tamsulosin [Flomax] 0.4 mg PO PC-SUPPER cap.er.24h 08/13/20 09/07/20 Rx Metoprolol Tartrate [Lopressor] 12.5 mg PO BID 09/07/20 09/07/20 History Spironolactone [Aldactone] 100 mg PO DAILY 09/07/20 09/07/20 History Allergies Allergy/AdvReac Type Severity Reaction Status Date / Time No Known Allergies Allergy Verified 09/07/20 08:00 Surgical - Exam Vital Signs Pulse Resp BP Pulse Ox 100 18 103/51 98 09/06/20 23:38 09/06/20 23:38 09/06/20 23:38 09/06/20 23:38 - General well developed, well nourished, no distress - Eyes PERRL - ENT normal pinna - Neck no masses - Respiratory normal expansion - Cardiovascular Rhythm: regular - Abdomen Abdomen: soft, non tender Hernia: umbilical (Evidence of skin necrosis. There is some drainage at the umbilicus.) Results - Labs 09/07/20 07:17 09/07/20 04:54 Abnormal Lab Results - Last 24 Hours (Table) 09/07/20 09/07/20 09/07/20 Range/Units 00:12 00:12 04:54 RBC 3.84 L (4.30-5.90) m/uL Hct 38.4 L (39.0-53.0) % MCV (80.0-100.0) fL Plt Count 118 L (150-450) k/uL Lymphocytes # 0.9 L (1.0-4.8) k/uL PT (9.0-12.0) sec INR (<1.2) Sodium 131 L 131 L (137-145) mmol/L BUN 23 H (9-20) mg/dL Glucose 106 H 108 H (74-99) mg/dL Calcium 7.8 L 7.5 L (8.4-10.2) mg/dL Total Bilirubin 1.4 H 2.2 H (0.2-1.3) mg/dL AST 114 H 113 H (17-59) U/L ALT 62 H 59 H (4-49) U/L Alkaline Phosphatase 135 H (38-126) U/L Albumin 2.5 L 2.3 L (3.5-5.0) g/dL 09/07/20 09/07/20 Range/Units 04:55 07:17 RBC 3.85 L (4.30-5.90) m/uL Hct (39.0-53.0) % MCV 102.4 H (80.0-100.0) fL Plt Count 111 L (150-450) k/uL Lymphocytes # (1.0-4.8) k/uL PT 12.3 H (9.0-12.0) sec INR 1.2 H (<1.2) Sodium (137-145) mmol/L BUN (9-20) mg/dL Glucose (74-99) mg/dL Calcium (8.4-10.2) mg/dL Total Bilirubin (0.2-1.3) mg/dL AST (17-59) U/L ALT (4-49) U/L Alkaline Phosphatase (38-126) U/L Albumin (3.5-5.0) g/dL Diabetes panel 09/07/20 09/07/20 Range/Units 00:12 04:54 Sodium 131 L 131 L (137-145) mmol/L Potassium 4.5 4.7 (3.5-5.1) mmol/L Chloride 105 105 (98-107) mmol/L Carbon Dioxide 22 23 (22-30) mmol/L BUN 23 H 20 (9-20) mg/dL Creatinine 0.97 0.87 (0.66-1.25) mg/dL Glucose 106 H 108 H (74-99) mg/dL Calcium 7.8 L 7.5 L (8.4-10.2) mg/dL AST 114 H 113 H (17-59) U/L ALT 62 H 59 H (4-49) U/L Alkaline Phosphatase 135 H 105 (38-126) U/L Total Protein 6.5 6.3 (6.3-8.2) g/dL Albumin 2.5 L 2.3 L (3.5-5.0) g/dL Calcium panel 09/07/20 09/07/20 Range/Units 00:12 04:54 Calcium 7.8 L 7.5 L (8.4-10.2) mg/dL Phosphorus 3.5 (2.5-4.5) mg/dL Albumin 2.5 L 2.3 L (3.5-5.0) g/dL Pituitary panel 09/07/20 09/07/20 Range/Units 00:12 04:54 Sodium 131 L 131 L (137-145) mmol/L Potassium 4.5 4.7 (3.5-5.1) mmol/L Chloride 105 105 (98-107) mmol/L Carbon Dioxide 22 23 (22-30) mmol/L BUN 23 H 20 (9-20) mg/dL Creatinine 0.97 0.87 (0.66-1.25) mg/dL Glucose 106 H 108 H (74-99) mg/dL Calcium 7.8 L 7.5 L (8.4-10.2) mg/dL Adrenal panel 09/07/20 09/07/20 Range/Units 00:12 04:54 Sodium 131 L 131 L (137-145) mmol/L Potassium 4.5 4.7 (3.5-5.1) mmol/L Chloride 105 105 (98-107) mmol/L Carbon Dioxide 22 23 (22-30) mmol/L BUN 23 H 20 (9-20) mg/dL Creatinine 0.97 0.87 (0.66-1.25) mg/dL Glucose 106 H 108 H (74-99) mg/dL Calcium 7.8 L 7.5 L (8.4-10.2) mg/dL Total Bilirubin 1.4 H 2.2 H (0.2-1.3) mg/dL AST 114 H 113 H (17-59) U/L ALT 62 H 59 H (4-49) U/L Alkaline Phosphatase 135 H 105 (38-126) U/L Total Protein 6.5 6.3 (6.3-8.2) g/dL Albumin 2.5 L 2.3 L (3.5-5.0) g/dL Assessment and Plan Assessment: History of a hole serosal ascites. Patient most likely had some skin necrosis due to tense ascites. At this point I recommend conservative therapy. Patient should be transferred to tertiary care center for possible TIPS procedure.
[2020-09-07] MEDS ORDERED: MORPHINE SULFATE 2 MG/ML SYRINGE IVP STA (08:45)
[2020-09-07] MEDS: AMPICILLIN-SULBACTAM 3 GM in SODIUM CHLORIDE 0.9% 100 ML IVPB SCH ×2 (08:59→16:22)
--- NOTE | 2020-09-07 10:44 | CONS ---
CONSULTATION PULMONARY/CRITICAL CARE CONSULTATION: DATE OF CONSULTATION: September 07, 2020 HISTORY OF PRESENT ILLNESS: This is a 65-year-old gentleman who was seen in the emergency department. He has a history of hepatitis C, alcoholic liver disease with alcoholic cirrhosis, ascites, and hypertension. He apparently came into the emergency room because of abdominal ascites. Apparently sometime prior to coming to the emergency department, there was leakage of the abdominal ascitic fluid from the umbilicus. He did have an umbilical hernia. The patient subsequent to that, became hypotensive. A central line was placed by the ER physician and he was started on norepinephrine at 0.05 mcg/kg per minute. He was confused. He was on room air. The patient apparently was also seen by surgery, Dr. Vance who thought the patient might benefit from a transjugular intrahepatic portosystemic shunt or a TIPS procedure. Hence, there was some recommendations that the patient should be transferred to [facility] for their evaluation. The patient denied any respiratory difficulty or distress. He was in chronic pain. The pain primarily was muscular in origin, although he did have abdominal discomfort as well. He denied any shortness of breath. There was no nausea or vomiting or diarrhea. ALLERGIES: Denied. HOME MEDICATIONS: Include thiamine Flomax Aldactone, potassium, metoprolol, Mag Ox, Lasix, folic acid, and B12. PAST MEDICAL HISTORY: As mentioned includes hypertension, hepatitis C, alcoholic liver disease, alcoholic cirrhosis, chronic ascites and hypertension. The patient apparently has had a large volume paracentesis abdominis in the past. SOCIAL HISTORY: Apparently negative for tobacco use. He does use marijuana. He is a heavy drinker or was a heavy drinker. PAST SURGICAL HISTORY: Surgeries include appendectomy. REVIEW OF SYSTEMS: CONSTITUTIONAL: Weakness. NEUROLOGIC: Negative. HEENT negative. CARDIOVASCULAR negative. PULMONARY negative. GI: Abdominal distention, abdominal discomfort, ascites. : Negative. IMMUNOLOGIC: Negative. ENDOCRINOLOGICAL: Negative. DERMATOLOGIC: Negative. PHYSICAL EXAMINATION: VITAL SIGNS: Current vital signs. Temperature 97.8. Heart rate 75, respiratory rate 18, blood pressure 91/66, mean 74, room air saturation 98%. He appears in no acute distress. HEENT: Examination is grossly unremarkable. No oxygen. NECK: Supple. Full range of motion. CARDIOVASCULAR: Examination reveals regular rhythm and rate. S1, S2 normal. No S3, S4, murmur. Heart rate 75. LUNGS: Relatively clear breath sounds. A few scattered rhonchi. He does not take deep breaths. ABDOMEN: Distended. There is probably still some ascites within the abdominal cavity. He has an umbilical hernia. There is drainage from the umbilicus. EXTREMITIES are intact. Mild edema. No cyanosis or clubbing. SKIN: Without rash. NEUROLOGIC: Examination is nonfocal. LAB DATA: Reviewed. White count 5.8, hemoglobin 13.4, hematocrit 39.5, platelet count 111,000. PT 12.3, INR 1.2, PTT is 28.9. Sodium 131, potassium 4.7, chloride 105, CO2 23, anion gap 3, BUN 20, creatinine 0.87. AST 113, ALT 59, albumin 2.3. No chest x-ray. CT of the abdomen and pelvis shows abdominal ascites, splenomegaly, and abdominal varices consistent or suggestive of portal venous hypertension. ASSESSMENT: 1. Massive ascites, secondary to chronic liver disease from both alcoholic cirrhosis and hepatitis C. 2. Previous history of large volume paracentesis. 3. History of hepatitis C. 4. Alcoholic liver disease. 5. Rule out rule out sepsis. 6. Hypertension by history. 7. History of ongoing heavy alcohol abuse. PLAN: The patient was evaluated by myself and by surgery. The patient may be transferred to [facility] for consideration of a transjugular intrahepatic portosystemic shunt or TIPS procedure. Additional recommendations and suggestions are forthcoming. A central line was placed. The patient is currently on norepinephrine 0.05 mcg/kg per minute. He is not receiving any supplemental oxygen. We will follow as needed. MMODL / IJN: [id number] / MTDD
[2020-09-07] MEDS ORDERED: DEXTROSE 5% IN WATER 100 ML with AMIODARONE 150 MG IV ONE (10:47)
[2020-09-07 11:35] LABS: Glucose,Whole Blood 97 mg/dL (75-99)
[2020-09-07] MEDS: PANTOPRAZOLE 40 MG/10 ML VIAL IVP SCH (13:34)
--- NOTE | 2020-09-07 17:35 | ECHOF ---
Referral Reason:svt MEASUREMENTS -------- HEIGHT: 180.3 cm WEIGHT: 127.0 kg BP: 101/60 RVIDd: 3.0 cm (< 3.3) IVSd: 1.1 cm (0.6 - 1.1) LVIDd: 4.5 cm (3.9 - 5.3) LVPWd: 1.1 cm (0.6 - 1.1) IVSs: 1.5 cm LVIDs: 3.0 cm LVPWs: 1.6 cm LA Diam: 3.8 cm (2.7 - 3.8) Ao Diam: 4.2 cm (2.0 - 3.7) AV Cusp: 3.0 cm (1.5 - 2.6) MV EXCURSION: 26.725 mm (> 18.000) MV EF SLOPE: 88 mm/s (70 - 150) EPSS: 1.6 cm MV E Elmo: 0.84 m/s MV DecT: 248 ms MV A Elmo: 0.65 m/s MV E/A Ratio: 1.30 FINDINGS -------- Sinus rhythm. This was a technically adequate study. The left ventricular size is normal. There is borderline concentric left ventricular hypertrophy. Overall left ventricular systolic function is normal with, an EF between 55 - 60 %. The right ventricle is normal in size. The left atrium is normal in size. The right atrium is normal in size. Interatrial and interventricular septum intact. There is mild aortic valve sclerosis. Mild mitral annular calcification present. The tricuspid valve appears structurally normal. Unable to estimate RVSP due to inadequate TR jet s pectral doppler profile. Trace/mild (physiologic) pulmonic regurgitation. The aortic root is dilated measuring 4.2cm. IVC Not well visulized. There is no pericardial effusion. CONCLUSIONS -------- 1. The left ventricular size is normal. 2. There is borderline concentric left ventricular hypertrophy. 3. Overall left ventricular systolic function is normal with, an EF between 55 - 60 %. 4. There is mild aortic valve sclerosis. 5. Mild mitral annular calcification present. 6. Trace/mild (physiologic) pulmonic regurgitation. 7. The aortic root is dilated measuring 4.2cm. 8. There is no pericardial effusion. TRUCK HOP: Starla Zacarias RD
--- NOTE | 2020-09-07 19:20 | CONS ---
CONSULTATION Mr. Hendrickson is a 65-year-old male known history of alcoholic liver disease, has alcoholic cirrhosis, hepatitis C, ascites, hypertension, who presented with increased distention of his abdomen with leakage of abdominal ascitic fluid from his umbilicus. Cardiology consultation was requested because of episode of tachyarrhythmia. The patient denies any prior history of cardiac disease. He denies any history of myocardial infarction, angina pectoris. He was in the hospital recently and underwent thoracentesis. No cardiac workup was done at that time. The patient baseline rhythm is a sinus mechanism, but during the previous admission he had episode of supraventricular tachyarrhythmia. Today on presentation, he had a supraventricular tachyarrhythmia and he was given a bolus of IV amiodarone and converted back to sinus mechanism. He was hypotensive. He denies any chest pain. He has no change in his breathing. He denies any dizziness or palpitation. He is not aware of the arrhythmia. He was evaluated by Dr. Vance and recommendations were made to transfer the patient to [facility] to undergo a TIPS procedure for portal hypertension. MEDICATION: At home included tamsulosin, spironolactone 100 mg daily, potassium, metoprolol tartrate 12.5 mg twice a day, Lasix 40 mg twice a day, folic acid, and vitamin B12. REVIEW OF SYSTEMS: RESPIRATORY SYSTEM: He had dyspnea on exertion. No recent wheezing, cough. GI SYSTEM: He has abdominal pain and distention. He denies any recent GI bleeding. SYSTEM: No dysuria or hematuria. NERVOUS SYSTEM: No history of stroke or seizure. SOCIAL HISTORY: He had a prior history of alcoholism. According to him, he stopped 3 months ago. PHYSICAL EXAMINATION: 65-year-old male, alert, oriented, appears older than stated age. VITAL SIGNS: Blood pressure 101/60 with a heart rate in the 70s. His heart rate was up to the 140s earlier. HEAD: Normocephalic. EYES: With mild jaundice. NECK: No bruit appreciated. LUNGS: With decreased breath sounds at the bases. HEART: Regular rhythm S1, S2. No S3. No gallop appreciated. ABDOMEN: Distended. Positive bowel sounds. Umbilical hernia was noted with drainage from the umbilicus. EXTREMITIES: Chronic discoloration with decreased pulses and trace edema. LAB DATA: Lab data revealed a hemoglobin of 13.4, white blood cell of 5.8, BUN and creatinine 20 and 0.87. Sodium 131. His total bilirubin is 2.2. His AST 113, ALT of 59. His EKG shows supraventricular tachyarrhythmia at a rate of 139 with occasional PVCs. He had an abdominal CT scan and that showed abdominal ascites with splenomegaly and abdominal varices, consistent with the portal venous hypertension. There was also cholelithiasis. IMPRESSION: 1. Umbilical hernia with drainage of peritoneal fluid related to alcoholic cirrhosis and hepatitis C. 2. Supraventricular tachyarrhythmia, most likely exacerbated by the abdominal status. 3. History of alcoholism in the past. 4. Prior history of smoking. RECOMMENDATION: From the cardiac standpoint, I will obtain an echocardiogram. The patient is awaiting transfer to [facility]. I will restart him on his beta anne and otherwise will continue clinical observation. Thank you for this consult. Will follow with you. SUZY / DIMASN: [id number] /
--- NOTE | 2020-09-07 20:05 | CONS ---
CONSULTATION DATE OF SERVICE: 09/07/2020 REASON FOR CONSULTATION: Ascites. HISTORY OF PRESENT ILLNESS: The patient is a 65-year-old white male with history of chronic hep C, alcoholic liver disease with alcoholic cirrhosis of the liver and recurrent ascites with multiple hospitalizations here at [facility], presented to the emergency room complaining of pain around the umbilical hernia site, as well as leakage of fluid from the umbilicus. He was seen by Dr. Vance, who recommended conservative approach. In the emergency room, he did have CT of the abdomen and pelvis done that showed significant amount of ascites. Apparently, he was noted to be hypertensive in the emergency room and hence he was admitted to the intensive care unit and currently being monitored closely. The patient is complaining of abdominal distention. He was, in fact, scheduled for large-volume paracentesis on outpatient basis today. He has been having paracentesis every 3-4 weeks. He was seen by Dr. Vance and recommended transfer to [facility], which is in progress, for possible TIPS placement. He does complain of abdominal pain, mostly in the umbilical area. He reports no nausea, vomiting. No rectal bleeding or melena. He has been on Lasix 40 mg twice daily and Aldactone 100 mg daily on an outpatient basis. PAST MEDICAL HISTORY: Significant for hypertension, alcoholic liver disease, chronic hep C infection, which is unclear whether he was treated and refractory ascites requiring large-volume paracentesis on a frequent basis. MEDICATIONS: Medications at home include Flomax, thiamine, Aldactone, potassium, metoprolol, magnesium oxide, Lasix, folic acid, Aldactone, B12. ALLERGIES: None. SOCIAL HISTORY: History of heavy drinking, quit about 2 months ago. No smoking. PAST SURGICAL HISTORY: Appendectomy. REVIEW OF SYSTEMS: CARDIOPULMONARY: No chest pain. No shortness of breath. : No dysuria. No hematuria. MUSCULOSKELETAL: Unremarkable. SKIN: Unremarkable. ENDOCRINE: Unremarkable. PSYCHIATRIC: Unremarkable. ENT: Vision unremarkable. GI: As mentioned above. CONSTITUTIONAL: Weight gain, but no fever chills night sweats. PHYSICAL EXAMINATION: He appears comfortable. No apparent distress vital signs are stable. Blood pressure is 94/77, pulse rate 79, temperature 98. HEENT: Examination unremarkable. Conjunctivae pink. Sclerae anicteric. Oral cavity, no lesions. NECK: No JVD. CHEST: Was clear to auscultation. HEART: Regular rate and rhythm. ABDOMEN: Soft. It was distended. There was a 3 cm umbilical hernia noted with skin excoriation but no active fluid drainage noted. Free fluid noted in the abdomen. EXTREMITIES: Today, 2+ pedal edema. SKIN: No rashes. NEURO: He is alert and oriented x3. No focal deficits. LABS: WBC 4.9, hemoglobin 13, platelets 1 8. INR 1.2. Sodium was 131, potassium 4.5. CO2 and chloride are normal. BUN 23, creatinine 0.97, T-bilirubin 1.4, AST 114, ALT 62, alkaline phosphatase 135. Coronavirus PCR is negative. CT of the abdomen and pelvis done in the emergency room last night did show evidence of abdominal ascites, splenomegaly, some abdominal varices and cholelithiasis, as well as umbilical hernia. IMPRESSION: 1. Refractory ascites, needing large volume paracentesis every 2-3 weeks on an outpatient basis. His last one was done 4 weeks ago. He is maintained on Lasix 40 mg daily twice daily and Aldactone 100 mg daily on outpatient basis. Abdominal CT scan did show evidence of significant ascites. 2. Alcoholic liver disease with alcoholic cirrhosis of the liver with gradual decompensation. 3. Elevated LFTs and mild jaundice secondary to alcoholic liver disease. 4. History of heavy alcohol abuse, quit drinking about 2 months ago. 5. Mild hypertension, being watched closely. 6. Umbilical hernia with skin excoriation. Dr. Vance has been consulted for it. RECOMMENDATIONS: 1. Continue with current diuretic regimen, which is currently on hold because of hypertension, but that can be resumed tomorrow. 2. Low-salt diet. 3. Schedule him for large-volume paracentesis while in the hospital. 4. Patient is awaiting transfer to [facility] as recommended by the surgical team. 5. We will follow with you closely. Thank you for this consultation. MMODL / IJN: [id number] /
--- NOTE | 2020-09-07 21:12 | P.HPIM ---
History of Present Illness This is a pleasant 65 years old male with past medical history of hypertension, liver disease, hepatitis C Patient presents because of abdominal pain secondary to distention secondary to ascites, he is due for paracentesis tomorrow and his abdomen is distended. He denies any chest pain or dyspnea, no diarrhea or dysuria. Blood pressure is 88/57, heart rate 77, with a rate is 19, saturating 100% on room air CBC is unremarkable, INR is 1.2, sodium 131, creatinine normal 0.8, bilirubin is 2.2, AST is elevated to 113, ALT is elevated at 59, CT of the abdomen showing umbilical hernia, extensive subcutaneous edema around the abdomen, multiple ileus, abdominal ascites and splenomegaly with diuresis suggestive of portal venous hypertension For consult is pending, from 80 including surgery, GI, critical care team and cardiology Patient was started on levophed, normal saline and Unasyn Review of Systems CONSTITUTIONAL: No fever, no malaise, no fatigue. HEENT: No recent visual problems or hearing problems. Denied any sore throat. CARDIOVASCULAR: No orthopnea, PND, no palpitations, no syncope. PULMONARY: No shortness of breath, no cough, no hemoptysis. GASTROINTESTINAL: No diarrhea, no nausea, no vomiting, no abdominal pain. Normoactive bowel sounds. NEUROLOGICAL: No headaches, no weakness, no numbness. HEMATOLOGICAL: Denies any bleeding or petechiae. GENITOURINARY: Denies any burning micturition, frequency, or urgency. MUSCULOSKELETAL/RHEUMATOLOGICAL: Denies any joint pain, swelling, or any muscle pain. ENDOCRINE: Denies any polyuria or polydipsia. Past Medical History Past Medical History: Hypertension, Liver Disease Additional Past Medical History / Comment(s): hep C History of Any Multi-Drug Resistant Organisms: None Reported Past Surgical History: Appendectomy Additional Past Surgical History / Comment(s): paracentesis, jaw Past Anesthesia/Blood Transfusion Reactions: No Reported Reaction Past Psychological History: No Psychological Hx Reported Smoking Status: Never smoker Past Alcohol Use History: Occasional Past Drug Use History: None Reported, Marijuana - Past Family History Mother Family Medical History: Unable to Obtain Additional Family Medical History / Comment(s): unknown Medications and Allergies Home Medications Medication Instructions Recorded Confirmed Type Potassium Chloride ER [K-Dur 20] 20 meq PO DAILY 90 Days #90 06/13/20 09/07/20 Rx tab.er.prt Thiamine [Vitamin B-1] 100 mg PO DAILY 90 Days #90 tab 06/13/20 09/07/20 Rx Cyanocobalamin [Vitamin B-12] 2,000 mcg PO DAILY tab 08/13/20 09/07/20 Rx Folic Acid 1 mg PO DAILY tab 08/13/20 09/07/20 Rx Furosemide [Lasix] 40 mg PO BID@0900,1600 tab 08/13/20 09/07/20 Rx Magnesium Oxide [Mag-Ox] 400 mg PO DAILY tab 08/13/20 09/07/20 Rx Tamsulosin [Flomax] 0.4 mg PO PC-SUPPER cap.er.24h 08/13/20 09/07/20 Rx Metoprolol Tartrate [Lopressor] 12.5 mg PO BID 09/07/20 09/07/20 History Spironolactone [Aldactone] 100 mg PO DAILY 09/07/20 09/07/20 History Allergies Allergy/AdvReac Type Severity Reaction Status Date / Time No Known Allergies Allergy Verified 09/07/20 08:00 Physical Exam Vitals: Vital Signs Temp Pulse Resp BP Pulse Ox 09/07/20 07:28 77 19 88/57 100 09/07/20 07:08 77 15 77/53 95 09/07/20 06:26 79 16 98/63 09/07/20 06:24 97.8 F 76 16 86/61 97 09/07/20 06:17 135 H 16 83/62 99 09/07/20 05:50 137 H 15 74/54 99 09/07/20 05:09 141 H 16 103/75 96 09/07/20 02:00 88 16 101/63 97 09/07/20 01:48 98.2 F 92 16 112/61 96 09/06/20 23:38 100 18 103/51 98 Intake and Output 09/06/20 09/07/20 09/07/20 22:59 06:59 14:59 Other: Weight 127.006 kg GENERAL: The patient is alert and oriented x3, not in any acute distress. Well developed, well nourished. HEENT: Pupils are round and equally reacting to light. EOMI. No scleral icterus. No conjunctival pallor. Normocephalic, atraumatic. No pharyngeal erythema. No thyromegaly. CARDIOVASCULAR: S1 and S2 present. No murmurs, rubs, or gallops. PULMONARY: Chest is clear to auscultation, no wheezing or crackles. ABDOMEN: Soft, nontender, nondistended, normoactive bowel sounds. No palpable organomegaly. MUSCULOSKELETAL: No joint swelling or deformity. EXTREMITIES: No cyanosis, clubbing, or pedal edema. NEUROLOGICAL: Gross neurological examination did not reveal any focal deficits. SKIN: No rashes. No petechiae Results CBC & Chem 7: 09/07/20 07:17 09/07/20 04:54 Labs: Abnormal Lab Results - Last 24 Hours (Table) 09/07/20 09/07/20 09/07/20 Range/Units 00:12 00:12 04:54 RBC 3.84 L (4.30-5.90) m/uL Hct 38.4 L (39.0-53.0) % MCV (80.0-100.0) fL Plt Count 118 L (150-450) k/uL Lymphocytes # 0.9 L (1.0-4.8) k/uL PT (9.0-12.0) sec INR (<1.2) Sodium 131 L 131 L (137-145) mmol/L BUN 23 H (9-20) mg/dL Glucose 106 H 108 H (74-99) mg/dL Calcium 7.8 L 7.5 L (8.4-10.2) mg/dL Total Bilirubin 1.4 H 2.2 H (0.2-1.3) mg/dL AST 114 H 113 H (17-59) U/L ALT 62 H 59 H (4-49) U/L Alkaline Phosphatase 135 H (38-126) U/L Albumin 2.5 L 2.3 L (3.5-5.0) g/dL 09/07/20 09/07/20 Range/Units 04:55 07:17 RBC 3.85 L (4.30-5.90) m/uL Hct (39.0-53.0) % MCV 102.4 H (80.0-100.0) fL Plt Count 111 L (150-450) k/uL Lymphocytes # (1.0-4.8) k/uL PT 12.3 H (9.0-12.0) sec INR 1.2 H (<1.2) Sodium (137-145) mmol/L BUN (9-20) mg/dL Glucose (74-99) mg/dL Calcium (8.4-10.2) mg/dL Total Bilirubin (0.2-1.3) mg/dL AST (17-59) U/L ALT (4-49) U/L Alkaline Phosphatase (38-126) U/L Albumin (3.5-5.0) g/dL Assessment and Plan Assessment: Umbilical hernia, with ascitis fluid leak from lower umbilical ulcer Abdominal ascites secondary to liver cirrhosis hypotension with shock , rule out infection although less likely Liver cirrhosis, decompensated Hepatitis C Hypertension Plan: This is a pleasant 65 years old male, presents with abdominal hernia secondary to ascites from his liver cirrhosis. Possible Sepsis Continue with Unasyn, continue with pressors Levophed while monitoring the ICU, monitor blood pressure. Paracentesis in the a.m. Several consultants of the case including the critical care, park landscape architect, tie tamper and surgery teams Continue with antibiotic Unasyn Plan to be transferred to [facility] for possible TIPS proc edure Labs and medication were reviewed.. Continue same treatment. Continue with symptomatic treatment. Resume home medication. Monitor lytes and vitals. DVT and GI prophylaxis. Further recommendations depends on the clinical course of the patient DVT prophylaxis: Subcutaneous heparin GI Prophylaxis: Pepcid Prognosis is guarded
[2020-09-07] MEDS: METOPROLOL TARTRATE 25 MG TAB PO SCH (21:14)
[2020-09-08] MEDS: AMPICILLIN-SULBACTAM 3 GM in SODIUM CHLORIDE 0.9% 100 ML IVPB SCH ×3 (00:43→15:58)
[2020-09-08] MEDS: HYDROmorphone 0.5 MG/0.5 ML SYRINGE IVP PRN ×5 (00:44→22:45)
--- NOTE | 2020-09-08 04:45 | XR ---
EXAMINATION TYPE: XR chest 1V portable DATE OF EXAM: 09/08/2020 COMPARISON: 08/08/2020 HISTORY: Line placement TECHNIQUE: Single view FINDINGS: There is right jugular catheter with tip in the superior vena cava. Lungs are clear of cons olidation. There is some mild atelectasis right lung base. There is no heart failure. There are chest leads. There is significant arthritic disease in the left shoulder. There is old healed fracture lef t and right clavicle. Old left-sided rib fractures. IMPRESSION: There is some mild atelectasis right lung base without change.
[2020-09-08 05:13] LABS: Basophils # (A) 0.1 k/uL (0-0.2); Basophils % (A) 1 %; Eosinophils # (A) 0.4 k/uL (0-0.7); Eosinophils % (A) 6 %; HCT 42.8 % (39.0-53.0); HGB 14.9 gm/dL (13.0-17.5); Lymphocytes # (A) 1.8 k/uL (1.0-4.8); Lymphocytes % (A) 24 %; MCH 35.3 pg (25.0-35.0); MCHC 34.7 g/dL (31.0-37.0); MCV 101.7 fL (80.0-100.0); Macrocytosis Slight; Mean Platelet Volume 6.8; Monocytes # (A) 0.7 k/uL (0-1.0); Monocytes % (A) 9 %; Neutrophils # (A) 4.1 k/uL (1.3-7.7); Neutrophils % (A) 57 %; Platelet Count 142 k/uL (150-450); RBC 4.21 m/uL (4.30-5.90); RDW 13.6 % (11.5-15.5); WBC 7.2 k/uL (3.8-10.6)
[2020-09-08 05:33] LABS: ALT 75 U/L (4-49); AST 142 U/L (17-59); African American GFR (CKD) >90 (>60 ml/min/1.73 sqM); Albumin 2.2 g/dL (3.5-5.0); Alkaline Phosphatase 82 U/L (38-126); Anion Gap 4 mmol/L; Blood Urea Nitrogen 15 mg/dL (9-20); Calcium 7.3 mg/dL (8.4-10.2); Carbon Dioxide 19 mmol/L (22-30); Chloride 107 mmol/L (98-107); Glucose 99 mg/dL (74-99); Non-African American GFR(CKD) >90 (>60 ml/min/1.73 sqM); Potassium 4.9 mmol/L (3.5-5.1); Sodium 130 mmol/L (137-145); Total Bilirubin 2.5 mg/dL (0.2-1.3); Total Protein 6.1 g/dL (6.3-8.2)
--- NOTE | 2020-09-08 07:56 | PN ---
PROGRESS NOTE Mr. Hendrickson is a 65-year-old male with history of alcoholic cirrhosis, hepatitis C, portal hypertension, who presented with umbilical pain with leakage from the umbilicus. The patient had supraventricular tachyarrhythmia. He continues to be in sinus mechanism at this time. He continues to have abdominal discomfort. He has no chest discomfort. His breathing has been stable. He has no dizziness. The patient has been accepted to be transferred to [facility], awaiting a bed. He continues to be at this time on Unasyn, metoprolol tartrate 25 mg twice a day, Protonix. PHYSICAL EXAMINATION: VITAL SIGNS: Blood pressure running in the 100s with a heart in 70s. LUNGS: With decreased breath sounds at the bases, no wheezes. HEART: Regular rate and rhythm S1, S2. No S3. No rub. ABDOMEN: Soft, distended, mild tenderness. EXTREMITIES: Chronic skin changes with trace edema. LAB DATA: BUN and creatinine 15 and 0.62. His AST is 142, ALT is 75. His total bilirubin is 2.5. IMPRESSION: 1. Hepatitis with liver failure and history of cirrhosis and alcoholism. 2. History of portal hypertension. 3. Supraventricular tachyarrhythmia, stable. 4. History of alcoholism. 5. Prior history of smoking. RECOMMENDATION: I will initiate the treatment with Aldactone. He had an echocardiogram performed yesterday that revealed preserved left ventricular size and systolic function with no significant valvular disease. His pulmonary pressure could not be evaluated. We will await the transferred to [facility] for further treatment of his ascites and liver failure. MMODL / IJN: [id number] /
[2020-09-08] MEDS: METOPROLOL TARTRATE 25 MG TAB PO SCH ×2 (09:01→21:07)
[2020-09-08] MEDS: NOREPINEPHRINE 32 MG in SODIUM CHLORIDE 0.9% 218 ML IV SCH (09:01)
[2020-09-08] MEDS: SODIUM CHLORIDE 0.9% 1,000 ML IV SCH ×2 (09:02→18:20)
[2020-09-08] MEDS: PANTOPRAZOLE 40 MG/10 ML VIAL IVP SCH (09:02)
[2020-09-08] MEDS: SPIRONOLACTONE 25 MG TAB PO SCH (09:02)
--- NOTE | 2020-09-08 10:02 | P.PN ---
Subjective Progress Note Date: 09/08/20 Principal diagnosis: Massive ascites. Progress note dated 09/08/2020. 65-year-old male, seen in the emergency department yesterday in consultation. The patient has a history of hepatitis C, alcoholic liver disease with alcoholic cirrhosis, massive ascites, and hypertension. The patient came into the emergency room with abdominal distention and ascites, and apparently, with leaking ascitic fluid from his umbilicus. The patient was ultimately found to be hypotensive, a central line was placed by the ER physician, and the patient was started on norepinephrine. The patient was seen by surgery, who suggested patient be transferred to [facility] for a transjugular intrahepatic portosystemic shunt TIPS procedure. Currently, the patient is awaiting transfer in our intensive care unit. The patient is on room air. The patient's getting saline at 75 mL an hour. The patient is currently on norepinephrine at 6.7 mcg/m. The patient did have a paracentesis yesterday and 2.8 L was removed. The patient was placed on Unasyn empirically for bacterial peritonitis. White count 7.2, hemoglobin 14.9, hematocrit 42.8, platelet count 142,000. Sodium 1:30, potassium 4.9, chlorides 107, CO2 19, anion gap 4, BUN 15, with a creatinine 0.62. Bilirubin is 2.5, AST is 142, and ALT is 75. Chest x-ray shows some mild atelectasis at the right lung base. Objective - Vital Signs Vital signs: Vital Signs Temp 98.3 F 09/08/20 08:00 Pulse 79 09/08/20 08:00 Resp 20 09/08/20 08:00 BP 91/66 09/08/20 08:00 Pulse Ox 95 09/08/20 08:00 Intake & Output 09/07/20 09/08/20 09/08/20 18:59 06:59 18:59 Intake Total 2224.201 1404.77 675 Output Total 4100 1025 0 Balance -1875.799 379.77 675 Weight 127.006 kg 95.6 kg Intake: IV 600 975 75 Sodium Chloride 0.9% 1, 600 975 75 000 ml @ 75 mls/hr IV . [id number] [facility] Rx#:[id number] Intake, IV Titration 124.201 29.77 Amount Dextrose 5% in Water 100 100 ml @ 618 mls/hr IV .Q10M ONE with Amiodarone 150 mg Rx#:[id number] Norepinephrine 32 mg In 24.201 29.77 Sodium Chloride 0.9% 218 ml @ 0.05 MCG/KG/MIN 2. 977 mls/hr IV .Q24H [facility] Rx#:[id number] Oral 1500 400 600 Output: Urine 1300 1025 0 Other 2800 - Exam No acute distress, oriented 3. Currently not on any supplemental oxygen. HEENT examination is grossly unremarkable. Neck supple. Full range of motion. No adenopathy thyromegaly or neck vein distention. Cardiovascular examination reveals regular rhythm rate. S1-S2 normal. No S3 or S4. No discernible murmur noted. Heart rate is 79 bpm. Heart sounds are distant. Lungs reveal mostly clear breath sounds. Scattered rhonchi are noted. No wheezes or crackles. Abdomen distended, with an obvious reducible umbilicus hernia. There is some ulceration about the umbilicus hernia. There is leaking ascitic fluid noted. Dressing is noted over the area of the paracentesis abdominis from yesterday. Extremities are intact. No cyanosis or clubbing. Mild lower extremity edema noted. Skin reveals some mild jaundice. Neurologic examination is brief but nonfocal. - Labs CBC & Chem 7: 09/08/20 04:42 09/08/20 04:42 Labs: Abnormal Lab Results - Last 24 Hours (Table) 09/08/20 09/08/20 Range/Units 04:42 04:42 RBC 4.21 L (4.30-5.90) m/uL MCV 101.7 H (80.0-100.0) fL MCH 35.3 H (25.0-35.0) pg Plt Count 142 L (150-450) k/uL Sodium 130 L (137-145) mmol/L Carbon Dioxide 19 L (22-30) mmol/L Creatinine 0.62 L (0.66-1.25) mg/dL Calcium 7.3 L (8.4-10.2) mg/dL Total Bilirubin 2.5 H (0.2-1.3) mg/dL AST 142 H (17-59) U/L ALT 75 H (4-49) U/L Total Protein 6.1 L (6.3-8.2) g/dL Albumin 2.2 L (3.5-5.0) g/dL Assessment and Plan Assessment: Massive ascites, secondary to chronic liver disease from both alcoholic ci rrhosis and hepatitis C. Previous history of large volume paracentesis, with repeat paracentesis ab dominis on September 07, and removal of 2.8 L. History of hepatitis C. Alcoholic liver disease. Rule out sepsis, and specifically, bacterial peritonitis. History of hypertension. History of ongoing heavy alcohol abuse. Umbilicus hernia. Plan: Plan dated 09/08/2020. The patient remains on norepinephrine to a central line. He is on 6.7 mcg/m. The patient has been accepted over at [facility], and will be considered for a transjugular intrahepatic portosystemic shunt. The patient did have a paracentesis abdominis yesterday. Was done by GI. 2.8 L was removed. The patient is empirically on Unasyn. Additional recommendations and suggestions are forthcoming. Prognosis is poor. The patient continues to drink alcohol. He apparently does not have a family doctor. Time with Patient: Greater than 30
--- NOTE | 2020-09-08 12:03 | P.PN ---
Progress Note - Text Progress Note Date: 09/08/20 Patient is sleeping his bed. He denies any significant abdominal pain. On exam vital signs appear stable. Abdomen soft. Umbilical hernia stable. Patient will continue receive supportive care.
--- NOTE | 2020-09-08 12:40 | P.PN ---
Subjective This is a pleasant 65 years old male with past medical history of hypertension, liver disease, hepatitis C Patient presents because of abdominal pain secondary to distention secondary to ascites, he is due for paracentesis tomorrow and his abdomen is distended. He denies any chest pain or dyspnea, no diarrhea or dysuria. Blood pressure is 88/57, heart rate 77, with a rate is 19, saturating 100% on room air CBC is unremarkable, INR is 1.2, sodium 131, creatinine normal 0.8, bilirubin is 2.2, AST is elevated to 113, ALT is elevated at 59, CT of the abdomen showing umbilical hernia, extensive subcutaneous edema around the abdomen, multiple ileus, abdominal ascites and splenomegaly with diuresis suggestive of portal venous hypertension For consult is pending, from 80 including surgery, GI, critical care team and cardiology Patient was started on levophed, normal saline and Unasyn 09/08/2020 Troponin remains in the ICU, he is awake and alert, is complaining of from some mild abdominal pain and tenderness around the umbilical hernia which is about 1 inch to 2 inches in diameter, no significant leakage from his umbilicus today However he has puncture wound in the right mid abdomen from his paracentesis done yesterday was 2.8 L taken out. There is back on tenderness with few milliliters of peritoneal fluid leaking into the bag. Physical sent the fluid for culture and sensitivity Patient blood pressure baseline the low side 96/66 and he is on Levothroid 0.06 empirically on Unasyn for possible sepsis. Labs reviewed and they're unremarkable His echocardiogram showed ejection fraction of 55-60%. Cardiology saw the case was admitted metoprolol 25 mg twice a day and Aldactone 50 mg daily. He is also normal saline 75 mL/h patient got accepted to [facility] pending bed availability Review of Systems CONSTITUTIONAL: No fever, no malaise, no fatigue. HEENT: No recent visual problems or hearing problems. Denied any sore throat. CARDIOVASCULAR: No orthopnea, PND, no palpitations, no syncope. PULMONARY: No shortness of breath, no cough, no hemoptysis. GASTROINTESTINAL: No diarrhea, no nausea, no vomiting, Active Medications Generic Name Dose Route Start Last Admin Trade Name Freq PRN Reason Stop Dose Admin Albuterol/Ipratropium 3 ml 09/07/20 07:12 Ipratropium-Albuterol 3 Ml Neb INHALATION RT-Q4H PRN Shortness Of Breath Or Wheezing Hydromorphone HCl 0.5 mg 09/07/20 02:07 09/08/20 08:04 Hydromorphone 0.5 Mg/0.5 Ml Syringe IVP 0.5 mg Q3HR PRN Administration Moderate Pain Sodium Chloride 1,000 mls @ 75 mls/hr 09/07/20 02:15 09/08/20 09:02 Saline 0.9% IV 75 mls/hr .[id number] [facility] Administration Ampicillin Sodium/Sulbactam 100 mls @ 200 mls/hr 09/07/20 08:00 09/08/20 09:09 Sodium 3 gm/ Sodium Chloride IVPB 200 mls/hr Q8HR [facility] Administration Norepinephrine Bitartrate 32 250 mls @ 2.241 mls/hr 09/08/20 08:15 09/08/20 09:01 mg/ Sodium Chloride IV 0.07 mcg/kg/min .Q24H [facility] 3.137 mls/hr Administration Protocol 0.05 MCG/KG/MIN Lorazepam 0.5 mg 09/07/20 02:07 Lorazepam 2 Mg/Ml Inj IV Q6HR PRN Anxiety Metoprolol Tartrate 25 mg 09/07/20 21:00 09/08/20 09:01 Metoprolol Tartrate 25 Mg Tab PO 25 mg BID [facility] Administration Naloxone HCl 0.2 mg 09/07/20 02:07 Naloxone 0.4 Mg/Ml 1 Ml Vial IV Q2M PRN Opioid Reversal Ondansetron HCl 4 mg 09/07/20 02:07 Ondansetron 4 Mg/2 Ml Vial IVP Q8HR PRN Nausea And Vomiting Pantoprazole Sodium 40 mg 09/07/20 13:00 09/08/20 09:02 Pantoprazole 40 Mg/10 Ml Vial IVP 40 mg DAILY [facility] Administration Spironolactone 50 mg 09/08/20 09:00 09/08/20 09:02 Spironolactone 25 Mg Tab PO 50 mg DAILY [facility] Administration Objective - Vital Signs Vital signs: Vital Signs Temp 98.3 F 09/08/20 08:00 Pulse 66 09/08/20 11:30 Resp 20 09/08/20 11:39 BP 96/66 09/08/20 11:30 Pulse Ox 95 09/08/20 11:30 Intake & Output 09/07/20 09/08/20 09/08/20 18:59 06:59 18:59 Intake Total 2224.201 1404.77 1000 Output Total 4100 1025 300 Balance -1875.799 379.77 700 Weight 127.006 kg 95.6 kg Intake: IV 600 975 300 Sodium Chloride 0.9% 1, 600 975 300 000 ml @ 75 mls/hr IV . [id number] [facility] Rx#:[id number] Intake, IV Titration 124.201 29.77 100 Amount Ampicillin-Sulbactam 3 gm 100 In Sodium Chloride 0.9% 100 ml @ 200 mls/hr IVPB Q8HR [facility] Rx#:[id number] Dextrose 5% in Water 100 100 ml @ 618 mls/hr IV .Q10M ONE with Amiodarone 150 mg Rx#:[id number] Norepinephrine 32 mg In 24. 29.77 Sodium Chloride 0.9% 218 ml @ 0.05 MCG/KG/MIN 2. 977 mls/hr IV .Q24H [facility] Rx#:[id number] Oral 1500 400 600 Output: Urine 1300 1025 300 Other 2800 - Exam GENERAL: The patient is alert and oriented x3, not in any acute distress. Well developed, well nourished. HEENT: Pupils are round and equally reacting to light. EOMI. No scleral icterus. No conjunctival pallor. Normocephalic, atraumatic. No pharyngeal erythema. No thyromegaly. CARDIOVASCULAR: S1 and S2 present. No murmurs, rubs, or gallops. PULMONARY: Chest is clear to auscultation, no wheezing or crackles. -ABDOMEN: Soft, nontender, nondistended, normoactive bowel sounds. No palpable organomegaly. Umbilical hernia with small lower ulcer, with mild leaking of peritoneal fluid. I admitted abdominal puncture wound with a few millimeter of leaking peritoneal fluid as well MUSCULOSKELETAL: No joint swelling or deformity. EXTREMITIES: No cyanosis, clubbing, or pedal edema. NEUROLOGICAL: Gross neurological examination did not reveal any focal deficits. SKIN: No rashes. no petechiae. - Labs CBC & Chem 7: 09/08/20 04:42 09/08/20 04:42 Labs: Abnormal Lab Results - Last 24 Hours (Table) 09/08/20 09/08/20 Range/Units 04:42 04:42 RBC 4.21 L (4.30-5.90) m/uL MCV 101.7 H (80.0-100.0) fL MCH 35.3 H (25.0-35.0) pg Plt Count 142 L (150-450) k/uL Sodium 130 L (137-145) mmol/L Carbon Dioxide 19 L (22-30) mmol/L Creatinine 0.62 L (0.66-1.25) mg/dL Calcium 7.3 L (8.4-10.2) mg/dL Total Bilirubin 2.5 H (0.2-1.3) mg/dL AST 142 H (17-59) U/L ALT 75 H (4-49) U/L Total Protein 6.1 L (6.3-8.2) g/dL Albumin 2.2 L (3.5-5.0) g/dL Assessment and Plan Assessment: Umbilical hernia, with ascitis fluid leak from lower umbilical ulcer Abdominal ascites secondary to liver cirrhosis hypotension with shock , rule out infection although less likely Liver cirrhosis, decompensated Hepatitis C Hypertension Plan: This is a pleasant 65 years old male, presents with abdominal hernia secondary to ascites from his liver cirrhosis. Possible Sepsis Continue with Unasyn, continue with pressors Levophed while monitoring the ICU, monitor blood pressure. Several consultants of the case including the critical care, transmission maintenance supervisor, mine geologist and surgery teams Continue with antibiotic Unasyn Plan to be transferred to [facility] for possible TIPS procedure Labs and medication were reviewed.. Continue same treatment. Continue with symptomatic treatment. Resume home medication. Monitor lytes and vitals. DVT and GI prophylaxis. Further recommendations depends on the clinical course of the patient DVT prophylaxis: Subcutaneous heparin GI Prophylaxis: Pepcid Prognosis is guarded
[2020-09-08] MEDS: LORazepam 2 MG/ML INJ IV PRN (21:07)
[2020-09-09] MEDS: AMPICILLIN-SULBACTAM 3 GM in SODIUM CHLORIDE 0.9% 100 ML IVPB SCH ×3 (00:59→17:00)
[2020-09-09] MEDS: HYDROmorphone 0.5 MG/0.5 ML SYRINGE IVP PRN ×5 (01:00→21:18)
[2020-09-09 04:17] LABS: Basophils # (A) 0.1 k/uL (0-0.2); Basophils % (A) 1 %; Eosinophils # (A) 0.4 k/uL (0-0.7); Eosinophils % (A) 5 %; HCT 44.4 % (39.0-53.0); HGB 15.2 gm/dL (13.0-17.5); Lymphocytes # (A) 1.6 k/uL (1.0-4.8); Lymphocytes % (A) 22 %; MCH 34.2 pg (25.0-35.0); MCHC 34.1 g/dL (31.0-37.0); MCV 100.1 fL (80.0-100.0); Monocytes # (A) 0.6 k/uL (0-1.0); Monocytes % (A) 8 %; Neutrophils # (A) 4.3 k/uL (1.3-7.7); Neutrophils % (A) 61 %; Platelet Count 152 k/uL (150-450); RBC 4.44 m/uL (4.30-5.90); RDW 13.2 % (11.5-15.5)
[2020-09-09 04:34] LABS: African American GFR (CKD) >90 (>60 ml/min/1.73 sqM); Anion Gap 3 mmol/L; Blood Urea Nitrogen 15 mg/dL (9-20); Calcium 7.2 mg/dL (8.4-10.2); Carbon Dioxide 21 mmol/L (22-30); Chloride 106 mmol/L (98-107); Glucose 106 mg/dL (74-99); Non-African American GFR(CKD) >90 (>60 ml/min/1.73 sqM); Potassium 4.8 mmol/L (3.5-5.1); Sodium 130 mmol/L (137-145)
[2020-09-09] MEDS: LORazepam 2 MG/ML INJ IV PRN (04:56)
[2020-09-09] MEDS: SODIUM CHLORIDE 0.9% 1,000 ML IV SCH ×2 (07:00→21:23)
--- NOTE | 2020-09-09 08:29 | PN ---
PROGRESS NOTE DATE OF SERVICE: 09/09/2020 INTERVAL HISTORY: The patient is a 65-year-old white male with alcoholic cirrhosis of the liver and refractory ascites requiring frequent paracentesis, admitted to the hospital because of leakage from the umbilicus. The patient underwent large-volume paracentesis on Thursday and 2.5 L of fluid was removed. Subsequently he did well. However, last night he started having significant amount of leakage from the umbilical area at the site of umbilical hernia and wound VAC was placed and there was approximately 200 cc in the last 4 hours. He also has some leakage at the site of the paracentesis in the right lower quadrant where he has a colostomy bag and there was approximately 250 cc in the last 12 hours. The patient has been complaining of some pain around the umbilical hernia site. He remains on Aldactone 50 mg daily. Remains on Levophed 5 mics a day. He reports no nausea, no vomiting. PHYSICAL EXAMINATION: GENERAL: He appears comfortable. VITAL SIGNS: Stable. Blood pressure is 110/86. Pulse rate 70, temperature 97.8. HEENT: Examination unremarkable. Conjunctivae are pink. Sclerae anicteric. Oral cavity no lesions. NECK: No JVD or lymph node enlargement. CHEST: Clear to auscultation. HEART: Regular rate and rhythm. ABDOMEN: Soft, it was large. There was a found VAC in place in the umbilical area. There was a colostomy bag in the right lower quadrant area. The rest of the abdomen was slightly distended and there was some free fluid noted. EXTREMITIES: No pedal edema noted. NEURO: He is alert and oriented x3. No focal deficits. LABS: WBC 7, hemoglobin 15, platelets normal. Basic metabolic panel is within normal limits. BUN is 15, creatinine 0.84, T-bilirubin is 2.5, AST 142, ALT 75. IMPRESSION: 1. Recurrent ascites secondary to portal hypertension from alcoholic cirrhosis of the liver. The patient has leakage from the umbilical hernia site. Dr. Vance is following the patient and he is not a candidate for surgery at the present time. He is status post large-volume paracentesis 2 days ago and 2.5 L of fluid was aspirated. He has some leakage at the site of paracentesis and has a colostomy bag and approximately 200 cc every 12 hours. Presently on Aldactone 50 mg daily. 2. Alcoholic cirrhosis of the liver. He quit drinking about 2 months ago. 3. Elevated liver function tests secondary to alcoholic liver disease. 4. Umbilical hernia. RECOMMENDATIONS: 1. Start on Lasix 40 mg twice daily. 2. Continue Aldactone 50 mg daily. 3. Low-salt diet. 4. Patient is awaiting transfer to [facility] for consideration of TIPS because of recurrent ascites and leakage from the umbilical hernia site. We will follow with you closely. Thank you for this consultation. MMKYLAHL / IJN: [id number] /
[2020-09-09] MEDS: MIDODRINE 5 MG TAB PO SCH ×3 (08:38→16:58)
[2020-09-09] MEDS: PANTOPRAZOLE 40 MG/10 ML VIAL IVP SCH (08:38)
[2020-09-09] MEDS: SPIRONOLACTONE 25 MG TAB PO SCH (08:38)
[2020-09-09] MEDS: NOREPINEPHRINE 4 MG in SODIUM CHLORIDE 0.9% 250 ML IV SCH (09:00)
[2020-09-09] MEDS ORDERED: FUROSEMIDE 40 MG TAB PO SCH (09:00)
--- NOTE | 2020-09-09 10:06 | PN ---
PROGRESS NOTE Mr. Hendrickson is a 65-year-old male with known history of liver cirrhosis, alcoholic hepatitis, who presented recently with drainage from umbilical hernia. He continues to have significant problem with abdominal discomfort. He denies any symptoms of chest discomfort. The denies any dizziness. He continues to be in sinus mechanism. He had quite a bit of drainage yesterday. He is awaiting transfer to [facility] for consideration of TIPS because of the recurrent disease. He continues to be on furosemide 40 mg twice a day, spironolactone 50 mg daily. He is on norepinephrine and midodrine. PHYSICAL EXAMINATION: Blood pressure running in the low 100s with a heart rate in 70s. Lungs with decreased air exchange. No wheezes. Heart regular rate and rhythm, S1, S2. No S3. No rub. Abdomen is soft and distended. Umbilical hernia noted with some redness. Extremities no significant edema. LAB DATA: Lab data revealed hemoglobin 15.2, BUN and creatinine 15 and 0.8. IMPRESSION: 1. Liver cirrhosis with alcoholic hepatitis in the past. 2. Recurrent ascites with umbilical hernia. 3. Status or portal hypertension. 4. History of supraventricular tachyarrhythmia, stable. 5. History of smoking and alcoholism. RECOMMENDATION: From the cardiac standpoint, he is stable. We will continue present therapy. We will see him on as-needed basis. He is awaiting to be transferred to [facility] for further treatment. Unfortunately, the prognosis is guarded. MMODL / IJN: [id number] /
--- NOTE | 2020-09-09 10:31 | P.PN ---
Progress Note - Text Progress Note Date: 09/09/20 Patient's abdomen soft. His umbilical hernia stable. No surgical intervention is planned at this point.
--- NOTE | 2020-09-09 10:39 | P.PN ---
Subjective Progress Note Date: 09/09/20 Principal diagnosis: Massive ascites. Progress note dated 09/08/2020. 65-year-old male, seen in the emergency department yesterday in consultation. The patient has a history of hepatitis C, alcoholic liver disease with alcoholic cirrhosis, massive ascites, and hypertension. The patient came into the emergency room with abdominal distention and ascites, and apparently, with leaking ascitic fluid from his umbilicus. The patient was ultimately found to be hypotensive, a central line was placed by the ER physician, and the patient was started on norepinephrine. The patient was seen by surgery, who suggested patient be transferred to [facility] for a transjugular intrahepatic portosystemic shunt TIPS procedure. Currently, the patient is awaiting transfer in our intensive care unit. The patient is on room air. The patient's getting saline at 75 mL an hour. The patient is currently on norepinephrine at 6.7 mcg/m. The patient did have a paracentesis yesterday and 2.8 L was removed. The patient was placed on Unasyn empirically for bacterial peritonitis. White count 7.2, hemoglobin 14.9, hematocrit 42.8, platelet count 142,000. Sodium 1:30, potassium 4.9, chlorides 107, CO2 19, anion gap 4, BUN 15, with a creatinine 0.62. Bilirubin is 2.5, AST is 142, and ALT is 75. Chest x-ray shows some mild atelectasis at the right lung base. Progress note dated 09/09/2020. 5-year-old male history of chronic liver disease, who was initially seen in the emergency department. He has a history of hepatitis C, alcoholic liver disease, and alcoholic cirrhosis, as well as hypertension, and massive ascites. The patient initially came into the emergency room, because he was leaking ascitic fluid from his umbilicus. He was seen by surgery team. They recommended transfer to [facility] for a transjugular intrahepatic portosystemic shunt or TIPS procedure. The patient has been accepted for transfer, but apparently there are no beds available. The patient's on room air. He is getting saline at 75 mL an hour. His norepinephrine is at 6 mcg/m. We will add some midodrine 10 mg 3 times a day to see if we can wean him off the norepinephrine. White count 7, he will been 15.2, hematocrit 44.4, platelet count 152,000. Sodium 1:30, potassium 4.8, chlorides 106, CO2 21, anion gap 3, BUN 15, and creatinine 0.81. Objective - Vital Signs Vital signs: Vital Signs Temp 97.8 F 09/09/20 04:00 Pulse 70 09/09/20 07:00 Resp 18 09/09/20 07:00 BP 107/67 09/09/20 07:00 Pulse Ox 94 L 09/09/20 07:00 Intake & Output 09/08/20 09/09/20 09/09/20 18:59 06:59 18:59 Intake Total 2134.359 1250 75 Output Total 1250 2750 250 Balance 884.359 -1500 -175 Intake: IV 825 900 75 Sodium Chloride 0.9% 1, 825 900 75 000 ml @ 75 mls/hr IV . [id number] [facility] Rx#:[id number] Intake, IV Titration 109.359 Amount Ampicillin-Sulbactam 3 gm 100 In Sodium Chloride 0.9% 100 ml @ 200 mls/hr IVPB Q8HR [facility] Rx#:[id number] Norepinephrine 32 mg In 9.359 Sodium Chloride 0.9% 218 ml @ 0.05 MCG/KG/MIN 2. 241 mls/hr IV .Q24H [facility] Rx#:[id number] Oral 1200 350 Output: Urine 1050 850 0 Other 200 1900 250 - Exam No acute distress, oriented 3. Currently not on any supplemental oxygen. Room air saturations are 94%. HEENT examination is grossly unremarkable. Neck supple. Full range of motion. No adenopathy thyromegaly or neck vein distention. Cardiovascular examination reveals regular rhythm rate. S1-S2 normal. No S3 or S4. No discernible murmur noted. Heart rate is 70 bpm. Heart sounds are distant. Lungs reveal mostly clear breath sounds. Scattered rhonchi are noted. No wheez es or crackles. Abdomen distended, with an obvious reducible umbilicus hernia. There is some ulceration about the umbilicus hernia. There is leaking ascitic fluid noted. Dressing is noted over the area of the paracentesis abdominis from yesterday. Extremities are intact. No cyanosis or clubbing. Mild lower extremity edema noted. Skin reveals some mild jaundice. Neurologic examination is brief but nonfocal. - Labs CBC & Chem 7: 09/09/20 03:45 09/09/20 03:45 Labs: Abnormal Lab Results - Last 24 Hours (Table) 09/09/20 09/09/20 Range/Units 03:45 03:45 MCV 100.1 H (80.0-100.0) fL Sodium 130 L (137-145) mmol/L Carbon Dioxide 21 L (22-30) mmol/L Glucose 106 H (74-99) mg/dL Calcium 7.2 L (8.4-10.2) mg/dL Microbiology - Last 24 Hours (Table) 09/08/20 10:40 Gram Stain - Preliminary Ascites Fluid Body Fluid Culture - Preliminary Assessment and Plan Assessment: Massive ascites, secondary to chronic liver disease from both alcoholic cirrhosis and hepatitis C. Previous history of large volume paracentesis, with repeat paracentesis abdominis on September 07, and removal of 2.8 L. History of hepatitis C. Alcoholic liver disease. Rule out sepsis, and specifically, bacterial peritonitis. History of hypertension. History of ongoing heavy alcohol abuse. Umbilical hernia. Plan: Plan dated 09/08/2020. The patient remains on norepinephrine to a central line. He is on 6.7 mcg/m. The patient has been accepted over at [facility], and will be considered for a transjugular intrahepatic portosystemic shunt. The patient did have a paracentesis abdominis yesterday. Was done by GI. 2.8 L was removed. The patient is empirically on Unasyn. Additional recommendations and suggestions are forthcoming. Prognosis is poor. The patient continues to drink alcohol. He apparently does not have a family doctor. Plan dated 09/09/2020. The patient is currently waiting transferred to [facility]. The patient continues on norepinephrine at 6 mcg/m. He was on 7 yesterday. We had midodrine to 10 mg 3 times a day, to see if we can wean him off the norepinephrine. In addition, we'll check a cortisol level, and a TSH. Currently, the patient's not requiring any supplemental oxygen. He accidentally pulled out his central line. A peripheral IV will be started. No additional recommendations are made. Prognosis is guarded. We will continue to follow make recommendations where appropriate. Time with Patient: Greater than 30
--- NOTE | 2020-09-09 10:48 | P.PN ---
Subjective This is a pleasant 65 years old male with past medical history of hypertension, liver disease, hepatitis C Patient presents because of abdominal pain secondary to distention secondary to ascites, he is due for paracentesis tomorrow and his abdomen is distended. He denies any chest pain or dyspnea, no diarrhea or dysuria. Blood pressure is 88/57, heart rate 77, with a rate is 19, saturating 100% on room air CBC is unremarkable, INR is 1.2, sodium 131, creatinine normal 0.8, bilirubin is 2.2, AST is elevated to 113, ALT is elevated at 59, CT of the abdomen showing umbilical hernia, extensive subcutaneous edema around the abdomen, multiple ileus, abdominal ascites and splenomegaly with diuresis suggestive of portal venous hypertension For consult is pending, from 80 including surgery, GI, critical care team and cardiology Patient was started on levophed, normal saline and Unasyn 09/08/2020 Troponin remains in the ICU, he is awake and alert, is complaining of from some mild abdominal pain and tenderness around the umbilical hernia which is about 1 inch to 2 inches in diameter, no significant leakage from his umbilicus today However he has puncture wound in the right mid abdomen from his paracentesis done yesterday was 2.8 L taken out. There is back on tenderness with few milliliters of peritoneal fluid leaking into the bag. Physical sent the fluid for culture and sensitivity Patient blood pressure baseline the low side 96/66 and he is on Levothroid 0.06 empirically on Unasyn for possible sepsis. Labs reviewed and they're unremarkable His echocardiogram showed ejection fraction of 55-60%. Cardiology saw the case was admitted metoprolol 25 mg twice a day and Aldactone 50 mg daily. He is also normal saline 75 mL/h patient got accepted to [facility] pending bed availability 09/09/2020 Patients in the ICU, fully awake and oriented, no abdominal pain. He still has leaking from his umbilicus and a catheter with vacuum is placed with about 2 L drained overnight. Right abdominal puncture wound from his paracentesis there is some peritoneal fluid leakage. Blood pressure is acceptable well he is on levophed, medodrain was added today. Vitals are unremarkable. Lasix 40 mg by mouth twice daily and Aldactone 50 mg daily added today. He is a still and Unasyn. And normal saline At 75 mL/h Review of Systems CONSTITUTIONAL: No fever, no malaise, no fatigue. HEENT: No recent visual problems or hearing problems. Denied any sore throat. CARDIOVASCULAR: No orthopnea, PND, no palpitations, no syncope. PULMONARY: No shortness of breath, no cough, no hemoptysis. GASTROINTESTINAL: No diarrhea, no nausea, no vomiting, Active Medications Generic Name Dose Route Start Last Admin Trade Name Freq PRN Reason Stop Dose Admin Albuterol/Ipratropium 3 ml 09/07/20 07:12 Ipratropium-Albuterol 3 Ml Neb INHALATION RT-Q4H PRN Shortness Of Breath Or Wheezing Furosemide 40 mg 09/09/20 09:00 09/09/20 08:38 Furosemide 40 Mg Tab PO 40 mg BID@0900,1600 [facility] Administration Hydromorphone HCl 0.5 mg 09/07/20 02:07 09/09/20 09:38 Hydromorphone 0.5 Mg/0.5 Ml Syringe IVP 0.5 mg Q3HR PRN Administration Moderate Pain Sodium Chloride 1,000 mls @ 75 mls/hr 09/07/20 02:15 09/08/20 18:20 Saline 0.9% IV Not Given .[id number] [facility] Ampicillin Sodium/Sulbactam 100 mls @ 200 mls/hr 09/07/20 08:00 09/09/20 08:38 Sodium 3 gm/ Sodium Chloride IVPB 200 mls/hr Q8HR [facility] Administration Norepinephrine Bitartrate 4 mg 254 mls @ 18.212 mls/hr 09/09/20 10:15 / Sodium Chloride IV .[id number] [facility] Protocol 0.05 MCG/KG/MIN Lorazepam 0.5 mg 09/07/20 02:07 09/09/20 04:56 Lorazepam 2 Mg/Ml Inj IV 0.5 mg Q6HR PRN Administration Anxiety Midodrine 5 mg 09/09/20 08:23 09/09/20 08:38 Midodrine 5 Mg Tab PO 5 mg AC-TID [facility] Administration Naloxone HCl 0.2 mg 09/07/20 02:07 Naloxone 0.4 Mg/Ml 1 Ml Vial IV Q2M PRN Opioid Reversal Ondansetron HCl 4 mg 09/07/20 02:07 Ondansetron 4 Mg/2 Ml Vial IVP Q8HR PRN Nausea And Vomiting Pantoprazole Sodium 40 mg 09/07/20 13:00 09/09/20 08:38 Pantoprazole 40 Mg/10 Ml Vial IVP 40 mg DAILY [facility] Administration Spironolactone 50 mg 09/08/20 09:00 09/09/20 08:38 Spironolactone 25 Mg Tab PO 50 mg DAILY [facility] Administration Objective - Vital Signs Vital signs: Vital Signs Temp 97.8 F 09/09/20 04:00 Pulse 70 09/09/20 07:00 Resp 18 09/09/20 07:00 BP 107/67 09/09/20 07:00 Pulse Ox 94 L 09/09/20 07:00 Intake & Output 09/08/20 09/09/20 09/09/20 18:59 06:59 18:59 Intake Total 2134.359 1250 75 Output Total 1250 2750 250 Balance 884.359 -1500 -175 Intake: IV 825 900 75 Sodium Chloride 0.9% 1, 825 900 75 000 ml @ 75 mls/hr IV . [id number] [facility] Rx#:[id number] Intake, IV Titration 109.359 Amount Ampicillin-Sulbactam 3 gm 100 In Sodium Chloride 0.9% 100 ml @ 200 mls/hr IVPB Q8HR [facility] Rx#:[id number] Norepinephrine 32 mg In 9.359 Sodium Chloride 0.9% 218 ml @ 0.05 MCG/KG/MIN 2. 241 mls/hr IV .Q24H [facility] Rx#:[id number] Oral 1200 350 Output: Urine 1050 850 0 Other 200 1900 250 - Exam GENERAL: The patient is alert and oriented x3, not in any acute distress. Well developed, well nourished. HEENT: Pupils are round and equally reacting to light. EOMI. No scleral icterus. No conjunctival pallor. Normocephalic, atraumatic. No pharyngeal erythema. No thyromegaly. CARDIOVASCULAR: S1 and S2 present. No murmurs, rubs, or gallops. PULMONARY: Chest is clear to auscultation, no wheezing or crackles. -ABDOMEN: Soft, nontender, nondistended, normoactive bowel sounds. No palpable organomegaly. Umbilical hernia with small lower ulcer, with mild leaking of peritoneal fluid. I admitted abdominal puncture wound with a few millimeter of leaking peritoneal fluid as well MUSCULOSKELETAL: No joint swelling or deformity. EXTREMITIES: No cyanosis, clubbing, or pedal edema. NEUROLOGICAL: Gross neurological examination did not reveal any focal deficits. SKIN: No rashes. no petechiae. - Labs CBC & Chem 7: 09/09/20 03:45 09/09/20 03:45 Labs: Abnormal Lab Results - Last 24 Hours (Table) 09/09/20 09/09/20 Range/Units 03:45 03:45 MCV 100.1 H (80.0-100.0) fL Sodium 130 L (137-145) mmol/L Carbon Dioxide 21 L (22-30) mmol/L Glucose 106 H (74-99) mg/dL Calcium 7.2 L (8.4-10.2) mg/dL Microbiology - Last 24 Hours (Table) 09/08/20 10:40 Gram Stain - Preliminary Ascites Fluid Body Fluid Culture - Preliminary Assessment and Plan Assessment: Umbilical hernia, with ascitis fluid leak from lower umbilical ulcer Abdominal ascites secondary to liver cirrhosis hypotension with shock , rule out infection although less likely Liver cirrhosis, decompensated Hepatitis C Hypertension Plan: This is a pleasant 65 years old male, presents with abdominal hernia secondary to ascites from his liver cirrhosis. Possible Sepsis Continue with Unasyn, continue with pressors Levophed while monitoring the ICU, monitor blood pressure. Several consultants of the case including the critical care, freight handler, projector booth operator and surgery teams Continue with antibiotic Unasyn Plan to be transferred to [facility] for possible TIPS procedure Labs and medication were reviewed.. Continue same treatment. Continue with symptomatic treatment. Resume home medication. Monitor lytes and vitals. DVT and GI prophylaxis. Further recommendations depends on the clinical course of the patient DVT prophylaxis: Subcutaneous heparin GI Prophylaxis: Pepcid Prognosis is guarded
[2020-09-10] MEDS: HYDROmorphone 0.5 MG/0.5 ML SYRINGE IVP PRN ×4 (00:52→18:35)
[2020-09-10] MEDS: AMPICILLIN-SULBACTAM 3 GM in SODIUM CHLORIDE 0.9% 100 ML IVPB SCH ×3 (00:53→16:34)
[2020-09-10] MEDS: LORazepam 2 MG/ML INJ IV PRN (02:14)
[2020-09-10 04:27] LABS: Basophils % (A) 1 %; Eosinophils # (A) 0.2 k/uL (0-0.7); Eosinophils % (A) 4 %; HCT 38.5 % (39.0-53.0); HGB 13.1 gm/dL (13.0-17.5); Lymphocytes # (A) 1.4 k/uL (1.0-4.8); Lymphocytes % (A) 28 %; MCH 33.8 pg (25.0-35.0); MCHC 34.1 g/dL (31.0-37.0); MCV 98.8 fL (80.0-100.0); Mean Platelet Volume 7.9; Monocytes # (A) 0.4 k/uL (0-1.0); Monocytes % (A) 9 %; Neutrophils # (A) 2.7 k/uL (1.3-7.7); Neutrophils % (A) 55 %; Platelet Count 115 k/uL (150-450); RDW 13.1 % (11.5-15.5)
[2020-09-10 05:05] LABS: ALT 80 U/L (4-49); AST 146 U/L (17-59); African American GFR (CKD) >90 (>60 ml/min/1.73 sqM); Alkaline Phosphatase 131 U/L (38-126); Anion Gap 3 mmol/L; Blood Urea Nitrogen 16 mg/dL (9-20); Calcium 7.3 mg/dL (8.4-10.2); Carbon Dioxide 22 mmol/L (22-30); Chloride 104 mmol/L (98-107); Glucose 88 mg/dL (74-99); Non-African American GFR(CKD) >90 (>60 ml/min/1.73 sqM); Potassium 4.4 mmol/L (3.5-5.1); Sodium 129 mmol/L (137-145); Total Bilirubin 1.2 mg/dL (0.2-1.3); Total Protein 5.6 g/dL (6.3-8.2)
[2020-09-10] MEDS: MIDODRINE 5 MG TAB PO SCH ×3 (07:06→16:34)
[2020-09-10] MEDS: NOREPINEPHRINE 4 MG in SODIUM CHLORIDE 0.9% 250 ML IV SCH (07:37)
[2020-09-10] MEDS: PANTOPRAZOLE 40 MG/10 ML VIAL IVP SCH (07:55)
[2020-09-10] MEDS: SPIRONOLACTONE 25 MG TAB PO SCH (07:55)
--- NOTE | 2020-09-10 09:18 | P.PN ---
Subjective Progress Note Date: 09/10/20 09/10/2020, the patient is being seen for a follow-up. The patient is a known case of alcoholic liver failure in combination with hepatitis C. The patient is known to have massive ascites with previous history of large volume paracentesis and the patient is currently being considered for transfer to [facility] for TIPS procedure. The patient is currently on pressors. He accidentally pulled out his central line. He is on low-dose norepinephrine infusion. He is also on medication. He is on room air oxygen. No significant respiratory distress. No altered mentation at this point in time. Renal function stable. The patient remains on empiric antibiotic coverage with IV Unasyn. The patient is also on Aldactone at a dose of 50 mg by mouth daily. IV fluids in the form of normal saline today to 75 mL an hour.. This morning, the patient is off pressors and been off pressors for the past 24 hours. The plan is still the same to transfer this patient to [facility] for a possible TIPS. He remains on room air oxygen. Mental status is adequate. Is tolerating diet. His blood work from today shows a sodium of 129, potassium of 4.4, BUN of 16 with a creatinine of 0.9, LFTs are slightly elevated, comparable to the earlier evaluation. White cell count from today is at 5.0 with a hemoglobin of 13.1. No other significant events. He does have a sitter at the bedside. He answers appropriately however at times is very impulsive and as mentioned earlier the pulled his central line out and he has peripheral lines for now. Objective - Vital Signs Vital signs: Vital Signs Temp 98.5 F 09/10/20 04:00 Pulse 94 09/10/20 08:00 Resp 27 H 09/10/20 08:00 BP 101/74 09/10/20 08:00 Pulse Ox 91 L 09/10/20 08:00 Intake & Output 09/09/20 09/10/20 09/10/20 18:59 06:59 18:59 Intake Total 1894.560 925 610 Output Total 1900 980 100 Balance -5.440 -55 510 Weight 95.254 kg 96.6 kg Intake: IV 900 925 250 Ampicillin-Sulbactam 3 gm 100 100 In Sodium Chloride 0.9% 100 ml @ 200 mls/hr IVPB Q8HR [facility] Rx#:[id number] Sodium Chloride 0.9% 1, 900 825 150 000 ml @ 75 mls/hr IV . [id number] [facility] Rx#:[id number] Intake, IV Titration 344.560 Amount Ampicillin-Sulbactam 3 gm 300 In Sodium Chloride 0.9% 100 ml @ 200 mls/hr IVPB Q8HR [facility] Rx#:[id number] Norepinephrine 4 mg In 44.560 Sodium Chloride 0.9% 250 ml @ 0.05 MCG/KG/MIN 18. 212 mls/hr IV .[id number] [facility] Rx#:[id number] Oral 650 360 Output: Urine 1550 930 100 Other 350 50 Other: Voiding Method Urinal Urinal - Exam No acute distress, oriented 3. Currently not on any supplemental oxygen. Room air saturations are 94%. HEENT examination is grossly unremarkable. Neck supple. Full range of motion. No adenopathy thyromegaly or neck vein distention. Cardiovascular examination reveals regular rhythm rate. S1-S2 normal. No S3 or S4. No discernible murmur noted. Heart rate is 70 bpm. Heart sounds are distant. Lungs reveal mostly clear breath sounds. Scattered rhonchi are noted. No wheezes or crackles. Abdomen distended, with an obvious reducible umbilicus hernia. There is some ulceration about the umbilicus hernia. There is leaking ascitic fluid noted. Dressing is noted over the area of the paracentesis abdominis from yesterday. Extremities are intact. No cyanosis or clubbing. Mild lower extremity edema noted. Skin reveals some mild jaundice. Neurologic examination is brief but nonfocal. - Labs CBC & Chem 7: 09/10/20 03:28 09/10/20 03:28 Labs: Abnormal Lab Results - Last 24 Hours (Table) 09/10/20 09/10/20 Range/Units 03:28 03:28 RBC 3.90 L (4.30-5.90) m/uL Hct 38.5 L (39.0-53.0) % Plt Count 115 L (150-450) k/uL Sodium 129 L (137-145) mmol/L Creatinine 0.65 L (0.66-1.25) mg/dL Calcium 7.3 L (8.4-10.2) mg/dL AST 146 H (17-59) U/L ALT 80 H (4-49) U/L Alkaline Phosphatase 131 H (38-126) U/L Total Protein 5.6 L (6.3-8.2) g/dL Albumin 2.0 L (3.5-5.0) g/dL Microbiology - Last 24 Hours (Table) 09/08/20 10:40 Gram Stain - Preliminary Ascites Fluid Body Fluid Culture - Preliminary Assessment and Plan Plan: 1 Massive ascites, secondary to chronic liver disease from both alcoholic cirrhosis and hepatitis C. 2 Previous history of large volume paracentesis, with repeat paracentesis abdominis on September 07, and removal of 2.8 L. 3 History of hepatitis C. 4 Alcoholic liver disease. 5 Rule out sepsis, and specifically, bacterial peritonitis. 6 History of hypertension. 7 History of ongoing heavy alcohol abuse. 8 Umbilical hernia. Plan: The patient has been accepted over at [facility], and will be considered for a transjugular intrahepatic portosystemic shunt. The patient did have a paracentesis abdomen on 09/08/2020. Was done by GI. 2.8 L was removed Empirically on Unasyn The patient is currently waiting transferred to [facility] The patient is off pressors Patient have some limited was from the paracentesis site. Abdomen remains quite distended. May transfer out of the intensive care unit If not getting transferred to [facility] today
--- NOTE | 2020-09-10 10:53 | P.PN ---
Subjective Progress Note Date: 09/10/20 CHIEF COMPLAINT: Umbilical hernia HISTORY OF PRESENT ILLNESS: Surgical service is following regards to patient's umbilical hernia. He has known alcohol liver cirrhosis and ascites. He is awaiting transfer to [facility] for possible TIPS procedure. He has been downgraded out of the ICU today. Afebrile. WBC 5.0 total bilirubin is down from 2.5-1.2 AST 146 ALT 80 ammonia level 23. Patient has bedside sitter. He denies any abdominal pain. PHYSICAL EXAM: VITAL SIGNS: Reviewed. GENERAL: Well-developed in no acute distress. HEENT: No sclera icterus. Extraocular movements grossly intact. Moist buccal mucosa. Head is atraumatic, normocephalic. ABDOMEN: Soft. Distended. Umbilical hernia. There is some skin breakdown at the hernia level which is whitish in color with pink around the edge NEUROLOGIC: Alert and oriented. Cranial nerves II through XII grossly intact. ASSESSMENT: 1. Umbilical hernia stable PLAN: -No surgical intervention planned -Continue supportive care Physician General Agent note has been reviewed by physician. Signing provider agrees with the documented findings, assessment, and plan of care. Objective - Vital Signs Vital signs: Vital Signs Temp 98.5 F 09/10/20 04:00 Pulse 87 09/10/20 09:00 Resp 18 09/10/20 09:00 BP 97/55 09/10/20 09:00 Pulse Ox 91 L 09/10/20 08:00 Intake & Output 09/09/20 09/10/20 09/10/20 18:59 06:59 18:59 Intake Total 1894.560 925 685 Output Total 1900 980 200 Balance -5.440 -55 485 Weight 95.254 kg 96.6 kg Intake: IV 900 925 325 Ampicillin-Sulbactam 3 gm 100 100 In Sodium Chloride 0.9% 100 ml @ 200 mls/hr IVPB Q8HR [facility] Rx#:[id number] Sodium Chloride 0.9% 1, 900 825 225 000 ml @ 75 mls/hr IV . [id number] [facility] Rx#:[id number] Intake, IV Titration 344.560 Amount Ampicillin-Sulbactam 3 gm 300 In Sodium Chloride 0.9% 100 ml @ 200 mls/hr IVPB Q8HR [facility] Rx#:[id number] Norepinephrine 4 mg In 44.560 Sodium Chloride 0.9% 250 ml @ 0.05 MCG/KG/MIN 18. 212 mls/hr IV .[id number] [facility] Rx#:[id number] Oral 650 360 Output: Urine 1550 930 200 Other 350 50 Other: Voiding Method Urinal Urinal - Labs CBC & Chem 7: 09/10/20 03:28 09/10/20 03:28 Labs: Abnormal Lab Results - Last 24 Hours (Table) 09/10/20 09/10/20 Range/Units 03:28 03:28 RBC 3.90 L (4.30-5.90) m/uL Hct 38.5 L (39.0-53.0) % Plt Count 115 L (150-450) k/uL Sodium 129 L (137-145) mmol/L Creatinine 0.65 L (0.66-1.25) mg/dL Calcium 7.3 L (8.4-10.2) mg/dL AST 146 H (17-59) U/L ALT 80 H (4-49) U/L Alkaline Phosphatase 131 H (38-126) U/L Total Protein 5.6 L (6.3-8.2) g/dL Albumin 2.0 L (3.5-5.0) g/dL Microbiology - Last 24 Hours (Table) 09/08/20 10:40 Gram Stain - Preliminary Ascites Fluid Body Fluid Culture - Preliminary
--- NOTE | 2020-09-10 11:40 | P.PN ---
Subjective This is a pleasant 65 years old male with past medical history of hypertension, liver disease, hepatitis C Patient presents because of abdominal pain secondary to distention secondary to ascites, he is due for paracentesis tomorrow and his abdomen is distended. He denies any chest pain or dyspnea, no diarrhea or dysuria. Blood pressure is 88/57, heart rate 77, with a rate is 19, saturating 100% on room air CBC is unremarkable, INR is 1.2, sodium 131, creatinine normal 0.8, bilirubin is 2.2, AST is elevated to 113, ALT is elevated at 59, CT of the abdomen showing umbilical hernia, extensive subcutaneous edema around the abdomen, multiple ileus, abdominal ascites and splenomegaly with diuresis suggestive of portal venous hypertension For consult is pending, from 80 including surgery, GI, critical care team and cardiology Patient was started on levophed, normal saline and Unasyn 09/08/2020 Troponin remains in the ICU, he is awake and alert, is complaining of from some mild abdominal pain and tenderness around the umbilical hernia which is about 1 inch to 2 inches in diameter, no significant leakage from his umbilicus today However he has puncture wound in the right mid abdomen from his paracentesis done yesterday was 2.8 L taken out. There is back on tenderness with few milliliters of peritoneal fluid leaking into the bag. Physical sent the fluid for culture and sensitivity Patient blood pressure baseline the low side 96/66 and he is on Levothroid 0.06 empirically on Unasyn for possible sepsis. Labs reviewed and they're unremarkable His echocardiogram showed ejection fraction of 55-60%. Cardiology saw the case was admitted metoprolol 25 mg twice a day and Aldactone 50 mg daily. He is also normal saline 75 mL/h patient got accepted to [facility] pending bed availability 09/09/2020 Patients in the ICU, fully awake and oriented, no abdominal pain. He still has leaking from his umbilicus and a catheter with vacuum is placed with about 2 L drained overnight. Right abdominal puncture wound from his paracentesis there is some peritoneal fluid leakage. Blood pressure is acceptable well he is on levophed, medodrain was added today. Vitals are unremarkable. Lasix 40 mg by mouth twice daily and Aldactone 50 mg daily added today. He is a still and Unasyn. And normal saline At 75 mL/h 09/10/2020 Patient the ICU, more confused today but his ammonia level is normal at 23, is hemodynamically stable with blood pressure of 103/82 while off pressors which were stopped today. He is afebrile. Sodium 129, liver enzymes are stable. No other significant Abnormality. He remains empirically on Unasyn and normal sinus 75 mL/h. Medodrain of 5 mg added today. Patient still pending a bed from [facility]. Patient can go to general medical floor today Objective - Vital Signs Vital signs: Vital Signs Temp 98.5 F 09/10/20 04:00 Pulse 92 09/10/20 10:00 Resp 23 09/10/20 10:00 BP 103/82 09/10/20 11:00 Pulse Ox 91 L 09/10/20 08:00 Intake & Output 09/09/20 09/10/20 09/10/20 18:59 06:59 18:59 Intake Total 1894.560 925 835 Output Total 1900 980 200 Balance -5.440 -55 635 Weight 95.254 kg 96.6 kg Intake: IV 900 925 475 Ampicillin-Sulbactam 3 gm 100 100 In Sodium Chloride 0.9% 100 ml @ 200 mls/hr IVPB Q8HR [facility] Rx#:[id number] Sodium Chloride 0.9% 1, 900 825 375 000 ml @ 75 mls/hr IV . [id number] [facility] Rx#:[id number] Intake, IV Titration 344.560 Amount Ampicillin-Sulbactam 3 gm 300 In Sodium Chloride 0.9% 100 ml @ 200 mls/hr IVPB Q8HR [facility] Rx#:[id number] Norepinephrine 4 mg In 44.560 Sodium Chloride 0.9% 250 ml @ 0.05 MCG/KG/MIN 18. 212 mls/hr IV .[id number] [facility] Rx#:[id number] Oral 650 360 Output: Urine 1550 930 200 Other 350 50 Other: Voiding Method Urinal Urinal - Exam GENERAL: The patient is alert and oriented x3, not in any acute distress. Well developed, well nourished. HEENT: Pupils are round and equally reacting to light. EOMI. No scleral icterus. No conjunctival pallor. Normocephalic, atraumatic. No pharyngeal erythema. No thyromegaly. CARDIOVASCULAR: S1 and S2 present. No murmurs, rubs, or gallops. PULMONARY: Chest is clear to auscultation, no wheezing or crackles. -ABDOMEN: Soft, nontender, nondistended, normoactive bowel sounds. No palpable organomegaly. Umbilical hernia with small lower ulcer, with mild leaking of peritoneal fluid. I admitted abdominal puncture wound with a few millimeter of leaking peritoneal fluid as well MUSCULOSKELETAL: No joint swelling or deformity. EXTREMITIES: No cyanosis, clubbing, or pedal edema. NEUROLOGICAL: Gross neurological examination did not reveal any focal deficits. SKIN: No rashes. no petechiae. - Labs CBC & Chem 7: 09/10/20 03:28 09/10/20 03:28 Labs: Abnormal Lab Results - Last 24 Hours (Table) 09/10/20 09/10/20 Range/Units 03:28 03:28 RBC 3.90 L (4.30-5.90) m/uL Hct 38.5 L (39.0-53.0) % Plt Count 115 L (150-450) k/uL Sodium 129 L (137-145) mmol/L Creatinine 0.65 L (0.66-1.25) mg/dL Calcium 7.3 L (8.4-10.2) mg/dL AST 146 H (17-59) U/L ALT 80 H (4-49) U/L Alkaline Phosphatase 131 H (38-126) U/L Total Protein 5.6 L (6.3-8.2) g/dL Albumin 2.0 L (3.5-5.0) g/dL Microbiology - Last 24 Hours (Table) 09/08/20 10:40 Gram Stain - Preliminary Ascites Fluid Body Fluid Culture - Preliminary Assessment and Plan Assessment: Umbilical hernia, with ascitis fluid leak from lower umbilical ulcer Abdominal ascites secondary to liver cirrhosis hypotension with shock , rule out infection although less likely Liver cirrhosis, decompensated Hepatitis C Hypertension Plan: This is a pleasant 65 years old male, presents with abdominal hernia secondary to ascites from his liver cirrhosis. Possible Sepsis Continue with Unasyn, discontinue , currently goes to the general medical floor several consultants of the case including the critical care, english lecturer, storage battery inspector and tester and surgery teams Continue with antibiotic Unasyn Plan to be transferred to [facility] for possible TIPS procedure Labs and medication were reviewed.. Continue same treatment. Continue with symptomatic treatment. Resume home medication. Monitor lytes and vitals. DVT and GI prophylaxis. Further recommendations depends on the clinical course of the patient DVT prophylaxis: Subcutaneous heparin GI Prophylaxis: Pepcid Prognosis is guarded
[2020-09-10] MEDS: SODIUM CHLORIDE 0.9% 1,000 ML IV SCH (12:22)
--- NOTE | 2020-09-10 15:17 | P.PN ---
Subjective Progress Note Date: 09/10/20 Principal diagnosis: Ascites 65-year-old male with a history of alcoholic cirrhosis of the liver and refractory ascites requiring frequent paracentesis was admitted to the hospital because of leakage from the umbilicus. He underwent a large-volume paracentesis on Thursday with 2.5 L of fluid removed. started having significant amounts of leaking from the umbilical area and the site of the paracentesis in the right lower quadrant. He had approximately 1-200 mL in colostomy bag which has been placed over the paracentesis site. He is denying any abdominal pain, nausea, or vomiting. He is awaiting to be transferred to [facility] for possible TIPS procedure. Objective - Vital Signs Vital signs: Vital Signs Temp 98.5 F 09/10/20 04:00 Pulse 87 09/10/20 09:00 Resp 18 09/10/20 09:00 BP 97/55 09/10/20 09:00 Pulse Ox 91 L 09/10/20 08:00 Intake & Output 09/09/20 09/10/20 09/10/20 18:59 06:59 18:59 Intake Total 1894.560 925 685 Output Total 1900 980 200 Balance -5.440 -55 485 Weight 95.254 kg 96.6 kg Intake: IV 900 925 325 Ampicillin-Sulbactam 3 gm 100 100 In Sodium Chloride 0.9% 100 ml @ 200 mls/hr IVPB Q8HR [facility] Rx#:[id number] Sodium Chloride 0.9% 1, 900 825 225 000 ml @ 75 mls/hr IV . [id number] [facility] Rx#:[id number] Intake, IV Titration 344.560 Amount Ampicillin-Sulbactam 3 gm 300 In Sodium Chloride 0.9% 100 ml @ 200 mls/hr IVPB Q8HR [facility] Rx#:[id number] Norepinephrine 4 mg In 44.560 Sodium Chloride 0.9% 250 ml @ 0.05 MCG/KG/MIN 18. 212 mls/hr IV .[id number] [facility] Rx#:[id number] Oral 650 360 Output: Urine 1550 930 200 Other 350 50 Other: Voiding Method Urinal Urinal - Exam General appearance: The patient is alert, oriented, appears in no acute distress. HET: Head is normocephalic and atraumatic. Conjunctiva pink. Sclera anicteric. Neck: Supple without lymphadenopathy. Abdomen: Soft, mild tenderness, distended with bowel sounds. No guarding or rigidity. colostomy bag over paracentesis site with approximately 1-200, pulse of ascitic fluid. Extremities: Normal skin color and turgor. No pedal edema Skin: No rashes, no jaundice Neurological: No focal deficits. Alert and oriented 3. - Labs CBC & Chem 7: 09/10/20 03:28 09/10/20 03:28 Labs: Abnormal Lab Results - Last 24 Hours (Table) 09/10/20 09/10/20 Range/Units 03:28 03:28 RBC 3.90 L (4.30-5.90) m/uL Hct 38.5 L (39.0-53.0) % Plt Count 115 L (150-450) k/uL Sodium 129 L (137-145) mmol/L Creatinine 0.65 L (0.66-1.25) mg/dL Calcium 7.3 L (8.4-10.2) mg/dL AST 146 H (17-59) U/L ALT 80 H (4-49) U/L Alkaline Phosphatase 131 H (38-126) U/L Total Protein 5.6 L (6.3-8.2) g/dL Albumin 2.0 L (3.5-5.0) g/dL Microbiology - Last 24 Hours (Table) 09/08/20 10:40 Gram Stain - Preliminary Ascites Fluid Body Fluid Culture - Preliminary Assessment and Plan (1) Ascites Narrative/Plan: recurrent ascites secondary to portal hypertension from alcoholic cirrhosis of the liver. The patient has leakage from the umbilical hernia site. Dr. Mckeon is following the patient and he is not a candidate for surgery at the present time. He is status post large volume paracentesis on Thursday with 2.5 L of fluid removed. He has some leakage at the site of paracentesis and has a colostomy bag in approximately 1-200 mL of ascitic fluid present. Aldactone increased to 100 mg daily, Lasix 40 mg twice a day. Current Visit: Yes Status: Acute Code(s): R18.8 - OTHER ASCITES SNOMED Code(s): 305343966 (2) Ascites due to alcoholic cirrhosis Narrative/Plan: patient has alcoholic cirrhosis of the liver, quit drinking approximately 2 months ago. Elevation of liver function tests secondary to alcoholic liver disease. Current Visit: No Status: Acute Code(s): K70.31 - ALCOHOLIC CIRRHOSIS OF LIVER WITH ASCITES SNOMED Code(s): 8098705312239064 Plan: 1. Lasix 40 mg twice daily 2. Increase Aldactone to 100 mg daily 3. Continue low-sodium diet 4. Patient is awaiting transfer to [facility] for consideration of TIPS because of recurrent ascites and leakage from the umbilical hernia site. Thank you for this consultation, we will continue to follow Dr. Allan Juarez I agree with the dictator's note, documented as a scribe by Sheela Romano.
[2020-09-10] MEDS: FUROSEMIDE 40 MG TAB PO SCH (16:34)
[2020-09-11] MEDS: AMPICILLIN-SULBACTAM 3 GM in SODIUM CHLORIDE 0.9% 100 ML IVPB SCH ×2 (00:43→14:22)
[2020-09-11] MEDS: SODIUM CHLORIDE 0.9% 1,000 ML IV SCH (00:45)
[2020-09-11] MEDS: MIDODRINE 5 MG TAB PO SCH ×3 (06:50→17:14)
--- NOTE | 2020-09-11 08:37 | P.PN ---
Subjective Progress Note Date: 09/11/20 09/10/2020, the patient is being seen for a follow-up. The patient is a known case of alcoholic liver failure in combination with hepatitis C. The patient is known to have massive ascites with previous history of large volume paracentesis and the patient is currently being considered for transfer to [facility] for TIPS procedure. The patient is currently on pressors. He accidentally pulled out his central line. He is on low-dose norepinephrine infusion. He is also on medication. He is on room air oxygen. No significant respiratory distress. No altered mentation at this point in time. Renal function stable. The patient remains on empiric antibiotic coverage with IV Unasyn. The patient is also on Aldactone at a dose of 50 mg by mouth daily. IV fluids in the form of normal saline today to 75 mL an hour.. This morning, the patient is off pressors and been off pressors for the past 24 hours. The plan is still the same to transfer this patient to [facility] for a possible TIPS. He remains on room air oxygen. Mental status is adequate. Is tolerating diet. His blood work from today shows a sodium of 129, potassium of 4.4, BUN of 16 with a creatinine of 0.9, LFTs are slightly elevated, comparable to the earlier evaluation. White cell count from today is at 5.0 with a hemoglobin of 13.1. No other significant events. He does have a sitter at the bedside. He answers appropriately however at times is very impulsive and as mentioned earlier the pulled his central line out and he has peripheral lines for now. 27 2020, the patient is resting comfortably in bed on room air oxygen. He is on normal saline at [facility]. He is on Lasix 40 mg twice a day and is also on Aldactone 100 mg by mouth daily. He was running a low dose norepinephrine infusion yesterday for hemodynamic support. Currently he is off pressors this morning. No fever. No chills. No altered mentation. He has been off pressors for more than 48 hours. In terms of his labs, the patient's white cell count from yesterday was at 5.0 with a hemoglobin of 15.1. Sodium from yesterday was 129. No labs from today. Overnight testing was done and it came back negative. His ammonia level is 23. The is still on IV Unasyn. He is on Midrin 5 mg by mouth twice a day. His ascitic fluid cultures came back negative for any bacterial growth. No other labs from today. He is awake and alert and communicating. Abdomen is slightly distended and the patient has an umbilical hernia. No a bdominal pain. No nausea or vomiting. Objective - Vital Signs Vital signs: Vital Signs Temp 98.6 F 09/11/20 02:00 Pulse 78 09/11/20 02:00 Resp 18 09/10/20 20:00 BP 100/72 09/11/20 02:00 Pulse Ox 95 09/11/20 02:00 Intake & Output 09/10/20 09/11/20 09/11/20 18:59 06:59 18:59 Intake Total 910 75 Output Total 425 1000 Balance 485 -925 Intake: IV 550 75 Ampicillin-Sulbactam 3 gm 100 In Sodium Chloride 0.9% 100 ml @ 200 mls/hr IVPB Q8HR [facility] Rx#:[id number] Sodium Chloride 0.9% 1, 450 75 000 ml @ 75 mls/hr IV . [id number] [facility] Rx#:[id number] Oral 360 Output: Drainage 225 300 Right Lateral Abdomen 225 300 Urine 200 700 Other: Voiding Method Urinal Urinal # Voids 1 4 # Bowel Movements 1 - Exam No acute distress, oriented 3. Currently not on any supplemental oxygen. Room air saturations are 94%. HEENT examination is grossly unremarkable. Neck supple. Full range of motion. No adenopathy thyromegaly or neck vein distention. Cardiovascular examination reveals regular rhythm rate. S1-S2 normal. No S3 or S4. No discernible murmur noted. Heart rate is 70 bpm. Heart sounds are distant. Lungs reveal mostly clear breath sounds. Scattered rhonchi are noted. No wheezes or crackles. Abdomen distended, with an obvious reducible umbilicus hernia. There is some ulceration about the umbilicus hernia. There is leaking ascitic fluid noted. This morning, there is minimal amount of fluid emanating from the paracentesis puncture site. He has a colostomy bag covering that area. He also has an umbilical hernia which is easily reducible. Extremities are intact. No cyanosis or clubbing. Mild lower extremity edema noted. Skin reveals some mild jaundice. Neurologic examination is brief but nonfocal. - Labs CBC & Chem 7: 09/10/20 03:28 09/10/20 03:28 Labs: Microbiology - Last 24 Hours (Table) 09/08/20 10:40 Gram Stain - Preliminary Ascites Fluid Body Fluid Culture - Preliminary Assessment and Plan Plan: 1 Massive ascites, secondary to chronic liver disease from both alcoholic cirrhosis and hepatitis C. 2 Previous history of large volume paracentesis, with repeat paracentesis abdominis on September 07, and removal of 2.8 L. of the Mini-Mental distended with some ongoing ascites. Umbilical hernia. There was some bleeding from the puncture site which is currently inactive and stable. The fluid cultures came back negative. 3 History of hepatitis C. 4 Alcoholic liver disease. 5 Rule out sepsis, and specifically, bacterial peritonitis. Cultures from the abdominal ascites came back negative and the Unasyn can be discontinued 6 History of hypertension. 7 History of ongoing heavy alcohol abuse. 8 Umbilical hernia. Plan: Continue the Unasyn IV fluids at KVO Fluid restriction and continue diuretics with a combination of Lasix and Aldactone No need for pressors Repeat electrolytes and blood work tomorrow Can be chest with out of the intensive care unit today. lactulose 10 mL once a day for hyperammonemia and hepatic encephalopathy
[2020-09-11] MEDS: PANTOPRAZOLE 40 MG/10 ML VIAL IVP SCH (08:47)
[2020-09-11] MEDS: FUROSEMIDE 40 MG TAB PO SCH ×2 (08:47→15:43)
[2020-09-11] MEDS ORDERED: SPIRONOLACTONE 25 MG TAB PO SCH ×2 (09:00→21:00)
[2020-09-11] MEDS ORDERED: LACTULOSE 20 GM/30 ML CUP PO SCH (09:00)
--- NOTE | 2020-09-11 11:58 | P.PN ---
Subjective This is a pleasant 65 years old male with past medical history of hypertension, liver disease, hepatitis C Patient presents because of abdominal pain secondary to distention secondary to ascites, he is due for paracentesis tomorrow and his abdomen is distended. He denies any chest pain or dyspnea, no diarrhea or dysuria. Blood pressure is 88/57, heart rate 77, with a rate is 19, saturating 100% on room air CBC is unremarkable, INR is 1.2, sodium 131, creatinine normal 0.8, bilirubin is 2.2, AST is elevated to 113, ALT is elevated at 59, CT of the abdomen showing umbilical hernia, extensive subcutaneous edema around the abdomen, multiple ileus, abdominal ascites and splenomegaly with diuresis suggestive of portal venous hypertension For consult is pending, from 80 including surgery, GI, critical care team and cardiology Patient was started on levophed, normal saline and Unasyn 09/08/2020 Troponin remains in the ICU, he is awake and alert, is complaining of from some mild abdominal pain and tenderness around the umbilical hernia which is about 1 inch to 2 inches in diameter, no significant leakage from his umbilicus today However he has puncture wound in the right mid abdomen from his paracentesis done yesterday was 2.8 L taken out. There is back on tenderness with few milliliters of peritoneal fluid leaking into the bag. Physical sent the fluid for culture and sensitivity Patient blood pressure baseline the low side 96/66 and he is on Levothroid 0.06 empirically on Unasyn for possible sepsis. Labs reviewed and they're unremarkable His echocardiogram showed ejection fraction of 55-60%. Cardiology saw the case was admitted metoprolol 25 mg twice a day and Aldactone 50 mg daily. He is also normal saline 75 mL/h patient got accepted to [facility] pending bed availability 09/09/2020 Patients in the ICU, fully awake and oriented, no abdominal pain. He still has leaking from his umbilicus and a catheter with vacuum is placed with about 2 L drained overnight. Right abdominal puncture wound from his paracentesis there is some peritoneal fluid leakage. Blood pressure is acceptable well he is on levophed, medodrain was added today. Vitals are unremarkable. Lasix 40 mg by mouth twice daily and Aldactone 50 mg daily added today. He is a still and Unasyn. And normal saline At 75 mL/h 09/10/2020 Patient the ICU, more confused today but his ammonia level is normal at 23, is hemodynamically stable with blood pressure of 103/82 while off pressors which were stopped today. He is afebrile. Sodium 129, liver enzymes are stable. No other significant Abnormality. He remains empirically on Unasyn and normal sinus 75 mL/h. Medodrain of 5 mg added today. Patient still pending a bed from [facility]. Patient can go to general medical floor today 09/11/2020 Patient is more awake and alert today and back to his normal mental state Hemodynamically stable and the blood pressure is 104/65 need for pressors No labs from today Lactulose 10 mg daily added In the proximal accepted by her report hospital pending bed availability Still has leaking from his peritoneal wound Objective - Vital Signs Vital signs: Vital Signs Temp 98.4 F 09/11/20 08:00 Pulse 78 09/11/20 08:00 Resp 14 09/11/20 08:00 BP 104/65 09/11/20 08:00 Pulse Ox 96 09/11/20 08:00 Intake & Output 09/10/20 09/11/20 09/11/20 18:59 06:59 18:59 Intake Total 910 75 Output Total 425 1000 Balance 485 -925 Intake: IV 550 75 Ampicillin-Sulbactam 3 gm 100 In Sodium Chloride 0.9% 100 ml @ 200 mls/hr IVPB Q8HR [facility] Rx#:[id number] Sodium Chloride 0.9% 1, 450 75 000 ml @ 75 mls/hr IV . [id number] [facility] Rx#:[id number] Oral 360 Output: Drainage 225 300 Right Lateral Abdomen 225 300 Urine 200 700 Other: Voiding Method Urinal Urinal Urinal # Voids 1 4 # Bowel Movements 1 - Exam GENERAL: The patient is alert and oriented x3, not in any acute distress. Well developed, well nourished. HEENT: Pupils are round and equally reacting to light. EOMI. No scleral icterus. No conjunctival pallor. Normocephalic, atraumatic. No pharyngeal erythema. No thyromegaly. CARDIOVASCULAR: S1 and S2 present. No murmurs, rubs, or gallops. PULMONARY: Chest is clear to auscultation, no wheezing or crackles. -ABDOMEN: Soft, nontender, nondistended, normoactive bowel sounds. No palpable organomegaly. Umbilical hernia with small lower ulcer, with mild leaking of peritoneal fluid. I admitted abdominal puncture wound with a few millimeter of leaking peritoneal fluid as well MUSCULOSKELETAL: No joint swelling or deformity. EXTREMITIES: No cyanosis, clubbing, or pedal edema. NEUROLOGICAL: Gross neurological examination did not reveal any focal deficits. SKIN: No rashes. no petechiae. - Labs CBC & Chem 7: 09/10/20 03:28 09/10/20 03:28 Labs: Microbiology - Last 24 Hours (Table) 09/08/20 10:40 Gram Stain - Preliminary Ascites Fluid Body Fluid Culture - Preliminary Assessment and Plan Assessment: Umbilical hernia, with ascitis fluid leak from lower umbilical ulcer Abdominal ascites secondary to liver cirrhosis hypotension with shock , rule out infection although less likely Liver cirrhosis, decompensated Hepatitis C Hypertension Plan: This is a pleasant 65 years old male, presents with abdominal hernia secondary to ascites from his liver cirrhosis. Possible Sepsis Continue with Unasyn, discontinue , currently goes to the general medical floor several consultants of the case including the critical care, assembler piano, java lead engineer and surgery teams Continue with antibiotic Unasyn Plan to be transferred to [facility] for possible TIPS procedure Labs and medication were reviewed.. Continue same treatment. Continue with symptomatic treatment. Resume home medication. Monitor lytes and vitals. DVT and GI prophylaxis. Further recommendations depends on the clinical course of the patient DVT prophylaxis: Subcutaneous heparin GI Prophylaxis: Pepcid Prognosis is guarded
--- NOTE | 2020-09-11 12:52 | P.PN ---
Subjective Progress Note Date: 09/11/20 CHIEF COMPLAINT: Umbilical hernia HISTORY OF PRESENT ILLNESS: Surgical service is following regards to patient's umbilical hernia. He has known alcohol liver cirrhosis and ascites. He is awaiting transfer to [facility] for possible TIPS procedure. Patient is currently in the ICU. He is off of the norepinephrine. Afebrile. WBC 5.0 total bilirubin is down from 2.5-1.2 AST 146 ALT 80 ammonia level 23. He denies any abdominal pain. PHYSICAL EXAM: VITAL SIGNS: Reviewed. GENERAL: Well-developed in no acute distress. HEENT: No sclera icterus. Extraocular movements grossly intact. Moist buccal mucosa. Head is atraumatic, normocephalic. ABDOMEN: Soft. Distended. reducible Umbilical hernia. There is ulceration at the umbilicus with ascites fluid leak. Also has ascites fluid leak from where a paracentesis was completed has ostomy bag covering it NEUROLOGIC: Alert and oriented. Cranial nerves II through XII grossly intact. ASSESSMENT: 1. Umbilical hernia stable PLAN: -No surgical intervention planned -Continue supportive care Physician Hazardous Substances Engineer note has been reviewed by physician. Signing provider agrees with the documented findings, assessment, and plan of care. Objective - Vital Signs Vital signs: Vital Signs Temp 98.4 F 09/11/20 08:00 Pulse 78 09/11/20 08:00 Resp 14 09/11/20 08:00 BP 104/65 09/11/20 08:00 Pulse Ox 96 09/11/20 08:00 Intake & Output 09/10/20 09/11/20 09/11/20 18:59 06:59 18:59 Intake Total 910 75 Output Total 425 1000 1200 Balance 485 -925 -1200 Intake: IV 550 75 Ampicillin-Sulbactam 3 gm 100 In Sodium Chloride 0.9% 100 ml @ 200 mls/hr IVPB Q8HR [facility] Rx#:[id number] Sodium Chloride 0.9% 1, 450 75 000 ml @ 75 mls/hr IV . [id number] [facility] Rx#:[id number] Oral 360 Output: Drainage 225 300 850 Right Lateral Abdomen 225 300 Umbilicus 850 Urine 200 700 350 Other: Voiding Method Urinal Urinal Urinal # Voids 1 4 # Bowel Movements 1 - Labs CBC & Chem 7: 09/10/20 03:28 09/10/20 03:28 Labs: Microbiology - Last 24 Hours (Table) 09/08/20 10:40 Gram Stain - Preliminary Ascites Fluid Body Fluid Culture - Preliminary
[2020-09-11] MEDS: NOREPINEPHRINE 32 MG in SODIUM CHLORIDE 0.9% 218 ML IV SCH (14:19)
[2020-09-11 14:28] VITALS: BP 96/57; PULSE 60; RESP 16; TEMP 98.6
--- NOTE | 2020-09-16 16:02 | US ---
EXAMINATION TYPE: US paracentesis abd w/image DATE OF EXAM: 09/09/2020 COMPARISON: NONE HISTORY: Ascites. PROCEDURE: Maximal barrier technique was utilized. The skin overlying a suitable pocket of fluid was localized with ultrasound and the overlying skin was prepped and draped. Ultrasound was utilized with sterile technique. Lidocaine was used for local anesthesia and a skin jose m made with a scalpel. Catheter was advanced under direct ultrasound guidance into a suitable pocket of fluid and approximately 2.8 liter s of serous fluid were removed. Catheter was withdrawn and hemostasis achieved. There is no immedia te complication; the patient is discharged in stable condition. IMPRESSION: STATUS POST ULTRASOUND GUIDED PARACENTESIS FOR PALLIATION OF ASCITES. THIS PROCEDURE WA S PERFORMED BY THE UNDERSIGNED.
== END 2020-09-11 17:42 | disposition short-term general hospital (02) | DRG 433 ==
LOC: EC 23:36 → 4SSUR 09-07 03:38 → 3SCARD 09-07 05:48 → 2SICU 09-07 09:37 → 5NMEDONC 09-11 13:28
PROVIDERS: ADMIT Internal Medicine; ATTEND Internal Medicine
PROC: 0W9G3ZX Drainage of Peritoneal Cavity, Percutaneous Approach, Diagnostic (ICD-10-PCS; principal; 2020-09-07)
DX: K70.31 Alcoholic cirrhosis of liver with ascites (principal); K56.7 Ileus, unspecified; R57.9 Shock, unspecified; K76.6 Portal hypertension; I96 Gangrene, not elsewhere classified; I47.1 Supraventricular tachycardia; J98.11 Atelectasis; K70.40 Alcoholic hepatic failure without coma; F10.20 Alcohol dependence, uncomplicated; B18.2 Chronic viral hepatitis C; Z20.822 Contact with and (suspected) exposure to COVID-19; K80.20 Calculus of gallbladder without cholecystitis without obstruction; K42.9 Umbilical hernia without obstruction or gangrene; I10 Essential (primary) hypertension; G89.29 Other chronic pain; R16.1 Splenomegaly, not elsewhere classified; R45.87 Impulsiveness; Z79.899 Other long term (current) drug therapy; Z87.19 Personal history of other diseases of the digestive system; Z90.79 Acquired absence of other genital organ(s); Z87.891 Personal history of nicotine dependence; Z98.890 Other specified postprocedural states
CPT/HCPCS: 36415; 49083; 71045; 74177; 80048; 80053; 82140; 83605; 83690; 83735; 84100; 85025; 85610; 85730; 87070; 87205; 87635; 93005; 93306; 96361; 96374; 96375; 99285

== ENCOUNTER 2020-11-04 16:00 | Observation (INO) | payer OTHER ==
--- NOTE | 2020-11-04 16:38 | ED ---
General Adult HPI - General Chief complaint: Abdominal Pain Stated complaint: Abd Pain Time Seen by Provider: 11/04/20 16:34 Source: patient, EMS, old records reviewed Mode of arrival: EMS Limitations: physical limitation - History of Present Illness Initial comments: Patient presents to the ED by ambulance for evaluation. Patient states that he has liver failure, and he states that he has developed a "swollen" abdomen over the past month or so. Patient also admits to having mild generalized abdominal pain. Patient states that he last had his ascites drained about a month ago. Patient states that he had a normal bowel movement earlier today. Patient denies trauma or injury, fever or chills, headache, focal neuro deficit, chest pain or pressure, dyspnea, cough or cold symptoms, palpitations, dizziness, back pain, nausea or vomiting, diarrhea or constipation, bloody or melanotic stool, dysuria or urinary symptoms, decreased urine output, or any other symptoms or complaints. Patient states that he no longer drinks alcohol. - Related Data Home Medications Medication Instructions Recorded Confirmed Metoprolol Tartrate [Lopressor] 12.5 mg PO BID 09/07/20 09/07/20 Spironolactone [Aldactone] 100 mg PO DAILY 09/07/20 09/07/20 Previous Rx's Medication Instructions Recorded Potassium Chloride ER [K-Dur 20] 20 meq PO DAILY 90 Days #90 06/13/20 tab.er.prt Thiamine [Vitamin B-1] 100 mg PO DAILY 90 Days #90 tab 06/13/20 Cyanocobalamin [Vitamin B-12] 2,000 mcg PO DAILY tab 08/13/20 Folic Acid 1 mg PO DAILY tab 08/13/20 Furosemide [Lasix] 40 mg PO BID@0900,1600 tab 08/13/20 Magnesium Oxide [Mag-Ox] 400 mg PO DAILY tab 08/13/20 Tamsulosin [Flomax] 0.4 mg PO PC-SUPPER cap.er.24h 08/13/20 Allergies Allergy/AdvReac Type Severity Reaction Status Date / Time No Known Allergies Allergy Verified 09/07/20 08:00 Review of Systems ROS Statement: Those systems with pertinent positive or pertinent negative responses have been documented in the HPI. ROS Other: All systems not noted in ROS Statement are negative. Past Medical History Past Medical History: Hypertension, Liver Disease Additional Past Medical History / Comment(s): hep C History of Any Multi-Drug Resistant Organisms: None Reported Past Surgical History: Appendectomy Additional Past Surgical History / Comment(s): paracentesis, jaw Past Anesthesia/Blood Transfusion Reactions: No Reported Reaction Past Psychological History: No Psychological Hx Reported Past Alcohol Use History: None Reported - Past Family History Mother Family Medical History: Unable to Obtain Additional Family Medical History / Comment(s): unknown General Exam General appearance: alert, in no apparent distress Head exam: Present: atraumatic, normocephalic Eye exam: Present: normal appearance, EOMI ENT exam: Present: mucous membranes moist Neck exam: Present: other (Trachea is in midline) Respiratory exam: Present: normal lung sounds bilaterally. Absent: respiratory distress, wheezes, rales, rhonchi, stridor Cardiovascular Exam: Present: regular rate, normal rhythm, normal heart sounds, other (Normal radial pulses bilaterally) GI/Abdominal exam: Present: soft, distended, diminished bowel sounds, other (Mild generalized abdominal tenderness; + ascites; + anasarca). Absent: guarding, rebound Extremities exam: Present: pedal edema. Absent: tenderness, calf tenderness Neurological exam: Present: alert, oriented X3. Absent: motor sensory deficit Psychiatric exam: Present: normal affect, normal mood Skin exam: Present: warm, dry, intact, normal color Course Vital Signs 11/04/20 11/04/20 11/04/20 16:12 17:58 20:00 Temperature 98.7 F Pulse Rate 94 92 91 Respiratory 18 16 18 Rate Blood Pressure 110/80 123/57 142/90 O2 Sat by Pulse 99 99 100 Oximetry - Reevaluation(s) Reevaluation #1: 11/04/20 21:54 Patient states that his pain has improved with ED management, and he denies development of any new symptoms while in the ED. Patient remains alert and breathing comfortably. Patient is aware of his test results, and he agrees with hospital admission at this time. 11/04/20 22:12 Case, H&P, test results and ED management were discussed with Dr. Carlton. She accepts hospital admission. She agrees with GI consultation in the morning. She has no further recommendations at this time. Medical Decision Making - Medical Decision Making I suspect the patient's abdominal pain is likely secondary to his massive asc ites. Patient is afebrile and without leukocytosis. Patient has a soft and nonsurgical abdominal exam. Patient does appear to have a UTI, for which he was treated with a dose of IV ceftriaxone in the ED. Patient was also treated with IV analgesics in the ED, and he reports improvement in his pain. Will admit the patient to the hospital for likely paracentesis and GI consultation. Dr. Carlton has accepted hospital admission. - Lab Data Result diagrams: 11/04/20 17:16 11/04/20 17:16 Lab Results 11/04/20 11/04/20 11/04/20 Range/Units 17:16 17:16 17:16 WBC 4.1 (3.8-10.6) k/uL RBC 4.07 L (4.30-5.90) m/uL Hgb 13.7 (13.0-17.5) gm/dL Hct 38.7 L (39.0-53.0) % MCV 95.2 (80.0-100.0) fL MCH 33.7 (25.0-35.0) pg MCHC 35.4 (31.0-37.0) g/dL RDW 13.6 (11.5-15.5) % Plt Count 144 L (150-450) k/uL MPV 7.0 Neutrophils % 67 % Lymphocytes % 20 % Monocytes % 7 % Eosinophils % 3 % Basophils % 1 % Neutrophils # 2.7 (1.3-7.7) k/uL Lymphocytes # 0.8 L (1.0-4.8) k/uL Monocytes # 0.3 (0-1.0) k/uL Eosinophils # 0.1 (0-0.7) k/uL Basophils # 0.0 (0-0.2) k/uL PT 11.9 (9.0-12.0) sec INR 1.1 (<1.2) APTT 25.2 (22.0-30.0) sec Sodium 130 L (137-145) mmol/L Potassium 4.7 (3.5-5.1) mmol/L Chloride 108 H (98-107) mmol/L Carbon Dioxide 18 L (22-30) mmol/L Anion Gap 4 mmol/L BUN 12 (9-20) mg/dL Creatinine 0.66 (0.66-1.25) mg/dL Est GFR (CKD-EPI)AfAm >90 (>60 ml/min/1.73 sqM) Est GFR (CKD-EPI)NonAf >90 (>60 ml/min/1.73 sqM) Glucose 104 H (74-99) mg/dL Plasma Lactic Acid Eddie (0.7-2.0) mmol/L Calcium 7.9 L (8.4-10.2) mg/dL Total Bilirubin 2.2 H (0.2-1.3) mg/dL AST 86 H (17-59) U/L ALT 43 (4-49) U/L Alkaline Phosphatase 165 H (38-126) U/L Total Protein 7.3 (6.3-8.2) g/dL Albumin 2.6 L (3.5-5.0) g/dL Amylase 58 (30-110) U/L Lipase 72 (23-300) U/L Urine Color Urine Appearance (Clear) Urine pH (5.0-8.0) Ur Specific [place] (1.001-1.035) Urine Protein (Negative) Urine Glucose (UA) (Negative) Urine Ketones (Negative) Urine Blood (Negative) Urine Nitrite (Negative) Urine Bilirubin (Negative) Urine Urobilinogen (<2.0) mg/dL Ur Leukocyte Esterase (Negative) Urine RBC (0-5) /hpf Urine WBC (0-5) /hpf Ur Squamous Epith Cells (0-4) /hpf Calcium Oxalate Crystal (None) /hpf Urine Bacteria (None) /hpf Hyaline Casts (0-2) /lpf Urine Mucus (None) /hpf 11/04/20 11/04/20 Range/Units 17:16 17:50 WBC (3.8-10.6) k/uL RBC (4.30-5.90) m/uL Hgb (13.0-17.5) gm/dL Hct (39.0-53.0) % MCV (80.0-100.0) fL MCH (25.0-35.0) pg MCHC (31.0-37.0) g/dL RDW (11.5-15.5) % Plt Count (150-450) k/uL MPV Neutrophils % % Lymphocytes % % Monocytes % % Eosinophils % % Basophils % % Neutrophils # (1.3-7.7) k/uL Lymphocytes # (1.0-4.8) k/uL Monocytes # (0-1.0) k/uL Eosinophils # (0-0.7) k/uL Basophils # (0-0.2) k/uL PT (9.0-12.0) sec INR (<1.2) APTT (22.0-30.0) sec Sodium (137-145) mmol/L Potassium (3.5-5.1) mmol/L Chloride (98-107) mmol/L Carbon Dioxide (22-30) mmol/L Anion Gap mmol/L BUN (9-20) mg/dL Creatinine (0.66-1.25) mg/dL Est GFR (CKD-EPI)AfAm (>60 ml/min/1.73 sqM) Est GFR (CKD-EPI)NonAf (>60 ml/min/1.73 sqM) Glucose (74-99) mg/dL Plasma Lactic Acid Eddie 1.5 (0.7-2.0) mmol/L Calcium (8.4-10.2) mg/dL Total Bilirubin (0.2-1.3) mg/dL AST (17-59) U/L ALT (4-49) U/L Alkaline Phosphatase (38-126) U/L Total Protein (6.3-8.2) g/dL Albumin (3.5-5.0) g/dL Amylase (30-110) U/L Lipase (23-300) U/L Urine Color [place] Urine Appearance Cloudy (Clear) Urine pH 6.0 (5.0-8.0) Ur Specific [place] 1.030 (1.001-1.035) Urine Protein 1+ H (Negative) Urine Glucose (UA) Negative (Negative) Urine Ketones Negative (Negative) Urine Blood Small H (Negative) Urine Nitrite Negative (Negative) Urine Bilirubin 1+ H (Negative) Urine Urobilinogen 2.0 (<2.0) mg/dL Ur Leukocyte Esterase Moderate H (Negative) Urine RBC 24 H (0-5) /hpf Urine WBC 8 H (0-5) /hpf Ur Squamous Epith Cells 2 (0-4) /hpf Calcium Oxalate Crystal Few H (None) /hpf Urine Bacteria Rare H (None) /hpf Hyaline Casts 16 H (0-2) /lpf Urine Mucus Many H (None) /hpf - Radiology Data CT abdomen/pelvis without contrast: There is massive abdominal ascites that is significantly increased compared to old exam. Subcutaneous edema around the abdomen. Irregular small liver consistent with cirrhosis. Portal venous hypertension. There is progression of the liver disease compared to exam. Cholelithiasis unchanged. Disposition Clinical Impression: Abdominal pain, Ascites, UTI (urinary tract infection) Disposition: ADMITTED IP TO THIS HOSP Condition: Stable Is patient prescribed a controlled substance at d/c from ED?: No Referrals: None,Stated [Primary Care Provider] - 1-2 days Time of Disposition: 22:15
[2020-11-04 17:33] LABS: Basophils % (A) 1 %; Eosinophils # (A) 0.1 k/uL (0-0.7); Eosinophils % (A) 3 %; HCT 38.7 % (39.0-53.0); HGB 13.7 gm/dL (13.0-17.5); Lymphocytes # (A) 0.8 k/uL (1.0-4.8); Lymphocytes % (A) 20 %; MCH 33.7 pg (25.0-35.0); MCHC 35.4 g/dL (31.0-37.0); MCV 95.2 fL (80.0-100.0); Monocytes # (A) 0.3 k/uL (0-1.0); Monocytes % (A) 7 %; Neutrophils # (A) 2.7 k/uL (1.3-7.7); Neutrophils % (A) 67 %; Platelet Count 144 k/uL (150-450); RBC 4.07 m/uL (4.30-5.90); RDW 13.6 % (11.5-15.5); WBC 4.1 k/uL (3.8-10.6)
[2020-11-04] MEDS ORDERED: MORPHINE SULFATE 4 MG/ML SYRINGE IVP STA ×2 (17:36→20:24)
[2020-11-04 17:41] LABS: INR 1.1 (<1.2); Partial Thromboplastin Time 25.2 sec (22.0-30.0); Prothrombin Time 11.9 sec (9.0-12.0)
[2020-11-04 17:43] LABS: ALT 43 U/L (4-49); AST 86 U/L (17-59); African American GFR (CKD) >90 (>60 ml/min/1.73 sqM); Albumin 2.6 g/dL (3.5-5.0); Alkaline Phosphatase 165 U/L (38-126); Amylase 58 U/L (30-110); Blood Urea Nitrogen 12 mg/dL (9-20); Calcium 7.9 mg/dL (8.4-10.2); Carbon Dioxide 18 mmol/L (22-30); Glucose 104 mg/dL (74-99); Lipase 72 U/L (23-300); Non-African American GFR(CKD) >90 (>60 ml/min/1.73 sqM); Total Bilirubin 2.2 mg/dL (0.2-1.3); Total Protein 7.3 g/dL (6.3-8.2)
[2020-11-04 18:08] LABS: Appearance,Urine Cloudy (Clear); Bacteria,Urine Rare /hpf; Bilirubin,Urine 1+ (Negative); Blood,Urine Small (Negative); Calcium Oxalate Crystals,Urine Few /hpf; Color,Urine Orange; Glucose,Urine (UA) Negative (Negative); Hyaline Casts,Urine 16 /lpf (0-2); Ketones,Urine Negative (Negative); Leukocyte Esterase,Urine Moderate (Negative); Mucus,Urine Many /hpf; Nitrite,Urine Negative (Negative); Protein,Urine 1+ (Negative); RBC,Urine 24 /hpf (0-5); Squamous Epithelial Cell,Urine 2 /hpf (0-4); WBC,Urine 8 /hpf (0-5)
[2020-11-04 18:11] LABS: Anion Gap 4 mmol/L; Chloride 108 mmol/L (98-107); Sodium 130 mmol/L (137-145)
[2020-11-04 18:13] LABS: Potassium 4.7 mmol/L (3.5-5.1)
--- NOTE | 2020-11-04 21:21 | CT ---
EXAMINATION TYPE: CT abdomen pelvis w con DATE OF EXAM: 11/04/2020 COMPARISON: 09/07/2020 HISTORY: Abdominal distention CT DLP: 3938 mGycm Automated exposure control for dose reduction was used. CONTRAST: Performed with IV Contrast, patient injected with 100 mL of Isovue 300. There is mild linear density left lung base consistent with subsegmental atelectasis. Heart size is n ormal. There is no pericardial effusion. Liver is small. There is massive abdominal ascites. Spleen is intact. There is no evidence of pancrea tic mass. Stomach is intact. The bowel is not dilated. I see no evidence of free air. There are some collateral vessels around the spleen consistent with portal venous hypertension. There are also some collateral vessels at the gas troesophageal junction. There are calcified gallstones. Gallbladder has fairly normal size. Lumbar vertebra have normal alignment. There is vacuum disc at L4-5. There is disc space narrowing at L2-3. There is no compression fracture. Posterior elements are intact. Bony pelvis is intact. There is no adrenal mass. Kidneys show satisfactory contrast opacification. There is no hydronephrosi s. Ureters are not dilated. There is no retroperitoneal adenopathy. Bladder distends smoothly. There is some prostatic calcification. IMPRESSION: There is massive abdominal ascites that is significantly increased compared to old exam. Subcutaneous edema around the abdomen. Irregular small liver consistent with cirrhosis. Portal venous hypertension. There is progression of the liver disease compared to old exam. Cholelithiasis unchang ed.
[2020-11-04] MEDS ORDERED: NALOXONE 0.4 MG/ML 1 ML VIAL IV PRN (22:15)
[2020-11-05] MEDS: MORPHINE SULFATE 4 MG/ML SYRINGE IV PRN ×2 (00:54→05:26)
[2020-11-05] MEDS ORDERED: HYDROmorphone 1 MG/ML 1 ML SYRINGE IVP STA (04:03)
[2020-11-05] MEDS ORDERED: MORPHINE SULFATE 2 MG/ML SYRINGE IVP STA (04:05)
[2020-11-05 05:41] LABS: Basophils # (A) 0.1 k/uL (0-0.2); Basophils % (A) 1 %; Eosinophils # (A) 0.2 k/uL (0-0.7); Eosinophils % (A) 3 %; HCT 38.4 % (39.0-53.0); HGB 13.5 gm/dL (13.0-17.5); Lymphocytes # (A) 1.1 k/uL (1.0-4.8); Lymphocytes % (A) 21 %; MCHC 35.2 g/dL (31.0-37.0); MCV 96.6 fL (80.0-100.0); Monocytes # (A) 0.4 k/uL (0-1.0); Monocytes % (A) 8 %; Neutrophils # (A) 3.4 k/uL (1.3-7.7); Neutrophils % (A) 65 %; Platelet Count 152 k/uL (150-450); RBC 3.98 m/uL (4.30-5.90); RDW 13.8 % (11.5-15.5); WBC 5.2 k/uL (3.8-10.6)
[2020-11-05 06:19] LABS: ALT 41 U/L (4-49); AST 70 U/L (17-59); African American GFR (CKD) >90 (>60 ml/min/1.73 sqM); Albumin 2.6 g/dL (3.5-5.0); Alkaline Phosphatase 147 U/L (38-126); Anion Gap 9 mmol/L; Blood Urea Nitrogen 13 mg/dL (9-20); Calcium 7.8 mg/dL (8.4-10.2); Carbon Dioxide 18 mmol/L (22-30); Chloride 107 mmol/L (98-107); Glucose 94 mg/dL (74-99); Non-African American GFR(CKD) >90 (>60 ml/min/1.73 sqM); Potassium 4.2 mmol/L (3.5-5.1); Sodium 134 mmol/L (137-145); Total Bilirubin 1.7 mg/dL (0.2-1.3); Total Protein 7.1 g/dL (6.3-8.2)
[2020-11-05] MEDS: MORPHINE SULFATE 2 MG/ML SYRINGE IV PRN ×2 (11:31→15:05)
--- NOTE | 2020-11-05 11:51 | P.HPIM ---
History of Present Illness Patient is a pleasant the 65-year-old male came in because of abdominal distention found to have significant ascites patient does have history of alcohol the liver disease and cirrhosis. Patient doesn't drink alcohol anymore. Patient denied any obvious abdominal pain does have some discomfort in thePeri- umblical area because of distention. Patient also found to be hyponatremic. Patient will need therapeutic paracentesis after which patient probably can be discharged. He may need scheduled outpatient diabetic paracentesis. No evidence is found his medical peritonitis although patient is receiving Rocephin which will be continued for now will not need any antibiotics upon discharge. REVIEW OF SYSTEMS: CONSTITUTIONAL: No fever, no malaise, no fatigue. HEENT: No recent visual problems or hearing problems. Denied any sore throat. CARDIOVASCULAR: No chest pain, orthopnea, PND, no palpitations, no syncope. PULMONARY: No shortness of breath, no cough, no hemoptysis. GASTROINTESTINAL: No diarrhea, no nausea, no vomiting, no abdominal pain. NEUROLOGICAL: No headaches, no weakness, no numbness. HEMATOLOGICAL: Denies any bleeding or petechiae. GENITOURINARY: Denies any burning micturition, frequency, or urgency. MUSCULOSKELETAL/RHEUMATOLOGICAL: Denies any joint pain, swelling, or any muscle pain. ENDOCRINE: Denies any polyuria or polydipsia. The rest of the 14-point review of systems is negative. PHYSICAL EXAMINATION: GENERAL: The patient is alert and oriented x3, not in any acute distress. Well developed, well nourished. HEENT: Pupils are round and equally reacting to light. EOMI. No scleral icterus. No conjunctival pallor. Normocephalic, atraumatic. No pharyngeal erythema. No thyromegaly. CARDIOVASCULAR: S1 and S2 present. No murmurs, rubs, or gallops. PULMONARY: Chest is clear to auscultation, no wheezing or crackles. ABDOMEN: Apparently distended abdomen with the medical hernia and the peripheral signs of cirrhosis, fluid thrill was appreciated.. MUSCULOSKELETAL: No joint swelling or deformity. EXTREMITIES: No cyanosis, clubbing, or pedal edema. NEUROLOGICAL: Gross neurological examination did not reveal any focal deficits. SKIN: No rashes. Assessment and plan -Ascites: Because of abdominal discomfort patient will need peptic paracentesis after which patient can be discharged there is no evidence of spontaneous Bactrim peritonitis clinically unless patient has greater than 250 nucleated cells in the ascites fluid. Patient was started on Aldactone and Lasix orally which is appropriate. Reviewed the CT of the abdomen -Hypervolemic hyponatremia -Alcoholic cirrhosis and liver disease and portal venous hypertension -Chronic cholelithiasis -History of chronic hepatitis C Probably will be discharged today after paracentesis. Past Medical History Past Medical History: Hypertension, Liver Disease Additional Past Medical History / Comment(s): hep C History of Any Multi-Drug Resistant Organisms: None Reported Past Surgical History: Appendectomy Additional Past Surgical History / Comment(s): paracentesis, jaw Past Anesthesia/Blood Transfusion Reactions: No Reported Reaction Past Psychological History: No Psychological Hx Reported Past Alcohol Use History: None Reported - Past Family History Mother Family Medical History: Unable to Obtain Additional Family Medical History / Comment(s): unknown Medications and Allergies Home Medications Medication Instructions Recorded Confirmed Type Furosemide [Lasix] 40 mg PO BID@0900,1600 #60 tab 11/05/20 Rx Spironolactone [Aldactone] 100 mg PO DAILY #30 tab 11/05/20 Rx Allergies Allergy/AdvReac Type Severity Reaction Status Date / Time No Known Allergies Allergy Verified 11/04/20 22:29 Physical Exam Vitals: Vital Signs Temp Pulse Resp BP Pulse Ox 11/05/20 06:43 20 11/05/20 05:25 89 20 114/87 99 11/05/20 04:12 92 20 118/78 99 11/05/20 03:16 20 11/05/20 02:02 20 11/05/20 00:47 98.1 F 107 H 18 141/86 98 11/04/20 20:00 91 18 142/90 100 11/04/20 17:58 92 16 123/57 99 11/04/20 16:12 98.7 F 94 18 110/80 99 Intake and Output 11/04/20 11/05/20 11/05/20 22:59 06:59 14:59 Other: Weight 99.79 kg Results CBC & Chem 7: 11/05/20 05:00 11/05/20 05:00 Labs: Abnormal Lab Results - Last 24 Hours (Table) 11/04/20 11/04/20 11/04/20 Range/Units 17:16 17:16 17:50 RBC 4.07 L (4.30-5.90) m/uL Hct 38.7 L (39.0-53.0) % Plt Count 144 L (150-450) k/uL Lymphocytes # 0.8 L (1.0-4.8) k/uL Sodium 130 L (137-145) mmol/L Chloride 108 H (98-107) mmol/L Carbon Dioxide 18 L (22-30) mmol/L Glucose 104 H (74-99) mg/dL Calcium 7.9 L (8.4-10.2) mg/dL Total Bilirubin 2.2 H (0.2-1.3) mg/dL AST 86 H (17-59) U/L Alkaline Phosphatase 165 H (38-126) U/L Albumin 2.6 L (3.5-5.0) g/dL Urine Protein 1+ H (Negative) Urine Blood Small H (Negative) Urine Bilirubin 1+ H (Negative) Ur Leukocyte Esterase Moderate H (Negative) Urine RBC 24 H (0-5) /hpf Urine WBC 8 H (0-5) /hpf Calcium Oxalate Crystal Few H (None) /hpf Urine Bacteria Rare H (None) /hpf Hyaline Casts 16 H (0-2) /lpf Urine Mucus Many H (None) /hpf 11/05/20 11/05/20 Range/Units 05:00 05:00 RBC 3.98 L (4.30-5.90) m/uL Hct 38.4 L (39.0-53.0) % Plt Count (150-450) k/uL Lymphocytes # (1.0-4.8) k/uL Sodium 134 L (137-145) mmol/L Chloride (98-107) mmol/L Carbon Dioxide 18 L (22-30) mmol/L Glucose (74-99) mg/dL Calcium 7.8 L (8.4-10.2) mg/dL Total Bilirubin 1.7 H (0.2-1.3) mg/dL AST 70 H (17-59) U/L Alkaline Phosphatase 147 H (38-126) U/L Albumin 2.6 L (3.5-5.0) g/dL Urine Protein (Negative) Urine Blood (Negative) Urine Bilirubin (Negative) Ur Leukocyte Esterase (Negative) Urine RBC (0-5) /hpf Urine WBC (0-5) /hpf Calcium Oxalate Crystal (None) /hpf Urine Bacteria (None) /hpf Hyaline Casts (0-2) /lpf Urine Mucus (None) /hpf
--- NOTE | 2020-11-05 11:53 | P.DS ---
Providers Date of admission: 11/04/20 22:15 Attending physician: Marilee Carlton MD Consults: 11/04/20 22:16 Consult Physician Urgent Consulting Provider: Marielle Juarez Consult Reason/Comments: Ascites, abdominal pain Do you want consulting provider notified?: Yes Primary care physician: Stated None Hospital Course: Refer to my history of present illness for further details Patient Condition at Discharge: Stable Plan - Discharge Summary New Discharge Prescriptions: New Spironolactone [Aldactone] 100 mg PO DAILY #30 tab Furosemide [Lasix] 40 mg PO BID@0900,1600 #60 tab Discharge Medication List Furosemide [Lasix] 40 mg PO BID@0900,1600 #60 tab 11/05/20 [Rx] Spironolactone [Aldactone] 100 mg PO DAILY #30 tab 11/05/20 [Rx] Follow up Appointment(s)/Referral(s): Isela Bey MD [REFERRING] - 1 Week Marielle Juarez MD [STAFF PHYSICIAN] - 1 Week
--- NOTE | 2020-11-05 14:14 | P.CONS ---
History of Present Illness - Reason for Consult Consult date: 11/05/20 Ascites, abdominal pain Requesting physician: Troy Sam - Chief Complaint abdominal pain - History of Present Illness This is a 65-year-old male with a history of decompensated cirrhosis of the liver with ascites from alcohol abuse. He presented to the emergency department with increased abdominal distention and discomfort. He's had frequent admissions for abdominal ascites, his last admission was in August of this year with a transfer to [facility] for possible TIPS procedure. Patient came to the emergency department yesterday for evaluation of abdominal pain and increased abdominal distention. he states he can't remember what procedures they did exactly at [facility]. He does not believe they did any stenting, states that they just did a paracentesis. He has had no further follow-up. His last paracentesis was on 09/16/2020 with 2.8 L of fluid removed. Patient has been noncompliant in the past with his diuretics, patient is prescribed Lasix 40 mg twice a day and Aldactone 100 mg dailywhich he has not been taking. Admission labs WBC 5.2 hemoglobin 13.5 hematocrit 38 and platelet count 152,000 and INR 1.1 BUN 13 creatinine 0.7 sodium 134 potassium 4.2 total bilirubin 1.7 AST 70 ALT 41 alk phos 147. He does CT of the abdomen and pelvis that showed massive amount of ascites.the patient states he has not been taking his medications as prescribed not really sure why, he also has not been following up with gastroenterology and has not been getting his paracentesis every 2-3 weeks as he is supposed to. Patient states he does have some insurance issues. Multiple consults have been done in the past to social work. He is denying any nausea or vomiting. States he is not drinking alcohol and last time he drank any alcohol was 3 months ago. Review of Systems REVIEW OF SYSTEMS: CARDIOPULMONARY: No chest pain or shortness of breath. Gastrointestinal: Diffuse abdominal pain with abdominal distention. No nausea or vomiting. No hematemesis, coffee-ground emesis. No rectal bleeding, or melena. GENITOURINARY: No dysuria or hematuria. MUSCULOSKELETAL: Reports normal range of motion., Joint pain. SKIN: No rashes. No jaundice. ENDOCRINE: No chills, fevers. No excessive weight gain or loss. No polydipsia or polyuria. PSYCHIATRIC: Unremarkable. NEUROLOGY: No change in mental status. Denies dizziness, headache. ENT: Vision unremarkable. CONSTITUTIONAL: No recent weight loss. No fever, chills, night sweats. Past Medical History Past Medical History: Hypertension, Liver Disease Additional Past Medical History / Comment(s): hep C History of Any Multi-Drug Resistant Organisms: None Reported Past Surgical History: Appendectomy Additional Past Surgical History / Comment(s): paracentesis, jaw Past Anesthesia/Blood Transfusion Reactions: No Reported Reaction Past Psychological History: No Psychological Hx Reported Past Alcohol Use History: None Reported - Past Family History Mother Family Medical History: Unable to Obtain Additional Family Medical History / Comment(s): unknown Medications and Allergies Home Medications Medication Instructions Recorded Confirmed Type Furosemide [Lasix] 40 mg PO BID@0900,1600 #60 tab 11/05/20 Rx Spironolactone [Aldactone] 100 mg PO DAILY #30 tab 11/05/20 Rx Allergies Allergy/AdvReac Type Severity Reaction Status Date / Time No Known Allergies Allergy Verified 11/04/20 22:29 Physical Exam Vitals: Vital Signs Temp Pulse Resp BP Pulse Ox 11/05/20 06:43 20 11/05/20 05:25 89 20 114/87 99 11/05/20 04:12 92 20 118/78 99 11/05/20 03:16 20 11/05/20 02:02 20 11/05/20 00:47 98.1 F 107 H 18 141/86 98 11/04/20 20:00 91 18 142/90 100 11/04/20 17:58 92 16 123/57 99 11/04/20 16:12 98.7 F 94 18 110/80 99 Intake and Output 11/04/20 11/05/20 11/05/20 22:59 06:59 14:59 Other: Weight 99.79 kg General appearance: The patient is alert, oriented, appears in no acute distress. HET: Head is normocephalic and atraumatic. Conjunctiva pink. Sclera anicteric. Neck: Supple without lymphadenopathy. Trachea midline. Heart: S1 S2. Regular rate and rhythm. Lungs: Clear to auscultation. Abdomen: Firm, diffuse tenderness, significantly distended, bowel sounds present. No guarding or rigidity. Skin: No rashes. No jaundice. Extremities: Normal skin color and turgor. No pedal edema. Neurological: No focal deficits. Alert and oriented 3.. Results CBC & Chem 7: 11/05/20 05:00 11/05/20 05:00 Labs: Abnormal Lab Results - Last 24 Hours (Table) 11/04/20 11/04/20 11/04/20 Range/Units 17:16 17:16 17:50 RBC 4.07 L (4.30-5.90) m/uL Hct 38.7 L (39.0-53.0) % Plt Count 144 L (150-450) k/uL Lymphocytes # 0.8 L (1.0-4.8) k/uL Sodium 130 L (137-145) mmol/L Chloride 108 H (98-107) mmol/L Carbon Dioxide 18 L (22-30) mmol/L Glucose 104 H (74-99) mg/dL Calcium 7.9 L (8.4-10.2) mg/dL Total Bilirubin 2.2 H (0.2-1.3) mg/dL AST 86 H (17-59) U/L Alkaline Phosphatase 165 H (38-126) U/L Albumin 2.6 L (3.5-5.0) g/dL Urine Protein 1+ H (Negative) Urine Blood Small H (Negative) Urine Bilirubin 1+ H (Negative) Ur Leukocyte Esterase Moderate H (Negative) Urine RBC 24 H (0-5) /hpf Urine WBC 8 H (0-5) /hpf Calcium Oxalate Crystal Few H (None) /hpf Urine Bacteria Rare H (None) /hpf Hyaline Casts 16 H (0-2) /lpf Urine Mucus Many H (None) /hpf 11/05/20 11/05/20 Range/Units 05:00 05:00 RBC 3.98 L (4.30-5.90) m/uL Hct 38.4 L (39.0-53.0) % Plt Count (150-450) k/uL Lymphocytes # (1.0-4.8) k/uL Sodium 134 L (137-145) mmol/L Chloride (98-107) mmol/L Carbon Dioxide 18 L (22-30) mmol/L Glucose (74-99) mg/dL Calcium 7.8 L (8.4-10.2) mg/dL Total Bilirubin 1.7 H (0.2-1.3) mg/dL AST 70 H (17-59) U/L Alkaline Phosphatase 147 H (38-126) U/L Albumin 2.6 L (3.5-5.0) g/dL Urine Protein (Negative) Urine Blood (Negative) Urine Bilirubin (Negative) Ur Leukocyte Esterase (Negative) Urine RBC (0-5) /hpf Urine WBC (0-5) /hpf Calcium Oxalate Crystal (None) /hpf Urine Bacteria (None) /hpf Hyaline Casts (0-2) /lpf Urine Mucus (None) /hpf CT scan - abdomen: report reviewed (there is massive abdominal ascites that is significantly increased compared to old exam. Subcutaneous edema around the abdomen. Irregular small liver consistent with cirrhosis. Portal venous hypertension. There is progression of the liver disease compared to old exam. Cholelithiasis unchanged.) Assessment and Plan (1) Ascites due to alcoholic cirrhosis Narrative/Plan: 65-year-old male admitted with recurrent ascites secondary to portal hypertension from alcoholic cirrhosis of the liver. The patient is non- compliant with medications and follow up paracentesis. He has a long history of alcohol abuse and non-compliance of care. He was recently admitted in August of this year and transferred to [facility] for evaluation for TIPS procedure. The patient is unsure if they did any TIPS procedure, he states he believes they did a paracentesis. He denies any alcohol consumption for 3 months. Plan for paracentesis with fluid studies, albumin. Current Visit: No Status: Acute Code(s): K70.31 - ALCOHOLIC CIRRHOSIS OF LIVER WITH ASCITES SNOMED Code(s): 6868296121196408 (2) Hepatitis C Current Visit: Yes Status: Acute Code(s): B19.20 - UNSPECIFIED VIRAL HEPATITIS C WITHOUT HEPATIC COMA SNOMED Code(s): 97319937 (3) Decompensation of cirrhosis of liver Current Visit: No Status: Acute Code(s): K72.90 - HEPATIC FAILURE, UNSPECIFIED WITHOUT COMA; K74.60 - UNSPECIFIED CIRRHOSIS OF LIVER SNOMED Code(s): 009929103 (4) Noncompliance with medication regimen Current Visit: No Status: Acute Code(s): Z91.14 - PATIENT'S OTHER NONCOMPLIANCE WITH MEDICATION REGIMEN SNOMED Code(s): 587874926 Plan: 1. Continue symptomatic and supportive care 2. Lasix 40 mg twice a day and Aldactone 100 mg daily 3. Low sodium diet 4. Paracentesis with fluid studies ordered 5. Albumin for large volume paracentesis 6. Alcohol abstinence 7. Discussed importance with patient for medication compliance as well as follow up appointments 8. Please obtain records from [facility] 9. Agree patient may be discharged home after paracentesis, pending fluid studies 10. Follow-up with gastroenterology Thank you for this consultation, we will continue to follow. Dr. Allan Juarez I agree with the dictator's note, documented as a scribe by Sheela Romano.
[2020-11-05] MEDS: ALBUMIN HUMAN 25% 50 ML in EMPTY BAG 1 BAG IVPB SCH ×4 (14:32→15:25)
[2020-11-05] MEDS ORDERED: LACTULOSE 20 GM/30 ML CUP PO SCH (14:36)
[2020-11-05 14:39] VITALS: RESP 18
[2020-11-05] MEDS ORDERED: FUROSEMIDE 40 MG TAB PO SCH (16:00)
--- NOTE | 2020-11-05 16:35 | US ---
EXAMINATION TYPE: US paracentesis abd w/image DATE OF EXAM: 11/05/2020 COMPARISON: NONE HISTORY: Ascites. PROCEDURE: Maximal barrier technique was utilized. The skin overlying a suitable pocket of fluid was localized with ultrasound and the overlying skin was prepped and draped. Ultrasound was utilized with sterile technique. Lidocaine was used for local anesthesia and a skin jose m made with a scalpel. Catheter was advanced under direct ultrasound guidance into a suitable pocket of fluid and approximately 14.4 lite rs of serous fluid were removed. Catheter was withdrawn and hemostasis achieved. There is no immedi ate complication; the patient is discharged in stable condition. IMPRESSION: STATUS POST ULTRASOUND GUIDED PARACENTESIS FOR PALLIATION OF ASCITES. THIS PROCEDURE WA S PERFORMED BY THE UNDERSIGNED.
[2020-11-05 18:33] LABS: Appearance,BF Clear; Nucleated Cells, Body Fluid 12 /uL; RBC, Body Fluid 6 /uL
[2020-11-05] MEDS ORDERED: MORPHINE SULFATE 2 MG/ML SYRINGE IM STA (19:02)
[2020-11-05 19:26] VITALS: BP 111/70; PULSE 99; TEMP 97.4
[2020-11-06 02:41] LABS: Albumin, Fluid Source Ascites
[2020-11-06] MEDS ORDERED: SPIRONOLACTONE 25 MG TAB PO SCH (09:00)
== END 2020-11-05 19:27 | disposition home or self-care (01) ==
LOC: EC 16:00 → 5NMEDONC 22:15 → 6NMEDSUR 23:37
PROVIDERS: ADMIT Internal Medicine; ATTEND Internal Medicine
DX: K70.31 Alcoholic cirrhosis of liver with ascites (principal); E87.1 Hypo-osmolality and hyponatremia; E87.70 Fluid overload, unspecified; K76.6 Portal hypertension; K80.20 Calculus of gallbladder without cholecystitis without obstruction; I10 Essential (primary) hypertension; K70.40 Alcoholic hepatic failure without coma; F10.10 Alcohol abuse, uncomplicated; Z91.14 Patient's other noncompliance with medication regimen; Z91.19 Patient's noncompliance with other medical treatment and regimen; T50.0X6A Underdosing of mineralocorticoids and their antagonists, initial encounter; T50.1X6A Underdosing of loop [high-ceiling] diuretics, initial encounter; Z20.822 Contact with and (suspected) exposure to COVID-19; Z86.19 Personal history of other infectious and parasitic diseases; Z79.899 Other long term (current) drug therapy; Z98.890 Other specified postprocedural states
CPT/HCPCS: 96376 ×2; 96365; 96372; 96375; 99285; 36415; 80053 ×2; 82042; 89050; 82140; 82150; 83605; 83690; 85025 ×2; 85610; 85730; 81001; 87070; 87205; 87075; 84157; 87635; 49083; 74177; G0378 ×2; J2270 ×3; J0696; P9047; Q9967